=== PATIENT | male | born 1965 | race Two or more races ===

== ENCOUNTER 2019-11-20 10:46 | Outpatient (REF) | payer MEDICARE, SELFPAY ==
--- NOTE | 2019-11-20 10:49 | CT_ITS ---
EXAMINATION: CT CHEST SCREENING CLINICAL INFORMATION: Lung cancer screening COMPARISON: Previous chest x-ray June 2019 TECHNIQUE: Multidetector volumetric CT imaging of the chest is performed without contrast using low dose technique. Additional 2D coronal and sagittal reformatted images and axial 3D maximum intensity projection (MIP) images are generated on the CT workstation. This CT examination was performed using dose optimization techniques as appropriate, variously including the following: *Automated exposure control *Adjustment of mA and/or kV according to patient size (this includes techniques or standardized protocols for targeted exams where dose is matched to indication/reason for exam; i.e. extremities or head) *Use of iterative reconstruction technique DLP: 54 mGy-cm FINDINGS: LUNGS: There is a 3 mm right upper lobe nodule axial image 168 series 5. There is evidence of mild emphysema. No evidence of interstitial lung disease or bronchiectasis is seen. No endobronchial or endotracheal lesion is seen. MEDIASTINUM: The mediastinum is normal. The heart does not appear enlarged. There is no coronary artery calcification. There is no pericardial effusion. There are no enlarged hilar or mediastinal lymph nodes. The thoracic aorta is normal in caliber. PLEURA: There is no pleural effusion. No pleural mass or thickening. AXILLA: No lymphadenopathy. 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 IMPRESSION: Mild emphysema. 3 mm right upper lobe pulmonary nodule. Congenital thoracic scoliosis. ASSESSMENT: Lung-RADS category 2: Benign RECOMMENDATION: Annual low-dose chest CT follow-up recommended.
== END 2019-11-20 10:47 | disposition home or self-care (01) ==
LOC: HO.CT 10:46
PROVIDERS: PCP Internal Medicine; Visit Provider Surgery
DX: Z12.2 Encounter for screening for malignant neoplasm of respiratory organs (principal); Z87.891 Personal history of nicotine dependence
CPT/HCPCS: 71250

== ENCOUNTER 2019-12-10 09:23 | Outpatient (REF) | payer MEDICARE, SELFPAY | END 2019-12-10 09:24 | disposition home or self-care (01) | LOC: HO.LAB 09:23 | PROVIDERS: Visit Provider Internal Medicine | DX: Z20.828 Contact with and (suspected) exposure to other viral communicable diseases (principal) | CPT/HCPCS: 87635 ==

== ENCOUNTER → 2020-03-26 15:37 | Outpatient (BNVA) | payer MEDICARE, SELFPAY | PROVIDERS: PCP Internal Medicine; Visit Provider Urology | DX: Z13.89 Encounter for screening for other disorder (principal) | CPT/HCPCS: 99202 ==

== ENCOUNTER → 2020-04-10 09:41 | Outpatient (BNVA) | payer OTHER, SELFPAY | PROVIDERS: PCP Internal Medicine; Visit Provider Nurse Practitioner | DX: K21.9 Gastro-esophageal reflux disease without esophagitis (principal) | CPT/HCPCS: Q3014 ==

== ENCOUNTER 2020-04-14 09:10 | Outpatient (REF) | payer OTHER, SELFPAY | END 2020-04-14 09:11 | disposition home or self-care (01) | LOC: HO.LNP 09:10 | PROVIDERS: Visit Provider Nurse Practitioner | DX: K21.9 Gastro-esophageal reflux disease without esophagitis (principal) | CPT/HCPCS: 87338 ==

== ENCOUNTER → 2020-04-27 07:40 | Outpatient (BNV) | payer OTHER, SELFPAY | PROVIDERS: PCP Internal Medicine; Visit Provider Internal Medicine | DX: D75.1 Secondary polycythemia (principal) | CPT/HCPCS: 99213; 99214 ==

== ENCOUNTER → 2020-05-15 09:06 | Outpatient (BNVA) | payer OTHER, SELFPAY | PROVIDERS: PCP Internal Medicine; Visit Provider Nurse Practitioner | DX: A04.8 Other specified bacterial intestinal infections (principal); K21.9 Gastro-esophageal reflux disease without esophagitis; E83.119 Hemochromatosis, unspecified; F17.200 Nicotine dependence, unspecified, uncomplicated; Z71.6 Tobacco abuse counseling | CPT/HCPCS: 99212 ==

== ENCOUNTER → 2020-07-07 09:17 | Day surgery (SDC) | payer OTHER, SELFPAY ==
[2020-07-01 12:55] VITALS: BMI 28.4
--- NOTE | 2020-07-06 09:04 | P.CONAN_ITS ---
HPI - Anesthesia Eval Consult details Narrative: 54yo M for Upper Endoscopy [facility] Active Problems Active Problems: All Active Problems (Updated 06/26/20 @ 09:35 by OMAR Heck) H. pylori infection (Acute) Polycythemia (Chronic) GERD (gastroesophageal reflux disease) (Acute) Hemochromatosis (Acute) Right knee pain (Acute) Scoliosis (Acute) Depression (Acute) Hyperlipidemia (Acute) Erectile dysfunction (Acute) Past Medical History Medical History Anxiety Carotid artery aneurysm Depression Dextroscoliosis Erectile dysfunction Erectile dysfunction GERD (gastroesophageal reflux disease) Hemochromatosis Hyperlipidemia Primary hypogonadism in male Right knee pain Schizophrenia Scoliosis Spondylosis Family History Family History Father No problems noted. Mother Breast cancer Surgical History Surgical History H/O colonoscopy History of esophagogastroduodenoscopy (EGD) History of surgery on arm Social History Social History Household Members: Spouse Alcohol intake: current Alcohol intake frequency: holidays/special occasions only Smoking Status: Current every day smoker Cigarettes Per Day: 7 Are you DNR?: No Advance Directives: Yes Advance Directives Information Provided: Yes Advance Directives on File: Yes Advance Directives Date on File: 11/20/19 Meds Allergies Allergy/AdvReac Type Severity Reaction Status Date / Time No Known Allergies Allergy Verified 06/26/20 09:34 [No Known Allergies*] Home Medications Medication Instructions Recorded Confirmed Last Taken Type aripiprazole 2 mg tablet 2 mg PO DAILY 12/24/19 07/01/20 Unknown History mirtazapine 45 mg tablet 45 mg PO BEDTIME 12/24/19 07/01/20 Unknown History zolpidem 10 mg tablet 10 mg PO BEDTIME PRN 12/24/19 07/01/20 Unknown History clonazepam 0.5 mg tablet 0.5 mg PO DAILY 04/10/20 07/01/20 Unknown History pantoprazole 1 tab PO BID 07/01/20 07/01/20 Unknown History Exam Exam Date and Time: July 06, 2020 0904 Height,Weight and Vital Signs: Height 5 ft 6 in Weight 79.832 kg Assessment and Plan Assessment Anesthesia Assessment: Chart Reviewed
== END ==
PROVIDERS: PCP Internal Medicine; Visit Provider Internal Medicine Gastroenterology
DX: R10.13 Epigastric pain (principal); Z53.29 Procedure and treatment not carried out because of patient's decision for other reasons; K21.9 Gastro-esophageal reflux disease without esophagitis; E83.119 Hemochromatosis, unspecified; Z79.899 Other long term (current) drug therapy

== ENCOUNTER 2021-02-01 11:23 | Outpatient (REF) | payer OTHER, SELFPAY ==
[2021-02-01 12:32] LABS: COVID-19 Test Negative (Negative)
== END 2021-02-01 11:24 | disposition home or self-care (01) ==
LOC: HO.LAB 11:23
PROVIDERS: PCP Internal Medicine; Visit Provider Internal Medicine
DX: Z20.822 Contact with and (suspected) exposure to COVID-19 (principal)
CPT/HCPCS: 36415; 87635; C9803

== ENCOUNTER 2021-03-02 13:02 | Outpatient (REF) | payer OTHER, SELFPAY ==
--- NOTE | ~2021-03-02 | CT_ITS ---
EXAMINATION: CT CHEST SCREENING CLINICAL INFORMATION: Current smoker. 41. COMPARISON: Previous CT November 2019 TECHNIQUE: Multidetector volumetric CT imaging of the chest is performed without contrast using low dose technique. Additional 2D coronal and sagittal reformatted images and axial 3D maximum intensity projection (MIP) images are generated on the CT workstation. This CT examination was performed using dose optimization techniques as appropriate, variously including the following: *Automated exposure control *Adjustment of mA and/or kV according to patient size (this includes techniques or standardized protocols for targeted exams where dose is matched to indication/reason for exam; i.e. extremities or head) *Use of iterative reconstruction technique DLP: 49 mGy-cm FINDINGS: LUNGS: There is evidence of emphysema. The previously identified 3 mm right upper lobe nodule is no longer seen and may have represented bronchial soft tissue opacification. The lungs are clear. No endobronchial or endotracheal lesion is seen. MEDIASTINUM: The thoracic aorta is tortuous. The mediastinum is otherwise normal. PLEURA: There is no pleural effusion. No pleural mass or thickening. AXILLA: No lymphadenopathy. UPPER ABDOMEN: Unremarkable OSSEOUS STRUCTURES: There is a congenital thoracic scoliosis and multiple butterfly and hemivertebrae. CT/CT lung screening IMPRESSION: Emphysema. Congenital scoliosis. ASSESSMENT: Lung-RADS category 1: Negative RECOMMENDATION: Annual low-dose chest CT follow-up recommended.
== END 2021-03-02 13:03 | disposition home or self-care (01) ==
LOC: HO.CT 13:02
PROVIDERS: Visit Provider Physician Assistant Medical
DX: Z12.2 Encounter for screening for malignant neoplasm of respiratory organs (principal); Z87.891 Personal history of nicotine dependence
CPT/HCPCS: 71271

== ENCOUNTER → 2021-03-25 09:33 | Outpatient (BNVA) | payer OTHER, SELFPAY | PROVIDERS: PCP Internal Medicine; Visit Provider Internal Medicine Endocrinology, Diabetes & Metabolism | DX: E29.1 Testicular hypofunction (principal) | CPT/HCPCS: 99202 ==

== ENCOUNTER 2021-04-27 07:48 | Outpatient (REF) | payer OTHER, SELFPAY ==
[2021-04-27 08:27] LABS: Hematocrit 53.8 % (42.0-52.0); Hemoglobin 17.6 g/dl (14.0-18.0); Mean Corpuscular HGB Conc 32.7 g/dl (31.0-36.0); Mean Corpuscular Hemoglobin 30.2 pg (27.0-33.0); Mean Corpuscular Volume 92.3 fL (80.0-98.0); Mean Platelet Volume 10.1 fL (9.4-12.4); Platelet Count 243 X10*3/uL (160-400); Red Blood Count 5.83 X10*6/uL (4.60-5.80); Red Cell Distribution Width 12.6 % (11.0-16.0); White Blood Count 6.9 X10*3/uL (4.8-10.8)
[2021-04-27 08:54] LABS: Alanine Aminotransferase 24 U/L (0-40); Albumin Level 3.9 g/dL (3.5-5.0); Alkaline Phosphatase 63 U/L (39-117); Anion Gap 11 (12-20); Aspartate Amino Transferase 19 U/L (5-37); Bilirubin Total 0.2 mg/dL (0.0-1.0); Blood Urea Nitrogen 11 mg/dL (9-16); Carbon Dioxide 27 mmol/L (22-29); Chloride 106 mmol/L (96-108); Cholesterol 185 mg/dL; Estimated Glomerular Filt Rate > 60; Glucose Fasting 113 mg/dL (60-99); HDL Cholesterol 42 mg/dL; LDL Cholesterol Calculated 126 mg/dl; Potassium 4.7 mmol/L (3.3-5.1); Sodium 139 mmol/L (135-145); Total Protein 7.2 g/dL (6.5-8.0); Triglycerides 89 mg/dL
== END 2021-04-27 07:49 | disposition home or self-care (01) ==
LOC: HO.LAB 07:48
PROVIDERS: PCP Internal Medicine; Visit Provider Internal Medicine
DX: Z00.00 Encounter for general adult medical examination without abnormal findings (principal); E78.5 Hyperlipidemia, unspecified
CPT/HCPCS: 36415; 80053; 80061; 85027

== ENCOUNTER → 2021-05-04 16:21 | Outpatient (BNVA) | payer OTHER, SELFPAY | PROVIDERS: PCP Internal Medicine; Referring Provider Internal Medicine; Visit Provider Nurse Practitioner | DX: A04.8 Other specified bacterial intestinal infections (principal); K21.9 Gastro-esophageal reflux disease without esophagitis | CPT/HCPCS: 99212 ==

== ENCOUNTER 2021-05-08 08:32 | Outpatient (REF) | payer OTHER, SELFPAY | END 2021-05-08 08:33 | disposition home or self-care (01) | LOC: HO.LNP 08:32 | PROVIDERS: Visit Provider Nurse Practitioner | DX: A04.8 Other specified bacterial intestinal infections (principal) | CPT/HCPCS: 87338 ==

== ENCOUNTER 2021-05-17 08:30 | Outpatient (REF) | payer OTHER, SELFPAY ==
[2021-05-17 11:15] LABS: Appearance Urine CLEAR; Color Urine YELLOW; Glucose Urine UA NEG (NEG); Leukocyte Esterase Urine NEG (NEG); Nitrite Urine NEG (NEG); PH 5.5 (5.0-8.0); Specific Gravity - Urine >= 1.030 (1.005-1.025); Urine Blood NEG (NEG); Urine Ketones NEG (NEG); Urine Protein NEG (NEG-TRACE)
[2021-05-17 11:34] LABS: Bacteria Urine TRACE /LPF; Renal Epithelial Cells Urine 1+ /LPF; Squamous Epithelial Cell Urine 3+ /LPF
== END 2021-05-17 08:31 | disposition home or self-care (01) ==
LOC: HO.BBR 08:30
PROVIDERS: PCP Internal Medicine; Visit Provider Internal Medicine
DX: D75.1 Secondary polycythemia (principal); E78.5 Hyperlipidemia, unspecified; F32.9 Major depressive disorder, single episode, unspecified; E83.119 Hemochromatosis, unspecified
CPT/HCPCS: 81001; 85018; 99195

== ENCOUNTER 2021-06-30 07:47 | Outpatient (REF) | payer OTHER, SELFPAY ==
--- NOTE | ~2021-06-30 | MM_ITS ---
EXAMINATION: BONE DENSITOMETRY CLINICAL INDICATION: Screening. COMPARISON: None (current study represents initial baseline exam). TECHNIQUE: Using a [employer] DXA System (software version: 13.1) manufactured by [employer], dual-energy x-ray absorptiometry was performed of the lumbar spine and left hip. The images are of good technical quality. Summary results are attached. FINDINGS: AP SPINE L2-L4 (excluding L1): The data of L1-L4 has been changed to exclude the L1 vertebral body, because degenerative changes at this level may cause overestimation of lumbar spine density. BMD 0.962 g/cm2, Z-score -1.9, T-score -2.3, osteopenia. LEFT FEMUR, NECK: BMD 0.848 g/cm2, Z-score -0.8, T-score -1.7, osteopenia. LEFT FEMUR, TOTAL: BMD 1.003 g/cm2, Z-score -0.2, T-score -0.7, normal. IDENTIFIED RISK FACTORS: Hypogonadism, osteoporosis, secondary osteoporosis, tobacco use (current smoker). HISTORY OF FRACTURE: None listed. MEDICATIONS: None listed. MM/XR DEXA axial skeleton IMPRESSION: 1. DIAGNOSIS: Osteopenia based on the lowest T-score value of -2.3 in the lumbar spine applying World Health Organization criteria. 2. 10-YEAR FRACTURE RISK PREDICTION, FRAX: Major osteoporotic fracture (clinical spine, forearm, hip or shoulder) 3.4%. Hip fracture 0.7%. 3. Treatment Recommendations: NOF guidelines recommend consideration for treatment in postmenopausal women and men age 50 and older presenting with the following: -A hip or vertebral (clinical or morphometric) fracture. -T-score less than or equal to -2.5 at the femoral neck or spine after appropriate evaluation to exclude secondary causes. -Low bone mass at the hip or spine and a 10-year fracture probability by FRAX of greater than or equal to 3% for hip fracture or greater than or equal to 20% for major osteoporotic fracture based on the [place] adapted WHO algorithm. 4. Other Recommendations: All treatment decisions require clinical judgment and consideration of individual patient factors, including patient preferences, comorbidities, previous drug use, risk factors not captured in the FRAX model (e.g. frailty, falls, vitamin D deficiency, increased bone turnover, interval significant decline in bone density) and possible under or overestimation of fracture risk by FRAX. Additional medical evaluation for secondary cause of low bone mineral density may be appropriate. FUTURE SCAN RECOMMENDATION: People with diagnosed cases of osteoporosis or at high risk for fracture should have regular bone mineral density tests. For patients eligible for Medicare, routine testing is allowed once every 2 years. The testing frequency can be increased to one year for patients who have rapidly progressing disease, those who are receiving or discontinuing medical therapy to restore bone mass, or have additional risk factors.
== END 2021-06-30 07:48 | disposition home or self-care (01) ==
LOC: HO.RESP 07:47
PROVIDERS: PCP Internal Medicine; Visit Provider Internal Medicine
DX: Z00.00 Encounter for general adult medical examination without abnormal findings (principal); Z13.820 Encounter for screening for osteoporosis; E29.1 Testicular hypofunction; F17.210 Nicotine dependence, cigarettes, uncomplicated; G47.33 Obstructive sleep apnea (adult) (pediatric); G47.30 Sleep apnea, unspecified; R06.83 Snoring; R40.0 Somnolence
CPT/HCPCS: 77080

== ENCOUNTER → 2021-07-09 07:37 | Outpatient (BNVA) | payer OTHER, SELFPAY | PROVIDERS: PCP Internal Medicine; Visit Provider Nurse Practitioner | DX: K21.9 Gastro-esophageal reflux disease without esophagitis (principal); K59.04 Chronic idiopathic constipation | CPT/HCPCS: 99212 ==

== ENCOUNTER 2021-08-17 08:51 | Outpatient (REF) | payer OTHER, SELFPAY | END 2021-08-17 08:52 | disposition home or self-care (01) | LOC: HO.BBR 08:51 | PROVIDERS: Visit Provider Internal Medicine | DX: D75.1 Secondary polycythemia (principal) | CPT/HCPCS: 85018; 99195 ==

== ENCOUNTER 2021-09-13 11:40 | Outpatient (REF) | payer OTHER, SELFPAY ==
[2021-09-13 12:29] LABS: COVID-19 Test Negative (Negative); IDNOW Serial# 16C4AD1C
== END 2021-09-13 11:41 | disposition home or self-care (01) ==
LOC: HO.LAB 11:40
PROVIDERS: Visit Provider Internal Medicine
DX: Z20.822 Contact with and (suspected) exposure to COVID-19 (principal)
CPT/HCPCS: 87635; C9803

== ENCOUNTER 2021-11-17 07:58 | Outpatient (REF) | payer OTHER, SELFPAY | END 2021-11-17 07:59 | disposition home or self-care (01) | LOC: HO.BBR 07:58 | PROVIDERS: PCP Internal Medicine; Visit Provider Internal Medicine | DX: D75.1 Secondary polycythemia (principal) | CPT/HCPCS: 85014; 85018; 99195 ==

== ENCOUNTER 2022-02-17 08:56 | Outpatient (REF) | payer OTHER, SELFPAY | END 2022-02-17 08:57 | disposition home or self-care (01) | LOC: HO.BBR 08:56 | PROVIDERS: PCP Internal Medicine; Visit Provider Internal Medicine | DX: D75.1 Secondary polycythemia (principal) | CPT/HCPCS: 85018; 99195 ==

== ENCOUNTER 2022-03-10 08:16 | Outpatient (REF) | payer OTHER, SELFPAY ==
--- NOTE | ~2022-03-10 | CT_ITS ---
EXAMINATION: CT CHEST SCREENING CLINICAL INFORMATION: Current smoker with 30 pack-year history of smoking. COMPARISON: 03/02/2021 and 11/20/2019. TECHNIQUE: Multidetector volumetric CT imaging of the chest is performed without contrast using low dose technique. Additional 2D coronal and sagittal reformatted images and axial 3D maximum intensity projection (MIP) images are generated on the CT workstation. This CT examination was performed using dose optimization techniques as appropriate, variously including the following: *Automated exposure control *Adjustment of mA and/or kV according to patient size (this includes techniques or standardized protocols for targeted exams where dose is matched to indication/reason for exam; i.e. extremities or head) *Use of iterative reconstruction technique DLP: 50 mGy-cm FINDINGS: LUNGS: Central airways are widely patent. There is mild bronchial wall thickening seen bilaterally. No bronchiectasis is seen. No confluent parenchymal disease is noted. There are a few scattered 1 to 2 mm densities with no suspicious nodule appreciated. MEDIASTINUM: The visualized thyroid gland appears unremarkable. Heart normal size. No pericardial effusion. No coronary artery calcification identified. No mediastinal or hilar lymphadenopathy. No thoracic aortic aneurysm. CORONARY ARTERY CALCIFICATION: None visualized on this study. PLEURA: There is no pleural effusion. No pleural mass or thickening. AXILLA: No lymphadenopathy. UPPER ABDOMEN: There is a small hiatal hernia present. OSSEOUS STRUCTURES: No destructive bony lesions identified. There is congenital scoliosis of the upper thoracic spine convex left and of the lower thoracic spine convex right. 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 CT/CT lung screening IMPRESSION: No significant lung nodules identified. Scattered 1 to 2 mm densities. No significant emphysematous change appreciated. Congenital scoliosis with multiple hemivertebrae present. ASSESSMENT: Lung-RADS category 2: Benign RECOMMENDATION: Routine annual low-dose CT screening in 12 months.
== END 2022-03-10 08:17 | disposition home or self-care (01) ==
LOC: HO.CT 08:16
PROVIDERS: PCP Internal Medicine; Visit Provider Physician Assistant Medical
DX: Z12.2 Encounter for screening for malignant neoplasm of respiratory organs (principal); Z87.891 Personal history of nicotine dependence
CPT/HCPCS: 71271

== ENCOUNTER → 2022-03-15 13:52 | Outpatient (BNVA) | payer OTHER, SELFPAY | PROVIDERS: PCP Internal Medicine; Visit Provider Nurse Practitioner Family | DX: N52.9 Male erectile dysfunction, unspecified (principal) | CPT/HCPCS: 99212 ==

== ENCOUNTER 2022-05-08 12:48 | Emergency (ER) | payer OTHER, SELFPAY ==
--- NOTE | ~2022-05-08 | CT_ITS ---
EXAMINATION: CT ABDOMEN AND PELVIS WITHOUT CONTRAST CLINICAL INFORMATION: Right flank/back pain. COMPARISON: None available. TECHNIQUE: Multidetector volumetric imaging was performed from the superior aspect of the liver through the pubic symphysis. Sagittal and coronal reformatted images were obtained on the technologist's workstation. This CT examination was performed using dose optimization techniques as appropriate, variously including the following: *Automated exposure control *Adjustment of mA and/or kV according to patient size (this includes techniques or standardized protocols for targeted exams where dose is matched to indication/reason for exam; i.e. extremities or head) *Use of iterative reconstruction technique DLP: 481 mGy-cm FINDINGS: LUNG BASES: No focal consolidation or pleural effusion. LIVER, GALLBLADDER, AND BILIARY TREE: The liver is normal in size, shape and attenuation. There are a few too small to characterize hypodensities, for instance in the left hepatic lobe (3:14 and 3:10) and right hepatic lobe (3:20 and 3:23). Normal appearance of the gallbladder. No biliary ductal dilatation. PANCREAS: Limited noncontrast examination. No significant peripancreatic fat stranding or free fluid. SPLEEN: Limited noncontrast examination, unremarkable. ADRENAL GLANDS: No adrenal nodule or mass. KIDNEYS AND URETERS: Limited noncontrast examination. No nephrolithiasis or hydronephrosis. No significant perinephric fat stranding. BLADDER: Underdistended with equivocal diffuse wall thickening. No significant perivesical fat stranding. No intraluminal calculi. GASTROINTESTINAL TRACT: Small hiatal hernia. Nonspecific gastric distention, possibly related with postprandial state. The small bowel is nondilated. Normal appendix. No pericolonic inflammatory changes to suspect acute diverticulitis or colitis. No bowel obstruction. ABDOMINAL WALL: No significant hernia is appreciated. LYMPH NODES: No lymphadenopathy. VASCULAR: Limited noncontrast examination, abdominal aorta is normal in caliber with scattered atherosclerotic disease. PELVIC VISCERA: Mild prostatomegaly. OSSEOUS STRUCTURES: No acute or aggressive appearing osseous abnormalities. 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 CT/CT abdomen pelvis wo IV con IMPRESSION: 1. No nephrolithiasis or hydronephrosis. 2. Equivocal urinary bladder wall thickening, correlate clinically for cystitis. 3. Small hiatal hernia. 4. Nonspecific gastric distention, possibly related with postprandial state. 5. Too small to characterize liver hypodensities, although statistically these are likely to represent cysts, given patient's age, further characterization with an elective abdominal MRI with and without IV contrast is recommended to rule out malignancy.
[2022-05-08 13:04] VITALS: BP 112/72; PULSE 95; RESP 18; TEMP 36.6; O2SAT 98; BMI 27.4
--- NOTE | 2022-05-08 13:04 | ED_ITS ---
HPI - General Adult General Chief complaint: Urogenital-Male Stated complaint: back pain Time Seen by Provider: 05/08/22 19:56 Related Data Home Medications Medication Instructions Recorded Confirmed aripiprazole 2 mg tablet (Abilify) 2 mg PO DAILY 12/24/19 04/25/22 mirtazapine 45 mg tablet 45 mg PO BEDTIME 12/24/19 04/25/22 zolpidem 10 mg tablet (Ambien) 10 mg PO BEDTIME PRN Insomnia 12/24/19 04/25/22 aspirin 81 mg tablet,delayed 81 mg PO DAILY 03/25/21 04/25/22 release bismuth subsalicylate 262 mg tablet 2 tab PO QID 05/13/21 04/25/22 Previous Rx's Medication Instructions Recorded miscellaneous medical supply #1 ea 02/27/20 pravastatin 80 mg tablet 80 mg PO DAILY #90 tabs 05/10/21 cholecalciferol (vitamin D3) 50 50 mcg PO DAILY #90 caps 07/08/21 mcg (2,000 unit) capsule pantoprazole 40 mg tablet,delayed 40 mg PO BID #60 tabs 07/09/21 release sennosides 8.6 mg capsule (senna) 17.2 mg PO BEDTIME constipation 30 07/09/21 days #60 caps tadalafil 5 mg tablet (Cialis) 5 mg PO DAILY 90 days #90 tabs 03/15/22 cyclobenzaprine 10 mg tablet 10 mg PO Q8H #20 tabs 05/08/22 oxycodone 5 mg tablet 5 mg PO Q6H PRN pain #20 tabs 05/08/22 Allergies Allergy/AdvReac Type Severity Reaction Status Date / Time No Known Allergies Allergy Verified 05/08/22 13:03 [No Known Allergies*] [facility] Past Medical History Medical History Annual physical exam Anxiety Carotid artery aneurysm Depression Dextroscoliosis Erectile dysfunction GERD (gastroesophageal reflux disease) Hyperlipidemia Primary hypogonadism in male Right knee pain Schizophrenia Scoliosis Sleep apnea Spondylosis Tobacco dependence Surgical History H/O colonoscopy History of esophagogastroduodenoscopy (EGD) History of surgery on arm Family History Family History Father No problems noted. Mother Breast cancer Brother Mental health disorder PTSD (post-traumatic stress disorder) Social History Social History Household Members: Family Housing: Apartment Are you a primary animal care service worker to a significant other at home: No Do you presently have visiting nurse or other home services: Yes Alcohol intake: current Alcohol intake frequency: holidays/special occasions only Patient Tobacco Use Status: Current everyday Tobacco user Tobacco use type: Cigarette Cigarettes Per Day: 5 e-Cigarette/Vaping Use: Never Used Second Hand Smoke Exposure: No Advance Directives: Yes Advance Directives on File: Yes Advance Directives Date on File: 11/20/19 service: No Current occupational status: unemployed Current occupational exposures/hazards: No Cognitive needs: No Hearing needs: No Vision needs: Yes Physical Exam ED Vital Signs: Vital Signs - 24 hr 05/08/22 13:04 Temperature 98 F Pulse Rate 95 Respiratory Rate 18 Blood Pressure 112/72 Pulse Oximetry 98 Oxygen Delivery Method Room Air BMI result Body Mass Index 27.4 Course Course Course Narrative: RME: 56 yold male presents to the ED for RIght back/flank pain for couple of days. no symptoms or trauama. NO signs urinary/bowel incontinence. no abdominal tenderness on palpation. labs, uA, and dry abdominal CT scan ordered. Positive for significant Right CVA tenderness. NO spine tenderness on palpation. Medications Administered Discontinued Medications Generic Name Dose Route Start Last Admin Trade Name Freq PRN Reason Stop Dose Admin Cyclobenzaprine HCl 10 mg 05/08/22 20:38 05/08/22 21:12 Cyclobenzaprine Hcl 10 Mg Tablet PO 05/08/22 20:39 Not Given ONCE ONE Oxycodone HCl 5 mg 05/08/22 20:38 05/08/22 21:12 Oxycodone Hcl Immed Release 5 Mg Tablet PO 05/08/22 20:39 Not Given ONCE ONE Medical Decision Making Lab Data 05/08/22 14:19 05/08/22 14:19 Labs: Lab Results 05/08/22 05/08/22 05/08/22 Range/Units 14:19 14:19 14:19 WBC 8.4 (4.8-10.8) X10*3/uL RBC 6.06 H (4.60-5.80) X10*6/uL Hgb 17.6 (14.0-18.0) g/dl Hct 53.4 H (42.0-52.0) % MCV 88.1 (80.0-98.0) fL MCH 29.0 (27.0-33.0) pg MCHC 33.0 (31.0-36.0) g/dl RDW 13.2 (11.0-16.0) % Plt Count 278 (160-400) X10*3/uL MPV 10.0 (9.4-12.4) fL Immature Gran % (Auto) 0.2 (0.0-0.4) % Neut % (Auto) 56.7 (45-73) % Lymph % (Auto) 32.5 (20-40) % Pitt % (Auto) 6.7 (2-11) % Eos % (Auto) 3.1 (0-4) % Baso % (Auto) 0.8 (0-2) % Lymph # (Auto) 2.7 (1.2-4.9) X10*3/uL Pitt # (Auto) 0.6 (0.1-1.2) X10*3/uL Eos # (Auto) 0.3 (0.0-0.4) X10*3/uL Baso # (Auto) 0.1 (0.0-0.2) X10*3/uL Abs Immat Gran (auto) 0.02 (0.00-0.03) X10*3/uL Absolute Neuts (auto) 4.8 (2.0-8.3) x10*3/uL Absolute Nucleated RBC 0.000 (0.0-0.012) X10*3/uL Nucleated RBC % (auto) 0.0 (0.0-0.2) /100WBC PT 11.6 (10.0-13.1) SEC INR 1.0 (0.9-1.1) APTT 35.6 (26.0-36.4) SEC Sodium 141 (135-145) mmol/L Potassium 5.0 (3.3-5.1) mmol/L Chloride 104 (96-108) mmol/L Carbon Dioxide 28 (22-29) mmol/L Anion Gap 14 (12-20) BUN 11 (9-16) mg/dL Creatinine 1.11 (0.5-1.4) mg/dL Estim Creat Clear Calc 70.9 Estimated GFR > 60 Random Glucose 93 (60-115) mg/dL Calcium 9.6 D (8.4-10.2) mg/dL Total Bilirubin 0.6 (0.0-1.0) mg/dL AST 16 (5-37) U/L ALT 14 (0-40) U/L Alkaline Phosphatase 72 (39-117) U/L Total Protein 7.5 (6.5-8.0) g/dL Albumin 4.1 (3.5-5.0) g/dL Urine Color Urine Appearance Urine pH (5.0-9.0) Ur Specific Rough And Ready (1.005-1.025) Urine Protein (Neg-Trace) mg/dL Urine Glucose (UA) (Negative) mg/dL Urine Ketones (Negative) mg/dL Urine Blood (Negative) Urine Nitrite (Negative) Ur Leukocyte Esterase (Negative) 05/08/22 Range/Units 14:19 WBC (4.8-10.8) X10*3/uL RBC (4.60-5.80) X10*6/uL Hgb (14.0-18.0) g/dl Hct (42.0-52.0) % MCV (80.0-98.0) fL MCH (27.0-33.0) pg MCHC (31.0-36.0) g/dl RDW (11.0-16.0) % Plt Count (160-400) X10*3/uL MPV (9.4-12.4) fL Immature Gran % (Auto) (0.0-0.4) % Neut % (Auto) (45-73) % Lymph % (Auto) (20-40) % Pitt % (Auto) (2-11) % Eos % (Auto) (0-4) % Baso % (Auto) (0-2) % Lymph # (Auto) (1.2-4.9) X10*3/uL Pitt # (Auto) (0.1-1.2) X10*3/uL Eos # (Auto) (0.0-0.4) X10*3/uL Baso # (Auto) (0.0-0.2) X10*3/uL Abs Immat Gran (auto) (0.00-0.03) X10*3/uL Absolute Neuts (auto) (2.0-8.3) x10*3/uL Absolute Nucleated RBC (0.0-0.012) X10*3/uL Nucleated RBC % (auto) (0.0-0.2) /100WBC PT (10.0-13.1) SEC INR (0.9-1.1) APTT (26.0-36.4) SEC Sodium (135-145) mmol/L Potassium (3.3-5.1) mmol/L Chloride (96-108) mmol/L Carbon Dioxide (22-29) mmol/L Anion Gap (12-20) BUN (9-16) mg/dL Creatinine (0.5-1.4) mg/dL Estim Creat Clear Calc Estimated GFR Random Glucose (60-115) mg/dL Calcium (8.4-10.2) mg/dL Total Bilirubin (0.0-1.0) mg/dL AST (5-37) U/L ALT (0-40) U/L Alkaline Phosphatase (39-117) U/L Total Protein (6.5-8.0) g/dL Albumin (3.5-5.0) g/dL Urine Color Yellow Urine Appearance Clear Urine pH 5.5 (5.0-9.0) Ur Specific Rough [place] Ready 1.025 (1.005-1.025) Urine Protein Negative (Neg-Trace) mg/dL Urine Glucose (UA) Negative (Negative) mg/dL Urine Ketones Trace (Negative) mg/dL Urine Blood Negative (Negative) Urine Nitrite Negative (Negative) Ur Leukocyte Esterase Negative (Negative) Discharge Plan Discharge Clinical Impression: Strain of lumbar paraspinal muscle Patient Disposition: Home, Self-Care Instructions: Low Back Strain (ED) Additional Instructions: Take pain medication muscle relaxant as prescribed Follow-up with PCP Prescriptions: New cyclobenzaprine 10 mg tablet 10 mg PO Q8H Qty: 20 0RF oxycodone 5 mg tablet 5 mg PO Q6H PRN (Reason: pain) Qty: 20 0RF Rx Instructions: Partial Fill upon patient request. No Action (DME) miscellaneous medical supply Misc See Rx Instructions .ROUTE .MEDSUPPLY Qty: 1 0RF Rx Instructions: mattress topper pravastatin 80 mg tablet 80 mg PO DAILY Qty: 90 3RF cholecalciferol (vitamin D3) 50 mcg (2,000 unit) capsule 50 mcg PO DAILY Qty: 90 3RF bismuth subsalicylate 262 mg Tablet 2 tab PO QID mirtazapine 45 mg tablet 45 mg PO BEDTIME aripiprazole [Abilify] 2 mg tablet 2 mg PO DAILY zolpidem [Ambien] 10 mg tablet 10 mg PO BEDTIME PRN (Reason: Insomnia) aspirin 81 mg tablet,delayed release (DR/EC) 81 mg PO DAILY senna 8.6 mg capsule 17.2 mg PO BEDTIME 30 Days Qty: 60 6RF pantoprazole 40 mg tablet,delayed release (DR/EC) 40 mg PO BID Qty: 60 6RF tadalafil [Cialis] 5 mg tablet 5 mg PO DAILY 90 Days Qty: 90 0RF Rx Instructions: [facility] [address] [id number] Interventions: ED Discharge Assessment Last Done: 05/08/22 20:55 Discharge Date/Time: 05/08/22 21:12 Print Language: Salvadorean
[2022-05-08 14:25] LABS: MANUAL DIFF FLAG NO
[2022-05-08 14:26] LABS: Basophils Absolute Auto 0.1 X10*3/uL (0.0-0.2); Basophils Percent Auto 0.8 % (0-2); Eosinophils Absolute Auto 0.3 X10*3/uL (0.0-0.4); Eosinophils Percent Auto 3.1 % (0-4); Hematocrit 53.4 % (42.0-52.0); Hemoglobin 17.6 g/dl (14.0-18.0); Imm Gran Abs Auto 0.02 X10*3/uL (0.00-0.03); Imm Gran Pct Auto 0.2 % (0.0-0.4); Lymphocytes Absolute Auto 2.7 X10*3/uL (1.2-4.9); Lymphocytes Percent Auto 32.5 % (20-40); Mean Corpuscular Volume 88.1 fL (80.0-98.0); Monocytes Absolute Auto 0.6 X10*3/uL (0.1-1.2); Monocytes Percent Auto 6.7 % (2-11); Neutrophils Absolute Auto 4.8 x10*3/uL (2.0-8.3); Neutrophils Percent Auto 56.7 % (45-73); Platelet Count 278 X10*3/uL (160-400); Red Blood Count 6.06 X10*6/uL (4.60-5.80); Red Cell Distribution Width 13.2 % (11.0-16.0); White Blood Count 8.4 X10*3/uL (4.8-10.8)
[2022-05-08 14:28] LABS: Appearance Urine Clear; Color Urine Yellow; Glucose Urine UA Negative (Negative); Leukocyte Esterase Urine Negative (Negative); Nitrite Urine Negative (Negative); PH 5.5 (5.0-9.0); Specific Gravity - Urine 1.025 (1.005-1.025); Urine Blood Negative (Negative); Urine Ketones Trace mg/dL (Negative); Urine Protein Negative (Neg-Trace)
[2022-05-08 14:41] LABS: Alanine Aminotransferase 14 U/L (0-40); Albumin Level 4.1 g/dL (3.5-5.0); Alkaline Phosphatase 72 U/L (39-117); Anion Gap 14 (12-20); Aspartate Amino Transferase 16 U/L (5-37); Bilirubin Total 0.6 mg/dL (0.0-1.0); Blood Urea Nitrogen 11 mg/dL (9-16); Calcium 9.6 mg/dL (8.4-10.2); Carbon Dioxide 28 mmol/L (22-29); Chloride 104 mmol/L (96-108); Creatinine Clr Calc Pharmacy 70.9; Estimated Glomerular Filt Rate > 60; Glucose Random 93 mg/dL (60-115); Sodium 141 mmol/L (135-145); Total Protein 7.5 g/dL (6.5-8.0)
[2022-05-08 14:44] LABS: Prothrombin Time 11.6 SEC (10.0-13.1)
[2022-05-08 14:46] LABS: Partial Thromboplastin Time 35.6 SEC (26.0-36.4)
--- NOTE | 2022-05-08 20:44 | ED.BACK ---
HPI - Back Pain/Injury General Chief Complaint: Urogenital-Male Stated Complaint: back pain Time Seen by Provider: 05/08/22 19:56 Source: patient Mode of arrival: ambulatory Limitations: no limitations History of Present Illness HPI Narrative: Patient with history of scoliosis comes here with bilateral flank pain for last 4 - 5 days no urinary symptoms no history of kidney stone no nausea no vomiting no trauma Related Data Home Medications Medication Instructions Recorded Confirmed aripiprazole 2 mg tablet (Abilify) 2 mg PO DAILY 12/24/19 04/25/22 mirtazapine 45 mg tablet 45 mg PO BEDTIME 12/24/19 04/25/22 zolpidem 10 mg tablet (Ambien) 10 mg PO BEDTIME PRN Insomnia 12/24/19 04/25/22 aspirin 81 mg tablet,delayed 81 mg PO DAILY 03/25/21 04/25/22 release bismuth subsalicylate 262 mg tablet 2 tab PO QID 05/13/21 04/25/22 Previous Rx's Medication Instructions Recorded miscellaneous medical supply #1 ea 02/27/20 pravastatin 80 mg tablet 80 mg PO DAILY #90 tabs 05/10/21 cholecalciferol (vitamin D3) 50 50 mcg PO DAILY #90 caps 07/08/21 mcg (2,000 unit) capsule pantoprazole 40 mg tablet,delayed 40 mg PO BID #60 tabs 07/09/21 release sennosides 8.6 mg capsule (senna) 17.2 mg PO BEDTIME constipation 30 07/09/21 days #60 caps tadalafil 5 mg tablet (Cialis) 5 mg PO DAILY 90 days #90 tabs 03/15/22 cyclobenzaprine 10 mg tablet 10 mg PO Q8H #20 tabs 05/08/22 oxycodone 5 mg tablet 5 mg PO Q6H PRN pain #20 tabs 05/08/22 Allergies Allergy/AdvReac Type Severity Reaction Status Date / Time No Known Allergies Allergy Verified 05/08/22 13:03 [No Known Allergies*] Review of Systems Review of Systems: Yes all other systems are reviewed and are negative PMFSH Past Medical History Medical History Annual physical exam Anxiety Carotid artery aneurysm Depression Dextroscoliosis Erectile dysfunction GERD (gastroesophageal reflux disease) Hyperlipidemia Primary hypogonadism in male Right knee pain Schizophrenia Scoliosis Sleep apnea Spondylosis Tobacco dependence Surgical History H/O colonoscopy History of esophagogastroduodenoscopy (EGD) History of surgery on arm Family History Family History Father No problems noted. Mother Breast cancer Brother Mental health disorder PTSD (post-traumatic stress disorder) Social History Social History Household Members: Family Housing: Apartment Are you a primary rehab care assistant to a significant other at home: No Do you presently have visiting nurse or other home services: Yes Alcohol intake: current Alcohol intake frequency: holidays/special occasions only Patient Tobacco Use Status: Current everyday Tobacco user Tobacco use type: Cigarette Cigarettes Per Day: 5 e-Cigarette/Vaping Use: Never Used Second Hand Smoke Exposure: No Advance Directives: Yes Advance Directives on File: Yes Advance Directives Date on File: 11/20/19 service: No Current occupational status: unemployed Current occupational exposures/hazards: No Cognitive needs: No Hearing needs: No Vision needs: Yes Physical Exam Vital Signs: Vital Signs: Last Vital Signs Temp 98 F 05/08/22 13:04 Pulse 95 05/08/22 13:04 Resp 18 05/08/22 13:04 BP 112/72 05/08/22 13:04 Pulse Ox 98 05/08/22 13:04 O2 Del Method Room Air 05/08/22 13:04 BMI result Body Mass Index 27.4 Appearance: Alert. Oriented X3. No acute distress. Eyes: No pallor or icterus ENT: Pharynx normal. Oral Mucosa moist Neck: Normal inspection. Neck supple. CVS: Normal heart rate and rhythm. Pulses normal. Respiratory: No respiratory distress. Equal air entry bilateral, no wheezing/rales/rhonchi Abdomen: Soft and nontender. Bowel sounds are present, no mass palpable, no CVA tenderness Skin: Skin warm and dry. Normal skin color. Normal skin turgor. Extremities: No lower extremity edema. No calf tenderness back: Bilateral paraspinal tenderness upper lumbar area Neuro: Oriented X 3. No motor deficit. Medical Decision Making Medical Decision Making MDM Narrative: Patient lab stable CT scan negative for acute pathology patient clinically has muscular her pain bilateral paraspinal area patient home on oxycodone Flexeril Lab Data [facility] Lab Attestation statement: I reviewed the patient's lab results. 05/08/22 14:19 05/08/22 14:19 Labs: Lab Results 05/08/22 05/08/22 05/08/22 Range/Units 14:19 14:19 14:19 WBC 8.4 (4.8-10.8) X10*3/uL RBC 6.06 H (4.60-5.80) X10*6/uL Hgb 17.6 (14.0-18.0) g/dl Hct 53.4 H (42.0-52.0) % MCV 88.1 (80.0-98.0) fL MCH 29.0 (27.0-33.0) pg MCHC 33.0 (31.0-36.0) g/dl RDW 13.2 (11.0-16.0) % Plt Count 278 (160-400) X10*3/uL MPV 10.0 (9.4-12.4) fL Immature Gran % (Auto) 0.2 (0.0-0.4) % Neut % (Auto) 56.7 (45-73) % Lymph % (Auto) 32.5 (20-40) % [place] % (Auto) 6.7 (2-11) % Eos % (Auto) 3.1 (0-4) % Baso % (Auto) 0.8 (0-2) % Lymph # (Auto) 2.7 (1.2-4.9) X10*3/uL [place] # (Auto) 0.6 (0.1-1.2) X10*3/uL Eos # (Auto) 0.3 (0.0-0.4) X10*3/uL Baso # (Auto) 0.1 (0.0-0.2) X10*3/uL Abs Immat Gran (auto) 0.02 (0.00-0.03) X10*3/uL Absolute Neuts (auto) 4.8 (2.0-8.3) x10*3/uL Absolute Nucleated RBC 0.000 (0.0-0.012) X10*3/uL Nucleated RBC % (auto) 0.0 (0.0-0.2) /100WBC PT 11.6 (10.0-13.1) SEC INR 1.0 (0.9-1.1) APTT 35.6 (26.0-36.4) SEC Sodium 141 (135-145) mmol/L Potassium 5.0 (3.3-5.1) mmol/L Chloride 104 (96-108) mmol/L Carbon Dioxide 28 (22-29) mmol/L Anion Gap 14 (12-20) BUN 11 (9-16) mg/dL Creatinine 1.11 (0.5-1.4) mg/dL Estim Creat Clear Calc 70.9 Estimated GFR > 60 Random Glucose 93 (60-115) mg/dL Calcium 9.6 D (8.4-10.2) mg/dL Total Bilirubin 0.6 (0.0-1.0) mg/dL AST 16 (5-37) U/L ALT 14 (0-40) U/L Alkaline Phosphatase 72 (39-117) U/L Total Protein 7.5 (6.5-8.0) g/dL Albumin 4.1 (3.5-5.0) g/dL Urine Color Urine Appearance Urine pH (5.0-9.0) Ur Specific [place] (1.005-1.025) Urine Protein (Neg-Trace) mg/dL Urine Glucose (UA) (Negative) mg/dL Urine Ketones (Negative) mg/dL Urine Blood (Negative) Urine Nitrite (Negative) Ur Leukocyte Esterase (Negative) 05/08/22 Range/Units 14:19 WBC (4.8-10.8) X10*3/uL RBC (4.60-5.80) X10*6/uL Hgb (14.0-18.0) g/dl Hct (42.0-52.0) % MCV (80.0-98.0) fL MCH (27.0-33.0) pg MCHC (31.0-36.0) g/dl RDW (11.0-16.0) % Plt Count (160-400) X10*3/uL MPV (9.4-12.4) fL Immature Gran % (Auto) (0.0-0.4) % Neut % (Auto) (45-73) % Lymph % (Auto) (20-40) % [place] % (Auto) (2-11) % Eos % (Auto) (0-4) % Baso % (Auto) (0-2) % Lymph # (Auto) (1.2-4.9) X10*3/uL [place] # (Auto) (0.1-1.2) X10*3/uL Eos # (Auto) (0.0-0.4) X10*3/uL Baso # (Auto) (0.0-0.2) X10*3/uL Abs Immat Gran (auto) (0.00-0.03) X10*3/uL Absolute Neuts (auto) (2.0-8.3) x10*3/uL Absolute Nucleated RBC (0.0-0.012) X10*3/uL Nucleated RBC % (auto) (0.0-0.2) /100WBC PT (10.0-13.1) SEC INR (0.9-1.1) APTT (26.0-36.4) SEC Sodium (135-145) mmol/L Potassium (3.3-5.1) mmol/L Chloride (96-108) mmol/L Carbon Dioxide (22-29) mmol/L Anion Gap (12-20) BUN (9-16) mg/dL Creatinine (0.5-1.4) mg/dL Estim Creat Clear Calc Estimated GFR Random Glucose (60-115) mg/dL Calcium (8.4-10.2) mg/dL Total Bilirubin (0.0-1.0) mg/dL AST (5-37) U/L ALT (0-40) U/L Alkaline Phosphatase (39-117) U/L Total Protein (6.5-8.0) g/dL Albumin (3.5-5.0) g/dL Urine Color Yellow Urine Appearance Clear Urine pH 5.5 (5.0-9.0) Ur Specific [place] 1.025 (1.005-1.025) Urine Protein Negative (Neg-Trace) mg/dL Urine Glucose (UA) Negative (Negative) mg/dL Urine Ketones Trace (Negative) mg/dL Urine Blood Negative (Negative) Urine Nitrite Negative (Negative) Ur Leukocyte Esterase Negative (Negative) Discharge Plan Discharge Clinical Impression: Strain of lumbar paraspinal muscle Patient Disposition: Home, Self-Care Instructions: Low Back Strain (ED) Additional Instructions: Take pain medication muscle relaxant as prescribed Follow-up with PCP Prescriptions: New cyclobenzaprine 10 mg tablet 10 mg PO Q8H Qty: 20 0RF oxycodone 5 mg tablet 5 mg PO Q6H PRN (Reason: pain) Qty: 20 0RF Rx Instructions: Partial Fill upon patient request. No Action (DME) miscellaneous medical supply Misc See Rx Instructions .ROUTE .MEDSUPPLY Qty: 1 0RF Rx Instructions: mattress topper pravastatin 80 mg tablet 80 mg PO DAILY Qty: 90 3RF cholecalciferol (vitamin D3) 50 mcg (2,000 unit) capsule 50 mcg PO DAILY Qty: 90 3RF bismuth subsalicylate 262 mg Tablet 2 tab PO QID mirtazapine 45 mg tablet 45 mg PO BEDTIME aripiprazole [Abilify] 2 mg tablet 2 mg PO DAILY zolpidem [Ambien] 10 mg tablet 10 mg PO BEDTIME PRN (Reason: Insomnia) aspirin 81 mg tablet,delayed release (DR/EC) 81 mg PO DAILY senna 8.6 mg capsule 17.2 mg PO BEDTIME 30 Days Qty: 60 6RF pantoprazole 40 mg tablet,delayed release (DR/EC) 40 mg PO BID Qty: 60 6RF tadalafil [Cialis] 5 mg tablet 5 mg PO DAILY 90 Days Qty: 90 0RF Rx Instructions: [facility] [id number] Print Language: Swazi
== END 2022-05-08 21:12 | disposition home or self-care (01) ==
PROVIDERS: Physician Assistant; Emergency Provider Internal Medicine; PCP Internal Medicine
DX: M54.50 Low back pain, unspecified (principal); R10.9 Unspecified abdominal pain; F17.210 Nicotine dependence, cigarettes, uncomplicated; Z71.6 Tobacco abuse counseling; Z79.899 Other long term (current) drug therapy
CPT/HCPCS: 36415; 74176; 80053; 81003; 85025; 85610; 85730; 99282; 99283

== ENCOUNTER → 2022-05-10 14:38 | Outpatient (BNVA) | payer OTHER, SELFPAY | PROVIDERS: PCP Internal Medicine; Visit Provider Nurse Practitioner Family | DX: G47.30 Sleep apnea, unspecified (principal); G47.9 Sleep disorder, unspecified | CPT/HCPCS: 99202 ==

== ENCOUNTER → 2022-05-18 12:16 | Outpatient (BNVA) | payer OTHER, SELFPAY | PROVIDERS: PCP Internal Medicine; Visit Provider Nurse Practitioner | DX: K21.9 Gastro-esophageal reflux disease without esophagitis (principal); K59.04 Chronic idiopathic constipation | CPT/HCPCS: 99212 ==

== ENCOUNTER 2022-05-31 11:15 | Outpatient (REF) | payer OTHER, SELFPAY ==
[2022-06-05 17:09] LABS: Testosterone, Free 63.9 pg/mL (35.0-155.0); Testosterone, Total 450 ng/dL (250-1100)
== END 2022-05-31 11:16 | disposition home or self-care (01) ==
LOC: HO.LAB 11:15
PROVIDERS: PCP Internal Medicine; Visit Provider Nurse Practitioner Family
DX: N52.9 Male erectile dysfunction, unspecified (principal)
CPT/HCPCS: 36415; 84402; 84403

== ENCOUNTER 2022-06-09 12:48 | Day surgery (SDC) | payer OTHER, SELFPAY ==
[2022-06-07 10:31] VITALS: BMI 26.6
--- NOTE | 2022-06-08 14:22 | HO.ANESPROP2 ---
HPI - Anesthesia Eval Consult details Narrative: 56yo M for Upper Endoscopy [facility] Active Problems Active Problems: All Active Problems (Updated 05/10/22 @ 15:42 by Keagan Marte CNP) Sleep difficulties (Acute) Erectile dysfunction (Acute) Anxiety (Acute) Chronic idiopathic constipation (Acute) Annual physical exam (Acute) Sleep apnea (Acute) Hypogonadism, testicular (Acute) H. pylori infection (Acute) Polycythemia (Chronic) Tobacco dependence (Acute) GERD (gastroesophageal reflux disease) (Acute) Right knee pain (Acute) Scoliosis (Acute) Depression (Acute) Hyperlipidemia (Acute) Erectile dysfunction (Acute) Past Medical History Medical History Annual physical exam Anxiety Carotid artery aneurysm Depression Dextroscoliosis Erectile dysfunction GERD (gastroesophageal reflux disease) Hyperlipidemia Primary hypogonadism in male Right knee pain Schizophrenia Scoliosis Sleep apnea Spondylosis Tobacco dependence Family History Family History Father No problems noted. Mother Breast cancer Brother Mental health disorder PTSD (post-traumatic stress disorder) Surgical History Surgical History H/O colonoscopy History of esophagogastroduodenoscopy (EGD) History of surgery on arm Social History Social History Household Members: Family Housing: Apartment Are you a primary early breastfeeding care specialist to a significant other at home: No Do you presently have visiting nurse or other home services: Yes Alcohol intake: current Alcohol intake frequency: does not drink Patient Tobacco Use Status: Current everyday Tobacco user Tobacco use type: Cigarette Cigarettes Per Day: 5 e-Cigarette/Vaping Use: Never Used Second Hand Smoke Exposure: No Advance Directives Date on File: 11/20/19 service: No Current occupational status: unemployed Current occupational exposures/hazards: No Cognitive needs: No Hearing needs: No Vision needs: Yes Meds Allergies Allergy/AdvReac Type Severity Reaction Status Date / Time No Known Allergies Allergy Verified 06/10/22 10:58 [No Known Allergies*] Home Medications Medication Instructions Recorded Confirmed Last Taken Type aripiprazole 2 mg tablet (Abilify) 2 mg PO DAILY 12/24/19 06/10/22 Unknown History mirtazapine 45 mg tablet 45 mg PO BEDTIME 12/24/19 06/10/22 Unknown History zolpidem 10 mg tablet (Ambien) 10 mg PO BEDTIME PRN Insomnia 12/24/19 06/10/22 Unknown History aspirin 81 mg tablet,delayed 81 mg PO DAILY 03/25/21 06/10/22 06/02/22 History release bismuth subsalicylate 262 mg tablet 2 tab PO QID 05/13/21 06/10/22 Unknown History peg [id number] 1 0 drp ophthalmic (eye) 05/18/22 06/10/22 Unknown History %-0.2 %-0.2 % eye drops (Artificial Tears ([id number])) Exam Exam Date and Time: June 08, 2022 1422 Height,Weight and Vital Signs: Height 5 ft 6 in Weight 74.984 kg Pertinent Lab Results Pertinent Lab Results: Laboratory Tests 05/08/22 14:19 Sodium 141 Potassium 5.0 Chloride 104 Carbon Dioxide 28 BUN 11 Creatinine 1.11 Assessment and Plan Assessment Anesthesia Assessment: Chart Reviewed
[2022-06-09 12:58] VITALS: BP 125/73; PULSE 96; RESP 20; TEMP 36.8; O2SAT 96
[2022-06-09] MEDS: Lactated Ringers 1,000 ML 100 ML IVCONT (13:21)
--- NOTE | 2022-06-09 13:24 | P.CONAN_ITS ---
[facility] Active Problems Active Problems: All Active Problems (Updated 05/10/22 @ 15:42 by Keagan Mrate CNP) Sleep difficulties (Acute) Erectile dysfunction (Acute) Anxiety (Acute) Chronic idiopathic constipation (Acute) Annual physical exam (Acute) Sleep apnea (Acute) Hypogonadism, testicular (Acute) H. pylori infection (Acute) Polycythemia (Chronic) Tobacco dependence (Acute) GERD (gastroesophageal reflux disease) (Acute) Right knee pain (Acute) Scoliosis (Acute) Depression (Acute) Hyperlipidemia (Acute) Erectile dysfunction (Acute) Past Medical History Medical History Annual physical exam Anxiety Carotid artery aneurysm Depression Dextroscoliosis Erectile dysfunction GERD (gastroesophageal reflux disease) Hyperlipidemia Primary hypogonadism in male Right knee pain Schizophrenia Scoliosis Sleep apnea Spondylosis Tobacco dependence Family History Family History Father No problems noted. Mother Breast cancer Brother Mental health disorder PTSD (post-traumatic stress disorder) Surgical History Surgical History H/O colonoscopy History of esophagogastroduodenoscopy (EGD) History of surgery on arm Social History Social History Household Members: Family Housing: Apartment Are you a primary animal daycare provider to a significant other at home: No Do you presently have visiting nurse or other home services: Yes Alcohol intake: current Alcohol intake frequency: does not drink Patient Tobacco Use Status: Current everyday Tobacco user Tobacco use type: Cigarette Cigarettes Per Day: 5 e-Cigarette/Vaping Use: Never Used Second Hand Smoke Exposure: No Are you DNR?: No Advance Directives: Yes Advance Directives on File: Yes Advance Directives Date on File: 11/20/19 service: No Current occupational status: unemployed Current occupational exposures/hazards: No Cognitive needs: No Hearing needs: No Vision needs: Yes Meds Allergies Allergy/AdvReac Type Severity Reaction Status Date / Time No Known Allergies Allergy Verified 05/18/22 12:22 [No Known Allergies*] Active Medications: Current Medications Lactated Ringer's (Lr) 1,000 mls @ 100 mls/hr IVCONT .Q10H [place] Last Admin: 06/09/22 13:21 Dose: 100 mls/hr Home Medications Medication Instructions Recorded Confirmed Last Taken Type aripiprazole 2 mg tablet (Abilify) 2 mg PO DAILY 12/24/19 04/25/22 Unknown History mirtazapine 45 mg tablet 45 mg PO BEDTIME 12/24/19 04/25/22 Unknown History zolpidem 10 mg tablet (Ambien) 10 mg PO BEDTIME PRN Insomnia 12/24/19 04/25/22 Unknown History aspirin 81 mg tablet,delayed 81 mg PO DAILY 03/25/21 04/25/22 06/02/22 History release bismuth subsalicylate 262 mg tablet 2 tab PO QID 05/13/21 04/25/22 Unknown History peg [id number] 1 0 drp ophthalmic (eye) 05/18/22 Unknown History %-0.2 %-0.2 % eye drops (Artificial Tears ([id number])) Exam Exam Date and Time: June 09, 2022 1324 Height,Weight and Vital Signs: Height 5 ft 6 in Weight 74.984 kg Last Vital Signs Temp 98.3 F 06/09/22 12:58 Pulse 96 06/09/22 12:58 Resp 20 06/09/22 12:58 BP 125/73 06/09/22 12:58 Pulse Ox 96 06/09/22 12:58 O2 Del Method Room Air 06/09/22 12:58 Airway Mallampati Class: III (n) TM Dist: >3cm Neck ROM: Full Heart: RRR Lungs: CTA Assessment and Plan Final Anesthetic Review ASA Class: III Final Preanesthetic Review: Meds/Allgs Chart Reviewed, Consent Obtained/Reviewed and Anes Risks/Benef Reviewed Patient Risk: Intermediate Procedure Risk: Low Anesthetic Plan Anesthetic Plan: MAC: Disposition: Standard PACU
--- NOTE | 2022-06-09 13:28 | P.HPSUR_ITS ---
Pre-Procedural Eval Section A Date of Service: 06/09/22 Section B Chief Complaint: Gastro-esophageal reflux disease without esophagit Relevant Family History (Specify if Yes): No Relevant Social History: Tobacco Use Present Medications: see Short Stay Collaborative assessment Medical History: Significant History (Anxiety Carotid artery aneurysm Depression Dextroscoliosis Erectile dysfunction GERD (gastroesophageal reflux disease) Hyperlipidemia Primary hypogonadism in male Right knee pain Schizophrenia Scoliosis Sleep apnea Spondylosis Tobacco dependence) History of Previous Operations: Relevant previous surgery/procedure and date(s) (egd,colonoscopy) Allergies: Allergies Allergy/AdvReac Type Severity Reaction Status Date / Time No Known Allergies Allergy Verified 05/18/22 12:22 [No Known Allergies*] Review of Systems Sugical H&P ROS: Negative: Constitution, Cardiovascular, Respiratory, Neurological, Psychiatric, Hem-Onc, Allergic/Immunologic, Gastrointestinal, Genitourinary, Musculoskeletal, Integumentary, Endocrine and Eyes/Ears/Nose/T hroat Exam Surgical H&P Exam: Normal: HEENT, Normal: Heart, Normal: Lungs, Normal: Extremities, Normal: Abdomen, Normal: Skin and Normal: Neurological Plan Diagnosis/Plan: Unchanged I have reviewed the history and physical and performed a pertinent physical examination on my patient. No changes have occurred unless specified. Time Spent With Patient Time: Total time managing care of this patient today ____ minutes.
--- NOTE | 2022-06-09 13:49 | HO.ANESPROP2 ---
[facility] Active Problems Active Problems: All Active Problems (Updated 05/10/22 @ 15:42 by Keagan Marte CNP) Sleep difficulties (Acute) Erectile dysfunction (Acute) Anxiety (Acute) Chronic idiopathic constipation (Acute) Annual physical exam (Acute) Sleep apnea (Acute) Hypogonadism, testicular (Acute) H. pylori infection (Acute) Polycythemia (Chronic) Tobacco dependence (Acute) GERD (gastroesophageal reflux disease) (Acute) Right knee pain (Acute) Scoliosis (Acute) Depression (Acute) Hyperlipidemia (Acute) Erectile dysfunction (Acute) Past Medical History Medical History Annual physical exam Anxiety Carotid artery aneurysm Depression Dextroscoliosis Erectile dysfunction GERD (gastroesophageal reflux disease) Hyperlipidemia Primary hypogonadism in male Right knee pain Schizophrenia Scoliosis Sleep apnea Spondylosis Tobacco dependence Family History Family History Father No problems noted. Mother Breast cancer Brother Mental health disorder PTSD (post-traumatic stress disorder) Surgical History Surgical History H/O colonoscopy History of esophagogastroduodenoscopy (EGD) History of surgery on arm Social History Social History Household Members: Family Housing: Apartment Are you a primary youth career specialist to a significant other at home: No Do you presently have visiting nurse or other home services: Yes Alcohol intake: current Alcohol intake frequency: does not drink Patient Tobacco Use Status: Current everyday Tobacco user Tobacco use type: Cigarette Cigarettes Per Day: 5 e-Cigarette/Vaping Use: Never Used Second Hand Smoke Exposure: No Are you DNR?: No Advance Directives: Yes Advance Directives on File: Yes Advance Directives Date on File: 11/20/19 service: No Current occupational status: unemployed Current occupational exposures/hazards: No Cognitive needs: No Hearing needs: No Vision needs: Yes Meds Allergies Allergy/AdvReac Type Severity Reaction Status Date / Time No Known Allergies Allergy Verified 05/18/22 12:22 [No Known Allergies*] Active Medications: Current Medications Lactated Ringer's (Lr) 1,000 mls @ 100 mls/hr IVCONT .Q10H [place] Last Admin: 06/09/22 13:21 Dose: 100 mls/hr Home Medications Medication Instructions Recorded Confirmed Last Taken Type aripiprazole 2 mg tablet (Abilify) 2 mg PO DAILY 12/24/19 04/25/22 Unknown History mirtazapine 45 mg tablet 45 mg PO BEDTIME 12/24/19 04/25/22 Unknown History zolpidem 10 mg tablet (Ambien) 10 mg PO BEDTIME PRN Insomnia 12/24/19 04/25/22 Unknown History aspirin 81 mg tablet,delayed 81 mg PO DAILY 03/25/21 04/25/22 06/02/22 History release bismuth subsalicylate 262 mg tablet 2 tab PO QID 05/13/21 04/25/22 Unknown History peg [id number] 1 0 drp ophthalmic (eye) 05/18/22 Unknown History %-0.2 %-0.2 % eye drops (Artificial Tears ([id number])) Exam Exam Date and Time: June 09, 2022 1349 Height,Weight and Vital Signs: Height 5 ft 6 in Weight 74.984 kg Last Vital Signs Temp 98.3 F 06/09/22 12:58 Pulse 96 06/09/22 12:58 Resp 20 06/09/22 12:58 BP 125/73 06/09/22 12:58 Pulse Ox 96 06/09/22 12:58 O2 Del Method Room Air 06/09/22 12:58 Airway Mallampati Class: II TM Dist: >3cm Neck ROM: Full Heart: RRR Lungs: CTA Assessment and Plan Final Anesthetic Review ASA Class: II Final Preanesthetic Review: Meds/Allgs Chart Reviewed, Consent Obtained/Reviewed and Anes Risks/Benef Reviewed Patient Risk: Low Procedure Risk: Low Anesthetic Plan Anesthetic Plan: MAC: Disposition: Standard PACU
--- NOTE | 2022-06-09 14:04 | W.PM.OPN ---
Operative Note Operative Note Date of Service: 06/09/22 Narrative: Procedure Description: EGD Indication: GERD Anesthesia: MAC FLEXIBLE TRANSORAL UPPER GASTROINTESTINAL ENDOSCOPY UPPER ENDOSCOPY Consent: Indications for the procedure and potential complications of bleeding, perforation, reaction to medications and missed diagnosis were discussed with the patient and informed consent was obtained. Instrument: Olympus GIF H 190 J mid size upper endoscope Monitoring: Vital signs and clinical assessment, continuous EKG monitoring, Pulse oximetry, Carbon Dioxide monitoring and blood pressure monitoring were done throughout the procedure. Procedure: The patient was placed in the left lateral decubitis position and pre-procedure medications were administered and a bite block was placed. The endoscope was inserted into the mouth and advanced under direct vision to the third part of duodenum. A careful inspection was made as the upper endoscope was withdrawn including a retroflexed examination of the proximal stomach; Findings and interventions are described below. Findings: Larynx:normal Esophagus: GE junction at 37 cm, diaphragm hiatus at 39 cm, consistent with 2 cm sliding hiatal hernia. Non obstructive schatzki ring noted with LA grade A erosive esophagitis and possible short segment Barretts with few salmon pink islands of tissue. Bx taken from GEJ, distal and proximal areas. Stomach: Patchy gastric erythema. Biopsies were obtained. Grade 2 flap valve on retroflexed examination of the cardia. Duodenum: bulbar duodenitis with few small erosions seen, bx taken Intervention: Biopsies as noted above Impression/Findings: hiatal hernia schatzki ring erosive esophagitis possible barretts gastritis duodenitis PLAN: await path if H pylori pos then treat smoking cessation ensure compliance with PPI-might need to change the PPI if he has been taking
[2022-06-09 14:10] VITALS: BP 103/61; PULSE 77; RESP 16; TEMP 36.2; O2SAT 96
--- NOTE | 2022-06-09 14:12 | HO.POSTANES ---
Post Anesthesia Evaluation Post Anesthesia Evaluation Vital Signs: Vital Signs Temp Pulse Resp BP Pulse Ox O2 Del Method 06/09/22 12:58 98.3 F 96 20 125/73 96 Room Air Anesthesia: Monitored Mental Status: Awake Pain Control: Satisfactory Nausea/Vomiting: None and Severe Hydration: Adequate Anesthesia-Related Issues: No Anes. Related Issues
[2022-06-09 14:26] VITALS: BP 112/71; PULSE 75; RESP 20; TEMP 36.9; O2SAT 96
== END 2022-06-09 15:23 | disposition home or self-care (01) ==
PROVIDERS: PCP Internal Medicine; Visit Provider Internal Medicine Gastroenterology
PROC: 0DJ08ZZ Inspection of Upper Intestinal Tract, Via Natural or Artificial Opening Endoscopic (ICD-10-PCS; CPT 43235; principal; 2022-06-09 15:00)
DX: K21.9 Gastro-esophageal reflux disease without esophagitis (principal); K22.2 Esophageal obstruction; K29.50 Unspecified chronic gastritis without bleeding; B96.81 Helicobacter pylori [H. pylori] as the cause of diseases classified elsewhere; K29.80 Duodenitis without bleeding; K20.80 Other esophagitis without bleeding; K44.9 Diaphragmatic hernia without obstruction or gangrene; I72.0 Aneurysm of carotid artery; E78.5 Hyperlipidemia, unspecified; G47.30 Sleep apnea, unspecified; N52.9 Male erectile dysfunction, unspecified; F32.A Depression, unspecified; F41.1 Generalized anxiety disorder; F20.9 Schizophrenia, unspecified; Z79.899 Other long term (current) drug therapy; Z79.82 Long term (current) use of aspirin; F17.210 Nicotine dependence, cigarettes, uncomplicated
CPT/HCPCS: 43239; 88305; 88342

== ENCOUNTER → 2022-06-10 10:21 | Outpatient (BNVA) | payer OTHER, SELFPAY | PROVIDERS: PCP Internal Medicine; Visit Provider Nurse Practitioner Family | DX: N52.9 Male erectile dysfunction, unspecified (principal) | CPT/HCPCS: 99212 ==

== ENCOUNTER → 2022-07-06 15:04 | Outpatient (BNVA) | payer OTHER, SELFPAY | PROVIDERS: PCP Internal Medicine; Visit Provider Nurse Practitioner | DX: K27.9 Peptic ulcer, site unspecified, unspecified as acute or chronic, without hemorrhage or perforation (principal); B96.81 Helicobacter pylori [H. pylori] as the cause of diseases classified elsewhere; K59.04 Chronic idiopathic constipation; K21.9 Gastro-esophageal reflux disease without esophagitis | CPT/HCPCS: 99212 ==

== ENCOUNTER 2022-07-23 17:19 | Emergency (ER) | payer OTHER, SELFPAY ==
--- NOTE | 2022-07-23 17:35 | ED_ITS ---
HPI - Abdominal Pain General Stated Complaint: constipated x4 days Related Data Home Medications Medication Instructions Recorded Confirmed aripiprazole 2 mg tablet (Abilify) 2 mg PO DAILY 12/24/19 06/10/22 mirtazapine 45 mg tablet 45 mg PO BEDTIME 12/24/19 06/10/22 zolpidem 10 mg tablet (Ambien) 10 mg PO BEDTIME PRN Insomnia 12/24/19 06/10/22 aspirin 81 mg tablet,delayed 81 mg PO DAILY 03/25/21 06/10/22 release peg [id number] 1 0 drp ophthalmic (eye) 05/18/22 06/10/22 %-0.2 %-0.2 % eye drops (Artificial Tears ([id number])) Previous Rx's Medication Instructions Recorded pravastatin 80 mg tablet 80 mg PO DAILY #90 tabs 05/10/21 cholecalciferol (vitamin D3) 50 50 mcg PO DAILY #90 caps 07/08/21 mcg (2,000 unit) capsule sennosides 8.6 mg capsule (senna) 17.2 mg PO BEDTIME constipation 30 07/09/21 days #60 caps cyclobenzaprine 10 mg tablet 10 mg PO Q8H #20 tabs 05/08/22 oxycodone 5 mg tablet 5 mg PO Q6H PRN pain #20 tabs 05/08/22 tadalafil 5 mg tablet (Cialis) 5 mg PO DAILY 90 days #90 tabs 06/10/22 bismuth subsalicylate 262 mg 2 tab PO QID 14 days #112 tabs 06/17/22 chewable tablet levofloxacin 500 mg tablet 500 mg PO DAILY #14 tabs 06/17/22 metronidazole 500 mg tablet 500 mg PO TID 14 days #42 tabs 06/17/22 pantoprazole 40 mg tablet,delayed 40 mg PO BID #60 tabs 06/17/22 release Allergies Allergy/AdvReac Type Severity Reaction Status Date / Time No Known Allergies Allergy Verified 07/06/22 15:10 [No Known Allergies*] [facility] Past Medical History Medical History (Updated 07/06/22 @ 15:58 by MESHA Reyna) Annual physical exam Anxiety Carotid artery aneurysm Depression Dextroscoliosis Erectile dysfunction GERD (gastroesophageal reflux disease) Hyperlipidemia Primary hypogonadism in male Right knee pain Schizophrenia Scoliosis Sleep apnea Spondylosis Tobacco dependence Surgical History (Updated 06/15/22 @ 14:43 by Lizz Landon) H/O colonoscopy History of esophagogastroduodenoscopy (EGD) History of surgery on arm Family History Family History Father No problems noted. Mother Breast cancer Brother Mental health disorder PTSD (post-traumatic stress disorder) Social History Social History Household Members: Family Housing: Apartment Are you a primary healthcare or medical to a significant other at home: No Do you presently have visiting nurse or other home services: Yes Alcohol intake: current Alcohol intake frequency: does not drink Patient Tobacco Use Status: Current everyday Tobacco user Tobacco use type: Cigarette Cigarettes Per Day: 5 e-Cigarette/Vaping Use: Never Used Second Hand Smoke Exposure: No Advance Directives Date on File: 11/20/19 service: No Current occupational status: unemployed Current occupational exposures/hazards: No Cognitive needs: No Hearing needs: No Vision needs: Yes Course Course Course Narrative: RME- 56 yo Sinhala speaking male with history of chronic idiopathic constipation with recent diagnosis of H. pylori started on abx who presents to the ER for evaluation of constipation x3 days. No N/V. Tried rectal suppository and enema without relief. has not tried any PO laxatives or stool softners. passing a lot of gas. complaining of anal pain. abd with decreased but present bowel sounds, soft. Plan: basic labs, rectal exam. hold off on imaging for now Discharge Plan Discharge Prescriptions: No Action pravastatin 80 mg tablet 80 mg PO DAILY Qty: 90 3RF cholecalciferol (vitamin D3) 50 mcg (2,000 unit) capsule 50 mcg PO DAILY Qty: 90 3RF levofloxacin 500 mg tablet 500 mg PO DAILY Qty: 14 0RF metronidazole 500 mg tablet 500 mg PO TID 14 Days Qty: 42 0RF pantoprazole 40 mg tablet,delayed release (DR/EC) 40 mg PO BID Qty: 60 6RF bismuth subsalicylate 262 mg tablet,chewable 2 tab PO QID 14 Days Qty: 112 0RF cyclobenzaprine 10 mg tablet 10 mg PO Q8H Qty: 20 0RF oxycodone 5 mg tablet 5 mg PO Q6H PRN (Reason: pain) Qty: 20 0RF Rx Instructions: Partial Fill upon patient request. mirtazapine 45 mg tablet 45 mg PO BEDTIME aripiprazole [Abilify] 2 mg tablet 2 mg PO DAILY zolpidem [Ambien] 10 mg tablet 10 mg PO BEDTIME PRN (Reason: Insomnia) aspirin 81 mg tablet,delayed release (DR/EC) 81 mg PO DAILY tadalafil [Cialis] 5 mg tablet 5 mg PO DAILY 90 Days Qty: 90 3RF Rx Instructions: [employer] [employer] [facility] DR33 [id number] Artificial Tears([id number]) 1-0.2-0.2 % drops 0 drp ophthalmic (eye) senna 8.6 mg capsule 17.2 mg PO BEDTIME 30 Days Qty: 60 6RF
[2022-07-23 17:37] VITALS: BP 123/71; PULSE 92; RESP 18; TEMP 36.5; O2SAT 97; BMI 27.0
[2022-07-23 17:49] LABS: MANUAL DIFF FLAG NO
[2022-07-23 18:08] LABS: Alanine Aminotransferase 17 U/L (0-40); Alkaline Phosphatase 65 U/L (39-117); Anion Gap 11 (12-20); Aspartate Amino Transferase 17 U/L (5-37); Bilirubin Direct 0.1 mg/dL (0.0-0.5); Bilirubin Total 0.5 mg/dL (0.0-1.0); Blood Urea Nitrogen 15 mg/dL (9-16); Calcium 9.1 mg/dL (8.4-10.2); Carbon Dioxide 22 mmol/L (22-29); Chloride 109 mmol/L (96-108); Creatinine Clr Calc Pharmacy 82.5; Estimated Glomerular Filt Rate > 60; Glucose Random 96 mg/dL (60-115); Magnesium 2.2 mg/dL (1.6-2.6); Potassium 4.1 mmol/L (3.3-5.1); Sodium 138 mmol/L (135-145); Total Protein 7.1 g/dL (6.5-8.0)
[2022-07-23 18:17] LABS: Basophils Absolute Auto 0.1 X10*3/uL (0.0-0.2); Basophils Percent Auto 0.6 % (0-2); Eosinophils Absolute Auto 0.3 X10*3/uL (0.0-0.4); Eosinophils Percent Auto 2.9 % (0-4); Hematocrit 49.6 % (42.0-52.0); Hemoglobin 16.9 g/dl (14.0-18.0); Imm Gran Abs Auto 0.03 X10*3/uL (0.00-0.03); Imm Gran Pct Auto 0.3 % (0.0-0.4); Lymphocytes Absolute Auto 2.5 X10*3/uL (1.2-4.9); Lymphocytes Percent Auto 26.5 % (20-40); Mean Corpuscular HGB Conc 34.1 g/dl (31.0-36.0); Mean Corpuscular Volume 87.9 fL (80.0-98.0); Mean Platelet Volume 10.3 fL (9.4-12.4); Monocytes Absolute Auto 0.7 X10*3/uL (0.1-1.2); Monocytes Percent Auto 6.8 % (2-11); Neutrophils Percent Auto 62.9 % (45-73); Platelet Count 283 X10*3/uL (160-400); Red Blood Count 5.64 X10*6/uL (4.60-5.80); White Blood Count 9.5 X10*3/uL (4.8-10.8)
[2022-07-23 20:58] VITALS: BP 98/53; PULSE 88; RESP 18; TEMP 36.3; O2SAT 95
--- NOTE | 2022-07-23 21:56 | ED.GENADULT ---
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 Patient normally can go to the bathroom daily for bowel movement, did not have a bowel movement for the past 5 days, patient just had the triple therapy for H pylori gastritis thinking that is what caused his symptoms. No abdominal pain, patient is trying to force his bowel movement noted blood on a toilet paper but no le bleeding from the rectum, no nausea, no vomiting, able to pass flatus. Related Data Home Medications Medication Instructions Recorded Confirmed aripiprazole 2 mg tablet (Abilify) 2 mg PO DAILY 12/24/19 06/10/22 mirtazapine 45 mg tablet 45 mg PO BEDTIME 12/24/19 06/10/22 zolpidem 10 mg tablet (Ambien) 10 mg PO BEDTIME PRN Insomnia 12/24/19 06/10/22 aspirin 81 mg tablet,delayed 81 mg PO DAILY 03/25/21 06/10/22 release peg [id number] 1 0 drp ophthalmic (eye) 05/18/22 06/10/22 %-0.2 %-0.2 % eye drops (Artificial Tears ([id number])) Previous Rx's Medication Instructions Recorded pravastatin 80 mg tablet 80 mg PO DAILY #90 tabs 05/10/21 cholecalciferol (vitamin D3) 50 50 mcg PO DAILY #90 caps 07/08/21 mcg (2,000 unit) capsule sennosides 8.6 mg capsule (senna) 17.2 mg PO BEDTIME constipation 30 07/09/21 days #60 caps cyclobenzaprine 10 mg tablet 10 mg PO Q8H #20 tabs 05/08/22 oxycodone 5 mg tablet 5 mg PO Q6H PRN pain #20 tabs 05/08/22 tadalafil 5 mg tablet (Cialis) 5 mg PO DAILY 90 days #90 tabs 06/10/22 bismuth subsalicylate 262 mg 2 tab PO QID 14 days #112 tabs 06/17/22 chewable tablet levofloxacin 500 mg tablet 500 mg PO DAILY #14 tabs 06/17/22 metronidazole 500 mg tablet 500 mg PO TID 14 days #42 tabs 06/17/22 pantoprazole 40 mg tablet,delayed 40 mg PO BID #60 tabs 06/17/22 release Allergies Allergy/AdvReac Type Severity Reaction Status Date / Time No Known Allergies Allergy Verified 07/06/22 15:10 [No Known Allergies*] Review of Systems Review of Systems: All other systems are reviewed and are negative Constitutional: Reports as per HPI and Reports no additional constitutional complaints Eyes: Reports as per HPI and Reports no additional eye complaints Reports system reviewed and no additional complaints, except as documented Cardiovascular: Reports as per HPI and Reports no additional cardiovascular complaints Respiratory: Reports as per HPI and Reports no additional respiratory complaints Gastrointestinal: Reports as per HPI and Reports no additional gastrointestinal complaints Genitourinary: Reports no additional female genitourinary complaints Musculoskeletal: Reports no additional musculoskeletal complaints Skin/Breast: Reports system reviewed and no additional complaints, except as docu Psychiatric: Reports no additional psychiatric complaints Endocrine: Reports no additional endocrine complaints Hematologic/Lymphatic: Reports no additional hematologic/lymphatic complaints Allergic/Immunologic: Reports no additional allergic/immunologic complaints Reports system reviewed and no additional complaints, except as documented and Reports Abnormal speech present [facility] Past Medical History Medical History Annual physical exam Anxiety Carotid artery aneurysm Depression Dextroscoliosis Erectile dysfunction GERD (gastroesophageal reflux disease) Hyperlipidemia Primary hypogonadism in male Right knee pain Schizophrenia Scoliosis Sleep apnea Spondylosis Tobacco dependence Surgical History H/O colonoscopy History of esophagogastroduodenoscopy (EGD) History of surgery on arm Family History Family History Father No problems noted. Mother Breast cancer Brother Mental health disorder PTSD (post-traumatic stress disorder) Social History Social History Household Members: Family Housing: Apartment Are you a primary intensive care anaesthetist to a significant other at home: No Do you presently have visiting nurse or other home services: Yes Alcohol intake: current Alcohol intake frequency: does not drink Patient Tobacco Use Status: Current everyday Tobacco user Tobacco use type: Cigarette Cigarettes Per Day: 5 e-Cigarette/Vaping Use: Never Used Second Hand Smoke Exposure: No Advance Directives: Yes Advance Directives on File: Yes Advance Directives Date on File: 11/20/19 service: No Current occupational status: unemployed Current occupational exposures/hazards: No Cognitive needs: No Hearing needs: No Vision needs: Yes Physical Exam ED Vital Signs: Vital Signs - 24 hr 07/23/22 17:37 07/23/22 20:58 07/23/22 22:12 Temperature 97.7 F 97.3 F 97.6 F Pulse Rate 92 88 75 Respiratory Rate 18 18 18 Blood Pressure 123/71 98/53 L 118/72 Pulse Oximetry 97 95 96 Oxygen Delivery Method Room Air Room Air Room Air BMI result Body Mass Index 27.0 Vital signs have been reviewed as appeared to be correct. Blood pressure normal. Heart rate normal. Respiration rate normal. Temperature normal. Oxygen saturation normal. Appearance: Alert. Oriented X3. No acute distress. Head: Normal external exam. Normocephalic. Atraumatic. No Pham signs noted. No raccoon eyes noted Eyes: PERRLA. EOMI. Conjunctiva and sclera normal. Eyelids normal. ENT: TM's Normal. Pharynx normal. Uvula midline. Moist mucous membranes. No trismus noted. No drooling noted. No muffled voice noted. Neck: Normal inspection. Neck supple. FROM. No adenopathy. Thyroid Normal. No meningeal signs. No neck mass noted. CVS: Normal heart rate and rhythm. Heart sound normal. No murmurs noted. Pulses normal throughout. Respiratory: No respiratory distress. Painless inspiration. Breath sounds normal. No wheezes/rales/rhonchi noted. Chest nontender. No accessory muscle usage noted or decreased air movement noted. Abdomen: Soft and nontender. Bowel sounds normal in all 4 quadrants. No distention noted. No organomegaly noted. No visible injury noted. Rectal exam: Hard stool in the vault, no active bleeding, guaiac negative. Back: No CVA tenderness. Full range of motion noted. Skin: Skin warm and dry. Normal skin color. Normal skin turgor. No rashes/lesions/lacerations noted. Extremities: No lower extremity edema. Extremities exhibit normal range of motion. Extremities nontender. Neuro: Oriented X 3. Cranial nerve exam: II-XII are grossly intact No motor deficit. No sensory deficit. Reflexes normal. Course Course Course Narrative: Constipation for 5 days, benign abdominal exam, unremarkable labs, patient is able to have bowel movement after rectal examination and drinking milk of magnesia in the emergency department, patient was instructed to drink plenty of fluids and use [id number]-[id number]-qesayeo MiraLax if needed for constipation. No indication for CT of the abdomen and pelvis since no tenderness, no history of surgery, no nausea or vomiting. Medications Administered Discontinued Medications Generic Name Dose Route Start Last Admin Trade Name Freq PRN Reason Stop Dose Admin Magnesium Hydroxide 30 ml 07/23/22 21:32 07/23/22 22:07 Milk Of Magnesia 30 Ml Oral.Susp PO 07/23/22 21:33 30 ml ONCE ONE Administration Medical Decision Making Differential Diagnosis Differential Diagnoses: The differential diagnosis associated with the presentation includes (Electrolyte abnormalities, severe anemia, constipation, SBO, rectal bleeding.) Admission/Observation Consideration of admission/observation: Escalation of care including admission/observation considered Lab Data MDM Lab Attestation statement: I reviewed the patient's lab results. 07/23/22 17:45 07/23/22 17:45 Labs: Lab Results 07/23/22 07/23/22 07/23/22 Range/Units 17:45 17:45 22:31 WBC 9.5 (4.8-10.8) X10*3/uL RBC 5.64 (4.60-5.80) X10*6/uL Hgb 16.9 (14.0-18.0) g/dl Hct 49.6 (42.0-52.0) % MCV 87.9 (80.0-98.0) fL MCH 30.0 (27.0-33.0) pg MCHC 34.1 (31.0-36.0) g/dl RDW 14.0 (11.0-16.0) % Plt Count 283 (160-400) X10*3/uL MPV 10.3 (9.4-12.4) fL Immature Gran % (Auto) 0.3 (0.0-0.4) % Neut % (Auto) 62.9 (45-73) % Lymph % (Auto) 26.5 (20-40) % [place] % (Auto) 6.8 (2-11) % Eos % (Auto) 2.9 (0-4) % Baso % (Auto) 0.6 (0-2) % Lymph # (Auto) 2.5 (1.2-4.9) X10*3/uL [place] # (Auto) 0.7 (0.1-1.2) X10*3/uL Eos # (Auto) 0.3 (0.0-0.4) X10*3/uL Baso # (Auto) 0.1 (0.0-0.2) X10*3/uL Abs Immat Gran (auto) 0.03 (0.00-0.03) X10*3/uL Absolute Neuts (auto) 6.0 (2.0-8.3) x10*3/uL Absolute Nucleated RBC 0.000 (0.0-0.012) X10*3/uL Nucleated RBC % (auto) 0.0 (0.0-0.2) /100WBC Sodium 138 (135-145) mmol/L Potassium 4.1 (3.3-5.1) mmol/L Chloride 109 H (96-108) mmol/L Carbon Dioxide 22 (22-29) mmol/L Anion Gap 11 L (12-20) BUN 15 (9-16) mg/dL Creatinine 0.88 (0.5-1.4) mg/dL Estim Creat Clear Calc 82.5 Estimated GFR > 60 Random Glucose 96 (60-115) mg/dL Calcium 9.1 (8.4-10.2) mg/dL Magnesium 2.2 (1.6-2.6) mg/dL Total Bilirubin 0.5 (0.0-1.0) mg/dL Direct Bilirubin 0.1 (0.0-0.5) mg/dL AST 17 (5-37) U/L ALT 17 (0-40) U/L Alkaline Phosphatase 65 (39-117) U/L Total Protein 7.1 (6.5-8.0) g/dL Albumin 4.0 (3.5-5.0) g/dL Stool Occult Blood NEGATIVE (NEGATIVE) Social Determinants CT abdomen and pelvis was considered however patient presentation and improvement after having a bowel movement confirming diagnosis of constipation. Discharge Plan Discharge Clinical Impression: Constipation Patient Disposition: Home, Self-Care Instructions: Constipation (ED) Prescriptions: No Action pravastatin 80 mg tablet 80 mg PO DAILY Qty: 90 3RF cholecalciferol (vitamin D3) 50 mcg (2,000 unit) capsule 50 mcg PO DAILY Qty: 90 3RF levofloxacin 500 mg tablet 500 mg PO DAILY Qty: 14 0RF metronidazole 500 mg tablet 500 mg PO TID 14 Days Qty: 42 0RF pantoprazole 40 mg tablet,delayed release (DR/EC) 40 mg PO BID Qty: 60 6RF bismuth subsalicylate 262 mg tablet,chewable 2 tab PO QID 14 Days Qty: 112 0RF cyclobenzaprine 10 mg tablet 10 mg PO Q8H Qty: 20 0RF oxycodone 5 mg tablet 5 mg PO Q6H PRN (Reason: pain) Qty: 20 0RF Rx Instructions: Partial Fill upon patient request. mirtazapine 45 mg tablet 45 mg PO BEDTIME aripiprazole [Abilify] 2 mg tablet 2 mg PO DAILY zolpidem [Ambien] 10 mg tablet 10 mg PO BEDTIME PRN (Reason: Insomnia) aspirin 81 mg tablet,delayed release (DR/EC) 81 mg PO DAILY tadalafil [Cialis] 5 mg tablet 5 mg PO DAILY 90 Days Qty: 90 3RF Rx Instructions: [facility] [employer] [facility] DR33 [id number] Artificial Tears([id number]) 1-0.2-0.2 % drops 0 drp ophthalmic (eye) senna 8.6 mg capsule 17.2 mg PO BEDTIME 30 Days Qty: 60 6RF Referrals: Yaima Collier MD [Primary Care Provider] -
[2022-07-23] MEDS: Milk of Magnesia 30 ML ORAL.SUSP PO (22:07)
--- NOTE | 2022-07-23 22:07 | PC.NURSE ---
pt states he did have bowel movement hard formed.
[2022-07-23 22:12] VITALS: BP 118/72; PULSE 75; RESP 18; TEMP 36.4; O2SAT 96
[2022-07-23 23:09] LABS: OBS Int Ctl Valid YES; OBS1 NEGATIVE (NEGATIVE)
== END 2022-07-23 23:55 | disposition home or self-care (01) ==
PROVIDERS: Physician Assistant; Emergency Provider Emergency Medicine; PCP Internal Medicine
DX: K59.00 Constipation, unspecified (principal); E78.5 Hyperlipidemia, unspecified; F17.210 Nicotine dependence, cigarettes, uncomplicated; Z79.899 Other long term (current) drug therapy; Z79.02 Long term (current) use of antithrombotics/antiplatelets; Z79.82 Long term (current) use of aspirin
CPT/HCPCS: 36415; 80048; 80076; 82272; 83735; 85025; 99283; 99284

== ENCOUNTER → 2022-08-03 10:50 | Outpatient (BNVA) | payer OTHER, SELFPAY | PROVIDERS: Visit Provider Nurse Practitioner | DX: K59.04 Chronic idiopathic constipation (principal); K21.9 Gastro-esophageal reflux disease without esophagitis; K27.9 Peptic ulcer, site unspecified, unspecified as acute or chronic, without hemorrhage or perforation; B96.81 Helicobacter pylori [H. pylori] as the cause of diseases classified elsewhere | CPT/HCPCS: 99212 ==

== ENCOUNTER 2022-08-09 11:10 | Outpatient (AMB) | payer OTHER, SELFPAY ==
--- NOTE | 2022-08-09 11:13 | MHC.OFFVIS ---
Intake Vital Signs 08/09/22 11:17 Weight 166 lb BP 122/66 Blood Pressure Location Lt brachial Position Sitting Pulse 65 Pulse Oximetry (%) 98 Oxygen Delivery Method Room Air Intake Visit Reasons: 3 mo f/u JOSE-Confirmed Intake Note: Follow up for JOSE Seconds Handler Required: Yes Allergies No Known Allergies [No Known Allergies*] Allergy (Verified 08/24/22 09:59) HPI HPI Comments History of Present Illness Details 56 y/o male patient presents for follow up of sleep study. The home sleep study result was significant for moderately severe degree of sleep apnea. The AHI was 17/hr, oxygen jess was 84% and O2 sat below 88% for 1.7 min. Pt started APAP [id number]. The CPAP compliance and therapy response (05/07/22-08/04/22) reviewed. The usage days 59 days and the average usage hours 5 hours 40 min. He sleeps better with CPAP, from 10 pm and 5-5:30 am. His daytime tiredness has improved and has more energy, and able to focus better at work. [facility] Medical History (Updated 08/24/22 @ 10:46 by Yaima Collier MD) Annual physical exam Anxiety Carotid artery aneurysm Depression Dextroscoliosis Erectile dysfunction GERD (gastroesophageal reflux disease) Hyperlipidemia Primary hypogonadism in male Right knee pain Schizophrenia Scoliosis Sleep apnea Spondylosis Tobacco dependence Surgical History H/O colonoscopy History of esophagogastroduodenoscopy (EGD) History of surgery on arm Family History Father No problems noted. Mother Breast cancer Brother Mental health disorder PTSD (post-traumatic stress disorder) Social History (Updated 08/09/22 @ 11:17 by Zaira Corbett CMA) Household Members: Family Housing: Apartment Are you a primary critical care nurse practitioner to a significant other at home: No Do you presently have visiting nurse or other home services: Yes Alcohol intake: current Alcohol intake frequency: does not drink Patient Tobacco Use Status: Current everyday Tobacco user Tobacco use type: Cigarette Cigarettes Per Day: 3 e-Cigarette/Vaping Use: Never Used Second Hand Smoke Exposure: No Advance Directives Date on File: 11/20/19 service: No Current occupational status: unemployed Current occupational exposures/hazards: No Cognitive needs: No Hearing needs: No Vision needs: Yes Review of Systems Const All systems reviewed & are unremarkable except as noted in HPI and below ENT Reports Normal hearing present Neuro Reports Normal hearing present Physical Exam Vital Signs: Last Vital Signs Pulse 65 08/09/22 11:17 BP 122/66 08/09/22 11:17 Pulse Ox 98 08/09/22 11:17 Oxygen Delivery Method Room Air 08/09/22 11:17 Const General: cooperative and tired appearing Nutritional Appearance: average body habitus Orientation/consciousness: patient oriented x3 Limitations: language barrier ([place] speaking only) Neck Neck: Yes full ROM and Yes supple Resp Effort & Inspection: normal respiratory effort and able to speak in complete sentences Neuro General: patient oriented x3, gait normal, moves all extremities and no focal motor deficits Cranial nerves: Yes Bilaterally intact EOM present, Yes Normal facial strength present, Yes Midline tongue present, Yes Symmetric palate elevation present, Yes Normal hearing present, Yes Ability to bilaterally rotate head present and Yes Ability to bilaterally elevate shoulders present Cognition (Neuro): normal cognition Gait exam (Neuro): Normal gait present Motor exam (neuro): 5/5 motor strength present throughout, Pronator motor function not present, no tremor noted and Motor abnormalities not present Psych Appearance: grossly normal Mental Status: mental status grossly normal Speech and movement: Normal speech and movement present Affect: normal affect Attitude: cooperative Assessment & Plan Assessment & Plan (1) Sleep apnea: Comment: Moderately severe degree of sleep apnea. The AHI was 17/hr and oxygen jess was 84% Code(s): G47.30 - Sleep apnea, unspecified Plan Continue to use APAP [id number] as patient experiences good clinical effects. Stressed compliance, use CPAP nightly and more than 4 hours. Continue to practice good sleep hygiene. Coding Level of Care Code Est Pt Level 3 (34434) Diagnoses Sleep apnea G47.30
[2022-08-09 11:17] VITALS: BP 122/66; PULSE 65; O2SAT 98
== END 2022-08-09 11:35 | disposition home or self-care (01) ==
LOC: HO.HSMC 11:10
PROVIDERS: PCP Internal Medicine; Visit Provider Nurse Practitioner Family
DX: G47.30 Sleep apnea, unspecified (principal)
CPT/HCPCS: 99213

== ENCOUNTER → 2022-08-09 11:10 | Outpatient (BNVA) | payer OTHER, SELFPAY | PROVIDERS: PCP Internal Medicine; Visit Provider Nurse Practitioner Family | DX: G47.30 Sleep apnea, unspecified (principal) | CPT/HCPCS: 99212 ==

== ENCOUNTER 2022-08-15 10:52 | Outpatient (REF) | payer OTHER, SELFPAY | END 2022-08-15 10:53 | disposition home or self-care (01) | LOC: HO.HMGCLDS 10:52 | PROVIDERS: PCP Internal Medicine; Visit Provider Internal Medicine | DX: E78.5 Hyperlipidemia, unspecified (principal) | CPT/HCPCS: 36415; 80053; 80061; 83036; 84443 ==

== ENCOUNTER 2022-08-24 09:48 | Outpatient (AMB) | payer OTHER, SELFPAY ==
--- NOTE | 2022-08-24 09:50 | A.OFFPC_ITS ---
Vital Signs 08/24/22 09:54 Height 5 ft 6 in Weight 164 lb BMI 26.5 BP 104/64 Blood Pressure Location Lt brachial Position Sitting Pulse 74 Pulse Source Pulse Oximeter Pulse Oximetry (%) 97 Oxygen Delivery Method Room Air Intake Visit Reasons: 6 month follow up Intake Note: Pt is here today for 6 months follow up visit. Allergies No Known Allergies [No Known Allergies*] Allergy (Verified 08/24/22 09:59) Medication List - Last Reconciled 08/24/22 by Yaima Collier MD aripiprazole (Abilify) 2 mg PO DAILY aspirin 81 mg PO DAILY cholecalciferol (vitamin D3) 50 mcg PO DAILY cyclobenzaprine 10 mg PO .prn mirtazapine 45 mg PO BEDTIME pantoprazole 40 mg PO DAILY pravastatin 80 mg PO DAILY sennosides (senna) 17.2 mg (2 x 8.6 mg) PO BEDTIME 30 days tadalafil (Cialis) 5 mg PO DAILY 90 days zolpidem (Ambien) 10 mg PO BEDTIME PRN Tobacco use date assessed: 08/24/22 Dental Screening Dental Screen Date: 08/24/22 Did you have a dental visit in the last 12 months?: Yes Did you have a dental problem in the last 6 months where you did not have access to dental care?: No Was dental information given to patient?: Patient has dentist HPI 6 month follow up HPI Details Patient presents for the follow-up of hyperlipidemia and chronic GERD stable on current medications. Chronic depression is controlled current medications and patient follows up with psychiatrist. He decreased smoking to 3 cigarettes a day and is up-to-date with annual lung cancer screening CT scan. [facility] Medical History (Updated 08/24/22 @ 10:46 by Yaima Collier MD) Annual physical exam Anxiety Carotid artery aneurysm Depression Dextroscoliosis Erectile dysfunction GERD (gastroesophageal reflux disease) Hyperlipidemia Primary hypogonadism in male Right knee pain Schizophrenia Scoliosis Sleep apnea Spondylosis Tobacco dependence Surgical History H/O colonoscopy History of esophagogastroduodenoscopy (EGD) History of surgery on arm Family History Father No problems noted. Mother Breast cancer Brother Mental health disorder PTSD (post-traumatic stress disorder) Social History (Updated 08/09/22 @ 11:17 by Zaira Corbett CMA) Household Members: Family Housing: Apartment Are you a primary district manager primary care sales to a significant other at home: No Do you presently have visiting nurse or other home services: Yes Alcohol intake: current Alcohol intake frequency: does not drink Patient Tobacco Use Status: Current everyday Tobacco user Tobacco use type: Cigarette Cigarettes Per Day: 3 e-Cigarette/Vaping Use: Never Used Second Hand Smoke Exposure: No Advance Directives Date on File: 11/20/19 service: No Current occupational status: unemployed Current occupational exposures/hazards: No Cognitive needs: No Hearing needs: No Vision needs: Yes Questionnaire Thrive Questionnaire Date Thrive assessed: 02/28/22 WENDY-7 AMB Questionnaire WENDY-7 Date WENDY - 7 assessed: 02/28/22 Source: Developed by Drs. Jatinder Mei, Jennifer Hidalgo, Peter Brooks and colleagues, with an educational desiree from [employer]. Review of Systems Const All systems reviewed & are unremarkable except as noted in HPI and below Reports no additional complaints Eyes Reports no additional complaints ENT Reports no additional complaints Card Reports no additional complaints Resp Reports no additional complaints GI Reports no additional complaints Physical exam (Primary Care) Vital Signs: Last Vital Signs Pulse 74 08/24/22 09:54 BP 104/64 08/24/22 09:54 Pulse Ox 97 08/24/22 09:54 Oxygen Delivery Method Room Air 08/24/22 09:54 BMI result Body Mass Index 26.5 Tobacco/Smoking Status: Tobacco use Status Tobacco use date assessed 08/24/22 08/24/22 10:03 Patient Tobacco Use Status Current everyday Tobacco 08/24/22 09:50 Tobacco use type Cigarette 08/24/22 09:50 e-Cigarette/Vaping Use Never Used 08/24/22 09:50 Thrive Assessment: Date of Thrive Assessment Date Thrive assessed 02/28/22 08/24/22 09:50 Const General: no acute distress HENMT Throat: Yes posterior oropharynx normal Neck Neck: Yes supple Resp Effort & Inspection: normal respiratory effort Auscultation: clear to auscultation bilaterally Cardio Rhythm: regular rhythm Heart sounds: S1 normal heart sound present and S2 normal heart sound present GI Inspection: Yes normal to inspection Palpation (GI): Soft to palpation Percussion: Yes normal to percussion Auscultation: normal bowel sounds Assessment and Plan Assessment & Plan (1) Sleep apnea: Comment: Moderately severe degree of sleep apnea. The AHI was 17/hr and oxygen jess was 84% Code(s): G47.30 - Sleep apnea, unspecified Plan: Continue CPAP (2) Tobacco dependence: Comment: screening lung CA negative 03/06, 03/07 Code(s): F17.200 - Nicotine dependence, unspecified, uncomplicated Plan: Tobacco quitting discussed with the patient (3) GERD (gastroesophageal reflux disease): Code(s): K21.9 - Gastro-esophageal reflux disease without esophagitis Plan: Continue PPI (4) Hyperlipidemia: Code(s): E78.5 - Hyperlipidemia, unspecified Plan: Restart pravastatin and continue low-cholesterol diet (5) Depression: Code(s): F32.9 - Major depressive disorder, single episode, unspecified Plan: Continue current medications and follow-up with Psychiatry Orders: Orders Comprehensive [place]. Panel Fast 6 Months D75.1 - Secondary polycythemia, E78.5 - Hyperlipidemia, unspecified, K21.9 - Gastro-esophageal reflux disease without esophagitis Lipid Panel 6 Months D75.1 - Secondary polycythemia, E78.5 - Hyperlipidemia, unspecified, K21.9 - Gastro-esophageal reflux disease without esophagitis Complete Blood Count Auto Diff 6 Months D75.1 - Secondary polycythemia, E78.5 - Hyperlipidemia, unspecified, K21.9 - Gastro-esophageal reflux disease without esophagitis Coding Level of Care Code Est Pt Level 4 (11430) Diagnoses Sleep apnea G47.30 Tobacco dependence F17.200 GERD (gastroesophageal reflux disease) K21.9 Hyperlipidemia E78.5 Depression F32.9
[2022-08-24 09:54] VITALS: BP 104/64; PULSE 74; O2SAT 97; BMI 26.5
== END 2022-08-24 10:48 | disposition home or self-care (01) ==
PROVIDERS: PCP Internal Medicine; Visit Provider Internal Medicine
DX: G47.30 Sleep apnea, unspecified (principal); F17.200 Nicotine dependence, unspecified, uncomplicated; K21.9 Gastro-esophageal reflux disease without esophagitis; E78.5 Hyperlipidemia, unspecified; F32.9 Major depressive disorder, single episode, unspecified
CPT/HCPCS: 99214

== ENCOUNTER 2022-08-30 08:48 | Outpatient (REF) | payer OTHER, SELFPAY | END 2022-08-30 08:49 | disposition home or self-care (01) | LOC: HO.BBR 08:48 | PROVIDERS: PCP Internal Medicine; Visit Provider Internal Medicine | DX: D75.1 Secondary polycythemia (principal) | CPT/HCPCS: 85018; 99195 ==

== ENCOUNTER 2022-09-27 10:59 | Outpatient (AMB) | payer OTHER, SELFPAY ==
[2022-09-27 11:01] VITALS: BP 125/79; PULSE 60; BMI 26.8
--- NOTE | 2022-09-27 11:01 | MHC.OFFVIS ---
Intake Vital Signs 09/27/22 11:01 Height 5 ft 6 in Weight 165 lb 12.602 oz BMI 26.8 BP 125/79 Blood Pressure Location Rt brachial Position Sitting Pulse 60 Intake Visit Reasons: Follow up Intake Note: Patient presents to in office visit today in follow up of GERD. CC: Patient reports doing well and denies having any GI issues today. Cable Installer Repairer Required: Yes Cable Installer Repairer Name: Dinah [id number] Accompanied by: Self / Same As Patient Allergies No Known Allergies [No Known Allergies*] Allergy (Verified 08/24/22 09:59) HPI Follow up HPI Details Assessment & Plan (1) H pylori ulcer: ?Code(s): K27.9 - Peptic ulcer, site unspecified, unspecified as acute or chronic, without hemorrhage or perforation; B96.81 - Helicobacter pylori [H. pylori] as the cause of diseases classified elsewhere ?Plan: PAPUA NEW GUINEAN #[id number] He completed the anitbiotics about 6 days ago, so it is still too early to retest for HP eradication. He was seen in the ER for CIC, and the pepto bismol was to blame and this has resolved. He is only taking the protonix qd but his stomach feels well. I would like him to stop taking it about 10 days before he comes back to see me so that we can do a HP breath test. I instruct him as such. He is okay with this. I also explain that sometimes when the HP is eradicated the patient may not even need to medicine anymore. IF he has breakthrough HB I instruct him to use TUMS. ROV 8 weeks. (2) Chronic idiopathic constipation: ?Code(s): K59.04 - Chronic idiopathic constipation (3) GERD (gastroesophageal reflux disease): ?Code(s): K21.9 - Gastro-esophageal reflux disease without esophagitis ? ? ? Medications: Changed From pantoprazole 40 mg? PO BID 60 t abs 6RF ? ? To pantoprazole 40 mg? PO DAILY 30 tabs 6RF ? ? Discontinued bismuth subsalicyl ate ?? Discontinue d Reason:? Doctor' s Order 2 tabs? PO QID 14 days 112 tabs 0RF A ? ? TODAY'S VISIT PAPUA NEW GUINEAN #[employer] [employer] He did not stop the protonix so we will do a stool antigen. He continues to do well on protonix, and his senna is controlling his CIC well. He is concerned because he has a gum problem that needs attention, but he can not find a dentist/provide who takes his [employer] insurance. His dentist will not do any more cleanings r/t this. ROV 6 mos. PFS Medical History Annual physical exam Anxiety Carotid artery aneurysm Depression Dextroscoliosis Erectile dysfunction GERD (gastroesophageal reflux disease) Hyperlipidemia Primary hypogonadism in male Right knee pain Schizophrenia Scoliosis Sleep apnea Spondylosis Tobacco dependence Surgical History H/O colonoscopy History of esophagogastroduodenoscopy (EGD) History of surgery on arm Family History Father No problems noted. Mother Breast cancer Brother Mental health disorder PTSD (post-traumatic stress disorder) Social History Household Members: Family Housing: Apartment Are you a primary point of care specialist to a significant other at home: No Do you presently have visiting nurse or other home services: Yes Alcohol intake: current Alcohol intake frequency: does not drink Patient Tobacco Use Status: Current everyday Tobacco user Tobacco use type: Cigarette Cigarettes Per Day: 3 e-Cigarette/Vaping Use: Never Used Second Hand Smoke Exposure: No Advance Directives Date on File: 11/20/19 service: No Current occupational status: unemployed Current occupational exposures/hazards: No Cognitive needs: No Hearing needs: No Vision needs: Yes Review of Systems Const Denies fatigue, Denies fever(s), Denies night sweats, Denies poor appetite and Denies weight loss ENT Reports Normal hearing present, Reports bleeding gums, Denies dental pain, Denies dysphagia, Denies hearing loss, Denies mouth pain, Denies odynophagia, Denies throat swelling, Denies tongue swelling and Reports other (Dentition adequate) Card Reports no additional complaints Resp Reports no additional complaints GI Denies abdominal pain, Denies melena, Denies bloating, Denies hematochezia, Reports constipation, Denies GI cramping, Denies dysphagia, Denies excessive flatus, Denies early satiety, Reports heartburn, Denies diarrhea, Denies nausea, Denies odynophagia, Denies vomiting and Denies hematemesis Skin/Breast Denies pruritus, Denies lesions, Denies rash and Denies jaundice Neuro Reports Normal hearing present and Denies Abnormal speech present Endo Denies fatigue Aller/Immun Denies throat swelling and Denies tongue swelling Physical Exam Vital Signs: Last Vital Signs Pulse 60 09/27/22 11:01 BP 125/79 09/27/22 11:01 BMI result Body Mass Index 26.8 Const General: cooperative, no acute distress, well developed and well groomed Nutritional Appearance: average body habitus and well nourished Orientation/consciousness: oriented to person, oriented to place and oriented to time Limitations: language barrier HEENT Head: Yes normocephalic and Yes atraumatic Eyes General: appearance normal, both eyes and all related structures Pupils: Equal, round and reactive pupils present Neck Neck: Yes normal visual inspection and Yes no lymphadenopathy Thyroid: Thyroid normal Resp Effort & Inspection: normal respiratory effort and able to speak in complete sentences Auscultation: clear to auscultation bilaterally Cardio Rate: regular rate Rhythm: regular rhythm Heart sounds: Normal, physiologic split S2 sound present Peripheral pulses: radial pulses present and posterior tibial pulses present GI Inspection: No distended and No Abdominal panniculus present Palpation (GI): Soft to palpation, nontender, no guarding, not rigid and No hepatosplenomegaly present Percussion: Yes normal to percussion Auscultation: normal bowel sounds Rectal Exam - Male: Yes deferred Skin General skin exam: no rashes or lesions noted, turgor normal, skin not dry, no jaundice, No spider nevi and no striae Rashes: no rashes Nails: normal Neuro General: oriented to person, oriented to place and oriented to time Cranial nerves: Yes Equal, round and reactive pupils present and Yes Normal hearing present Speech: No Abnormal speech present Extrem General: Yes normal to inspection, No clubbing, No cyanosis and No edema Psych Appearance: grossly normal and well kempt Mental Status: mental status grossly normal Speech and movement: Normal speech and movement present Affect: normal affect Attitude: cooperative Thought process: Normal thought process present and not confabulating Thought content: Normal thought content present Insight: Limited insight present (Psych) Judgement: Limited judgement present (Psych) Assessment & Plan Assessment & Plan (1) GERD (gastroesophageal reflux disease): Code(s): K21.9 - Gastro-esophageal reflux disease without esophagitis Plan: PAPUA [place]INEAN #Tali Live He did not stop the protonix so we will do a stool antigen. He continues to do well on protonix, and his senna is controlling his CIC well. He is concerned because he has a gum problem that needs attention, but he can not find a dentist/provide who takes his [employer] insurance. His dentist will not do any more cleanings r/t this. ROV 6 mos. (2) Chronic idiopathic constipation: Code(s): K59.04 - Chronic idiopathic constipation (3) H. pylori infection: Comment: txd 2020, EGD negative 2016 Dr. Lama Code(s): A04.8 - Other specified bacterial intestinal infections Orders: Orders H pylori Ag Stool Today A04.8 - Other specified bacterial intestinal infections Medications: Refilled pantoprazole 40 mg PO DAILY 30 tabs 6RF sennosides (senna) 17.2 mg (2 x 8.6 mg) PO BEDTIME 30 days 60 caps 6RF constipation K59.04 - Chronic idiopathic constipation Coding Level of Care Code Est Pt Level 3 (02778) Diagnoses GERD (gastroesophageal reflux disease) K21.9 Chronic idiopathic constipation K59.04 H. pylori infection A04.8
== END 2022-09-27 11:34 | disposition home or self-care (01) ==
PROVIDERS: PCP Internal Medicine; Visit Provider Nurse Practitioner
DX: K21.9 Gastro-esophageal reflux disease without esophagitis (principal); K59.04 Chronic idiopathic constipation; A04.8 Other specified bacterial intestinal infections
CPT/HCPCS: 99213

== ENCOUNTER → 2022-09-27 10:59 | Outpatient (BNVA) | payer OTHER, SELFPAY | PROVIDERS: PCP Internal Medicine; Visit Provider Nurse Practitioner | DX: K21.9 Gastro-esophageal reflux disease without esophagitis (principal); K59.04 Chronic idiopathic constipation; A04.8 Other specified bacterial intestinal infections; Z79.899 Other long term (current) drug therapy | CPT/HCPCS: 99212 ==

== ENCOUNTER 2022-09-29 07:36 | Outpatient (REF) | payer OTHER, SELFPAY | END 2022-09-29 07:37 | disposition home or self-care (01) | LOC: HO.LNP 07:36 | PROVIDERS: Visit Provider Nurse Practitioner | DX: A04.8 Other specified bacterial intestinal infections (principal) | CPT/HCPCS: 87338 ==

== ENCOUNTER 2022-11-30 07:53 | Outpatient (REF) | payer OTHER, SELFPAY | END 2022-11-30 07:54 | disposition home or self-care (01) | LOC: HO.BBR 07:53 | PROVIDERS: PCP Internal Medicine; Visit Provider Internal Medicine | DX: D75.1 Secondary polycythemia (principal) | CPT/HCPCS: 85018; 99195 ==

== ENCOUNTER 2022-12-05 08:14 | Outpatient (REF) | payer OTHER, SELFPAY ==
[2022-12-05 09:41] LABS: Prostate Specific Antigen 0.55 ng/mL (<0.05-4.0)
== END 2022-12-05 08:15 | disposition home or self-care (01) ==
LOC: HO.LAB 08:14
PROVIDERS: PCP Internal Medicine; Visit Provider Nurse Practitioner Family
DX: Z12.5 Encounter for screening for malignant neoplasm of prostate (principal); N40.0 Benign prostatic hyperplasia without lower urinary tract symptoms
CPT/HCPCS: 36415; 84153

== ENCOUNTER 2022-12-07 10:41 | Outpatient (AMB) | payer OTHER, SELFPAY ==
--- NOTE | 2022-12-07 11:34 | MHC.OFFVIS ---
Intake Intake Visit Reasons: 6m/labs(set) Intake Note: Patient Follow up for erectile dysfunction/psa lab (psa 0.55) Urology Medication: Tadalafil (Cialis) Blood Thinner: aspirin School Custodian Required: Yes School Custodian Name: [id number] Accompanied by: Spouse Allergies No Known Allergies [No Known Allergies*] Allergy (Verified 12/08/22 09:30) Medication List - Last Reconciled 12/08/22 by Lisha Grijalva [facility]- aripiprazole (Abilify) 2 mg PO DAILY aspirin 81 mg PO DAILY cholecalciferol (vitamin D3) 50 mcg PO DAILY cyclobenzaprine 10 mg PO .prn mirtazapine 45 mg PO BEDTIME pantoprazole 40 mg PO DAILY pravastatin 80 mg PO DAILY sennosides (senna) 17.2 mg (2 x 8.6 mg) PO BEDTIME 30 days sildenafil (Viagra) 100 mg PO DAILY 90 days zolpidem (Ambien) 10 mg PO BEDTIME PRN HPI HPI Comments History of Present Illness Details Chapo is a pleasant 57-year-old male patient of who was accompanied by his at today's visit. He has a past medical history of sleep apnea, tobacco dependence, schizophrenia, scoliosis, hyperlipidemia, GERD, spondylosis, anxiety, and depression. Patient presents to the office for follow-up regarding erectile dysfunction. Of note, patient was seen approximately 3 months ago at which time he was started on low-dose Cialis daily and testosterone lab values were ordered for further assessment evaluation. The patient presents to the office today for follow-up of medication trial and for lab review. When asked patient reports to be doing and feeling well. He reports feeling no improvement with low-dose Cialis 5 mg daily. He discusses wanting to trial Viagra as he has had this in the past in [place] and had improvement in erectile dysfunction with this medication. Recent PSA results reviewed with the patient and his today. PSA 12/05--0.6. Discussed at length importance of healthy eating habits, exercise daily, limiting/quitting smoking and adequate sleep for overall health and well-being. When asked he denies any issues with urination. In office urinalysis today within normal limits. When asked he denies urinary urgency, urinary frequency, incontinence, nocturia, hematuria, dysuria, foul smelling urine, changes to urinary stream, flank pain, fever, and or chills. He is happy with his current voiding parameters. [facility] Medical History (Updated 12/08/22 @ 16:09 by [facility] Annual physical exam Sleep apnea Tobacco dependence Schizophrenia Primary hypogonadism in male Right knee pain Scoliosis Hyperlipidemia GERD (gastroesophageal reflux disease) Spondylosis Carotid artery aneurysm Dextroscoliosis Depression Anxiety Surgical History History of surgery on arm History of esophagogastroduodenoscopy (EGD) H/O colonoscopy Family History Father No problems noted. Mother Breast cancer Brother Mental health disorder PTSD (post-traumatic stress disorder) Social History Household Members: Family Housing: Apartment Are you a primary healthcare network pricing consultant to a significant other at home: No Do you presently have visiting nurse or other home services: Yes Alcohol intake: current Alcohol intake frequency: does not drink Patient Tobacco Use Status: Current everyday Tobacco user Tobacco use type: Cigarette Cigarettes Per Day: 3 e-Cigarette/Vaping Use: Never Used Second Hand Smoke Exposure: No Advance Directives Date on File: 11/20/19 service: No Current occupational status: unemployed Current occupational exposures/hazards: No Cognitive needs: No Hearing needs: No Vision needs: Yes Review of Systems Const Reports as per [facility] Eyes Reports no additional complaints ENT Reports no additional complaints Card Reports as per HPI Resp Reports as per HPI GI Reports as per HPI Reports as per HPI Musc Reports as per HPI Neuro Reports as per HPI Psych Reports as per HPI Endo Reports no additional complaints Physical Exam Const General: cooperative, healthy appearing, comfortable, no acute distress, well developed, alert and awake Nutritional Appearance: average body habitus Orientation/consciousness: patient oriented x3 Limitations: no limitations HEENT Head: Yes normal to inspection, Yes normocephalic and Yes atraumatic Ears: hearing grossly normal bilaterally Eyes General: appearance normal, both eyes and all related structures Neck Neck: Yes normal visual inspection and Yes trachea midline Chest Chest palpation & inspection: normal inspection of the chest Resp Effort & Inspection: normal respiratory effort and able to speak in complete sentences Cardio Rate: regular rate GI Inspection: Yes normal to inspection General: Yes no CVA tenderness Back/Spine/Pelvis Back: no CVA tenderness Skin General skin exam: no rashes or lesions noted Neuro General: patient oriented x3 Extrem General: Yes normal to inspection and Yes full ROM Psych Appearance: grossly normal and well kempt Mental Status: mental status grossly normal Speech and movement: Normal speech and movement present and Clear speech present Affect: normal affect Attitude: cooperative Thought process: Normal thought process present Thought content: Normal thought content present Insight: Fair insight present (Psych) Judgement: Fair judgement present (Psych) Results AMB Urinalysis, Automated UA Leukoctes 0 Jairo/uL Last Edit by [employer] on 12/07/22 11:58 UA Nitrite Negative Last Edit by [employer] on 12/07/22 11:58 UA Urobilinogen 0.2 mg/dL Last Edit by [employer] on 12/07/22 11:58 UA Protein 0 mg/dL Last Edit by [employer] on 12/07/22 11:58 UA pH 5.5 Last Edit by [employer] on 12/07/22 11:58 UA Blood 0 Ayaz/uL Last Edit by [employer] on 12/07/22 11:58 UA Specific [place] 1.030 Last Edit by [employer] on 12/07/22 11:58 UA Ketone Negative Last Edit by [employer] on 12/07/22 11:58 UA Bilirubin 0 mg/dL Last Edit by [employer] on 12/07/22 11:58 UA Glucose 0 mg/dL Last Edit by [employer] on 12/07/22 11:58 Results Reviewed Results Reviewed: Laboratory Last Values Urine pH (Auto) 5.5 12/07/22 11:42 Specific [place] (Auto) 1.030 12/07/22 11:42 Urine Protein (Auto) 0 mg/dL 12/07/22 11:42 Glucose (UA)(Auto) 0 mg/dL 12/07/22 11:42 Urine Ketones (Auto) Negative 12/07/22 11:42 Urine Blood (Auto) 0 Ayaz/uL 12/07/22 11:42 Urine Nitrite (Auto) Negative 12/07/22 11:42 Urine Bilirubin (Auto) 0 mg/dL 12/07/22 11:42 Urine Urobilinogen (Auto) 0.2 mg/dL 12/07/22 11:42 Leukocyte Esterase (Auto) 0 Jairo/uL 12/07/22 11:42 Assessment & Plan Assessment & Plan (1) Erectile dysfunction: Code(s): N52.9 - Male erectile dysfunction, unspecified Plan In office urinalysis results reviewed with the patient today; as noted above. Stop Cialis. Start Viagra as needed 1 hour prior to sexual activity as discussed and prescribed. Discussed at length importance of limiting/quitting cigarette smoking, eating healthy, exercise, an adequate sleep daily for overall health and well-being. Is happy with his current voiding parameters. Patient denies any urological issues or concerns at this time. Follow up in 3 months; or sooner with any issues, concerns, and or questions. Orders: Orders AMB Urinalysis Automated 12/07/22 Z13.9 - Encounter for screening, unspecified Medications: New sildenafil (Viagra) [facility] [id number] [facility] Group DR33 100 mg PO DAILY 90 days 90 tabs 0RF Discontinued tadalafil (Cialis) [facility] Group [facility] DR33 [id number] Discontinued Reason: Doctor's Order 5 mg PO DAILY 90 days 90 tabs 3RF Patient Instructions: The patient had an opportunity to ask questions regarding the treatment plan. All questions were answered. Physical exam, labs, and imaging were discussed and reviewed in detail. As well as risks, benefits, and discussion of treatment choices. No major barriers to understanding were identified. The patient expressed understanding and agreement with the above treatment plan. The patient was made aware they should contact our office by phone for worsening of their current condition, the appearance of new symptoms, or with any questions or concerns. Compliance is encouraged with any medications and follow up testing that is ordered. It is a privilege to be allowed the opportunity to participate in? your urological care.? Again, if you have any questions or concerns If you have any questions or concerns please do not hesitate to contact me. The office is [phone]. This note is constructed using voice recognition software. While every effort has been made to ensure accuracy automotive project engineer errors may have been included. Yours sincerely, GERMÁN Shaw-BC Coding Level of Care Code Est Pt Level 4 (52661) Diagnoses Erectile dysfunction N52.9
== END 2022-12-07 12:19 | disposition home or self-care (01) ==
PROVIDERS: Visit Provider Nurse Practitioner Family
DX: N52.9 Male erectile dysfunction, unspecified (principal)
CPT/HCPCS: 99214

== ENCOUNTER → 2022-12-07 10:41 | Outpatient (BNVA) | payer OTHER, SELFPAY | PROVIDERS: Visit Provider Nurse Practitioner Family | DX: N52.9 Male erectile dysfunction, unspecified (principal) | CPT/HCPCS: 81003; 99212 ==

== ENCOUNTER 2022-12-08 08:49 | Outpatient (AMB) | payer OTHER, SELFPAY ==
[2022-12-08 08:52] VITALS: BP 129/77; PULSE 79; BMI 26.5
--- NOTE | 2022-12-08 08:52 | MHC.OFFVIS ---
Intake Vital Signs 12/08/22 08:52 Height 5 ft 6 in Weight 164 lb 7.437 oz BMI 26.5 BP 129/77 Blood Pressure Location Rt brachial Position Sitting Pulse 79 Intake Visit Reasons: 6 Month Follow up Intake Note: Patient presents to in office visit today in follow up of GERD. CC: Patient reports occasional acid reflux. Denies other GI symptoms today. Clinical Trainer Required: Yes Clinical Trainer Name: Reese [id number] Accompanied by: Self / Same As Patient Allergies No Known Allergies [No Known Allergies*] Allergy (Verified 12/08/22 09:30) HPI 6 Month Follow up HPI Details Assessment & Plan (1) GERD (gastroesophageal reflux disease): Code(s): K21.9 - Gastro-esophageal reflux disease without esophagitis Plan: [place] He did not stop the protonix so we will do a stool antigen. He continues to do well on protonix, and his senna is controlling his CIC well. He is concerned because he has a gum problem that needs attention, but he can not find a dentist/provide who takes his [employer] insurance. His dentist will not do any more cleanings r/t this. ROV 6 mos. (2) Chronic idiopathic constipation: Code(s): K59.04 - Chronic idiopathic constipation (3) H. pylori infection: Comment: txd 2020, EGD negative 2016 Dr. Lama Code(s): A04.8 - Other specified bacterial intestinal infections Orders: Orders H pylori Ag Stool Today A04.8 - Other spec ified bacterial in testinal infection s Medications: Refilled pantoprazole 40 mg PO DAILY 30 tabs 6RF sennosides (senna) 17.2 mg (2 x 8.6 m g) PO BEDTIME 30 d ays 60 caps 6RF co nstipation K59.04 - Chronic i diopathic constipa tion Laboratory Tests 09/29/22 06:10 Stool H. pylori Ag negative TODAY'S VISIT [place] #[id number] IN general he feels well. He continues on his pantoprazole 40 mg once a day. He will have some mild GERD at bedtime, and I explain that there can be a fade of the effect of the PPI after 12 hours for some people, but since his sx are mild I suggest he keep TUMS on hand for this. His CIC is has been doing well and he has not needed the senna recently. ROV 6 mos. [facility] Medical History (Updated 01/13/23 @ 15:22 by MESHA Reyna) Annual physical exam Sleep apnea Tobacco dependence Schizophrenia Primary hypogonadism in male Right knee pain Scoliosis Hyperlipidemia GERD (gastroesophageal reflux disease) Spondylosis Carotid artery aneurysm Dextroscoliosis Depression Anxiety Surgical History History of surgery on arm History of esophagogastroduodenoscopy (EGD) H/O colonoscopy Family History Father No problems noted. Mother Breast cancer Brother Mental health disorder PTSD (post-traumatic stress disorder) Social History Household Members: Family Housing: Apartment Are you a primary childcare worker to a significant other at home: No Do you presently have visiting nurse or other home services: Yes Alcohol intake: current Alcohol intake frequency: does not drink Patient Tobacco Use Status: Current everyday Tobacco user Tobacco use type: Cigarette Cigarettes Per Day: 3 e-Cigarette/Vaping Use: Never Used Second Hand Smoke Exposure: No Advance Directives Date on File: 11/20/19 service: No Current occupational status: unemployed Current occupational exposures/hazards: No Cognitive needs: No Hearing needs: No Vision needs: Yes Review of Systems Const Denies fatigue, Denies fever(s), Denies night sweats, Denies poor appetite and Denies weight loss ENT Reports Normal hearing present, Denies dental pain, Denies dysphagia, Denies hearing loss, Denies mouth pain, Denies odynophagia, Denies throat swelling, Denies tongue swelling and Reports other (Dentition adequate) Card Reports no additional complaints Resp Reports no additional complaints GI Denies abdominal pain, Denies melena, Denies bloating, Denies hematochezia, Reports constipation, Denies GI cramping, Denies dysphagia, Denies excessive flatus, Denies early satiety, Reports heartburn, Denies diarrhea, Denies nausea, Denies odynophagia, Denies vomiting and Denies hematemesis Skin/Breast Denies pruritus, Denies lesions, Denies rash and Denies jaundice Neuro Reports Normal hearing present and Denies Abnormal speech present Endo Denies fatigue Aller/Immun Denies throat swelling and Denies tongue swelling Physical Exam Vital Signs: Last Vital Signs Pulse 79 12/08/22 08:52 BP 129/77 12/08/22 08:52 BMI result Body Mass Index 26.5 Const General: cooperative, no acute distress, well developed and well groomed Nutritional Appearance: average body habitus and well nourished Orientation/consciousness: oriented to person, oriented to place and oriented to time Limitations: language barrier HEENT Head: Yes normocephalic and Yes atraumatic Eyes General: appearance normal, both eyes and all related structures Pupils: Equal, round and reactive pupils present Neck Neck: Yes normal visual inspection and Yes no lymphadenopathy Thyroid: Thyroid normal Resp Effort & Inspection: normal respiratory effort and able to speak in complete sentences Auscultation: clear to auscultation bilaterally Cardio Rate: regular rate Rhythm: regular rhythm Heart sounds: Normal, physiologic split S2 sound present Peripheral pulses: radial pulses present and posterior tibial pulses present GI Inspection: No distended and No Abdominal panniculus present Palpation (GI): Soft to palpation, nontender, no guarding, not rigid and No hepatosplenomegaly present Percussion: Yes normal to percussion Auscultation: normal bowel sounds Rectal Exam - Male: Yes deferred Skin General skin exam: no rashes or lesions noted, turgor normal, skin not dry, no jaundice, No spider nevi and no striae Rashes: no rashes Nails: normal Neuro General: oriented to person, oriented to place and oriented to time Cranial nerves: Yes Equal, round and reactive pupils present and Yes Normal hearing present Speech: No Abnormal speech present Extrem General: Yes normal to inspection, No clubbing, No cyanosis and No edema Psych Appearance: grossly normal and well kempt Mental Status: mental status grossly normal Speech and movement: Normal speech and movement present Affect: normal affect Attitude: cooperative Thought process: Normal thought process present and not confabulating Thought content: Normal thought content present Insight: Limited insight present (Psych) Judgement: Limited judgement present (Psych) Assessment & Plan Assessment & Plan (1) GERD (gastroesophageal reflux disease): Code(s): K21.9 - Gastro-esophageal reflux disease without esophagitis Plan: CIT[place] #[id number] IN general he feels well. He continues on his pantoprazole 40 mg once a day. He will have some mild GERD at bedtime, and I explain that there can be a fade of the effect of the PPI after 12 hours for some people, but since his sx are mild I suggest he keep TUMS on hand for this. His CIC is has been doing well and he has not needed the senna recently. ROV 6 mos. (2) Chronic idiopathic constipation: Code(s): K59.04 - Chronic idiopathic constipation (3) H pylori ulcer: Comment: Stool antigen 09/30/2019 3-after treatment Code(s): K27.9 - Peptic ulcer, site unspecified, unspecified as acute or chronic, without hemorrhage or perforation; B96.81 - Helicobacter pylori [H. pylori] as the cause of diseases classified elsewhere Medications: Refilled pantoprazole 40 mg PO DAILY 30 tabs 6RF sennosides (senna) 17.2 mg (2 x 8.6 mg) PO BEDTIME 60 caps 6RF constipation 30 days K59.04 - Chronic idiopathic constipation Coding Level of Care Code Est Pt Level 3 (49492) Diagnoses GERD (gastroesophageal reflux disease) K21.9 Chronic idiopathic constipation K59.04 H pylori ulcer K27.9; B96.81
== END 2022-12-08 09:18 | disposition home or self-care (01) ==
PROVIDERS: PCP Internal Medicine; Visit Provider Nurse Practitioner
DX: K21.9 Gastro-esophageal reflux disease without esophagitis (principal); K59.04 Chronic idiopathic constipation; K27.9 Peptic ulcer, site unspecified, unspecified as acute or chronic, without hemorrhage or perforation; B96.81 Helicobacter pylori [H. pylori] as the cause of diseases classified elsewhere
CPT/HCPCS: 99213

== ENCOUNTER → 2022-12-08 08:49 | Outpatient (BNVA) | payer OTHER, SELFPAY | PROVIDERS: PCP Internal Medicine; Visit Provider Nurse Practitioner | DX: K21.9 Gastro-esophageal reflux disease without esophagitis (principal); K59.04 Chronic idiopathic constipation; K27.9 Peptic ulcer, site unspecified, unspecified as acute or chronic, without hemorrhage or perforation; B96.81 Helicobacter pylori [H. pylori] as the cause of diseases classified elsewhere | CPT/HCPCS: 99212 ==

== ENCOUNTER 2023-03-02 07:53 | Outpatient (REF) | payer OTHER, SELFPAY | END 2023-03-02 07:54 | disposition home or self-care (01) | LOC: HO.BBR 07:53 | PROVIDERS: PCP Internal Medicine; Visit Provider Internal Medicine | DX: D75.1 Secondary polycythemia (principal) | CPT/HCPCS: 85018; 99195 ==

== ENCOUNTER 2023-03-02 09:59 | Outpatient (AMB) | payer OTHER, SELFPAY ==
--- NOTE | 2023-03-02 10:06 | A.OFFPC_ITS ---
Vital Signs 03/02/23 10:08 Height 5 ft 6 in Weight 165 lb BMI 26.6 BP 92/64 Blood Pressure Location Rt brachial Position Sitting Pulse 80 Pulse Source Pulse Oximeter Pulse Oximetry (%) 97 Oxygen Delivery Method Room Air Intake Visit Reasons: PE Allergies No Known Allergies [No Known Allergies*] Allergy (Verified 03/02/23 10:10) Medication List - Last Reconciled 03/02/23 by Yaima Collier MD aripiprazole (Abilify) 2 mg PO DAILY aspirin 81 mg PO DAILY cholecalciferol (vitamin D3) 50 mcg PO DAILY cyclobenzaprine 10 mg PO .prn mirtazapine 45 mg PO BEDTIME pantoprazole 40 mg PO DAILY pravastatin 80 mg PO DAILY sennosides (senna) 17.2 mg (2 x 8.6 mg) PO BEDTIME 30 days sildenafil (Viagra) 100 mg PO DAILY 90 days zolpidem (Ambien) 10 mg PO BEDTIME PRN Tobacco use date assessed: 03/02/23 Dental Screening Dental Screen Date: 03/02/23 Did you have a dental visit in the last 12 months?: Yes Did you have a dental problem in the last 6 months where you did not have access to dental care?: No Was dental information given to patient?: Patient has dentist HPI PE HPI Details Pt presents for PE. He complains of hand tremor when trying to hold utensils or writing for a few months. Patient complains of chronic right groin pain worse when starting to walk and intermittent lower back pain. he denies weakness or numbness in extremities. [facility] Medical History (Updated 03/02/23 @ 10:44 by Yaima Collier MD) Annual physical exam Sleep apnea Tobacco dependence Schizophrenia Primary hypogonadism in male Right knee pain Scoliosis Hyperlipidemia GERD (gastroesophageal reflux disease) Spondylosis Carotid artery aneurysm Dextroscoliosis Depression Anxiety Surgical History History of surgery on arm History of esophagogastroduodenoscopy (EGD) H/O colonoscopy Family History Father No problems noted. Mother Breast cancer Brother Mental health disorder PTSD (post-traumatic stress disorder) Social History Household Members: Family Housing: Apartment Are you a primary medicare contact specialist to a significant other at home: No Do you presently have visiting nurse or other home services: Yes Alcohol intake: current Alcohol intake frequency: does not drink Patient Tobacco Use Status: Current everyday Tobacco user Tobacco use type: Cigarette Cigarettes Per Day: 3 e-Cigarette/Vaping Use: Never Used Second Hand Smoke Exposure: No Advance Directives Date on File: 11/20/19 service: No Current occupational status: unemployed Current occupational exposures/hazards: No Cognitive needs: No Hearing needs: No Vision needs: Yes Questionnaire PHQ-9 Over the last 2 weeks, how often have you been bothered by any of the following problems? 1. Little interest or pleasure in doing things: more than half the days 2. Feeling down, depressed, or hopeless: not at all 3. Trouble falling or staying asleep, or sleeping too much: not at all 4. Feeling tired or having little energy: more than half the days 5. Poor appetite or overeating: several days 6. Feeling bad about yourself - or that you are a failure or have let yourself or your family down: not at all 7. Trouble concentrating on things, such as reading the newspaper or watching television: not at all 8. Moving or speaking so slowly that other people could have noticed. Or the opposite - being so fidgety or restless that you have been moving around a lot more than usual: not at all 9. Thoughts that you would be better off or of hurting yourself in some way: not at all Total score: 5 Depression Screening Interpretation: Negative Depression Screening Done: Yes Source: Developed by Drs. Jatinder Mei, Jennifer Hidalgo, Peter Brooks and colleagues, with an educational desiree from [employer]. Thrive Questionnaire Date Thrive assessed: 03/02/23 I am a: Patient What is your living situation today?: I have a place to live, but I am worried about losing it in the future Within the past 12 months, did the food you bought not last and you didn't have the money to get more?: Never true Within the past 12 months, did you worry whether your food would run out before you got money to buy more?: Never true Do you have trouble paying for medicines?: No Do you have trouble getting transportation to medical appointments?: No Do you have trouble paying your heating and electricity bill?: No Do you have trouble taking care of your child, family member or friend?: No Do you have trouble with day-to-day activities such as bathing, preparing meals, shopping, managing finances, etc.?: No Are you currently unemployed and looking for a job?: No Are you interested in more education?: No Please select the resources that you would like help with: None Currently or been in a relationship where the following occur: no concerns reported AUDIT C Alcohol Use Questionnaire (AUDIT-C) 1. How often do you have a drink containing alcohol?: 2-4 times a month 2. How many drinks containing alcohol do you have on a typical day when you are drinking?: 1 or 2 3. How often do you have six or more drinks on one occasion?: Never Total Score: 2 WENDY-7 AMB Questionnaire WENDY-7 Date WENDY - 7 assessed: 03/02/23 Feeling nervous, anxious, or on edge: 0 = Not at all Not being able to stop or control worryin = Not at all Worrying too much about different things: 0 = Not at all Trouble relaxin = Not at all Being so restless that it is hard to sit still: 0 = Not at all Becoming easily annoyed or irritable: 0 = Not at all Feeling afraid as if something awful might happen: 0 = Not at all Total WENDY-7 score (0-4 normal; 5-9 mild; 10-14 moderate; 15-21 severe): 0 Source: Developed by Drs. Jatinder Mei, Jennifer Hidalgo, Peter Brooks and colleagues, with an educational desiree from [employer]. Review of Systems Const All systems reviewed & are unremarkable except as noted in HPI and below Reports no additional complaints Eyes Reports no additional complaints ENT Reports no additional complaints Card Reports no additional complaints Resp Reports no additional complaints Physical exam (Primary Care) Vital Signs: Last Vital Signs Pulse 80 03/02/23 10:08 BP 92/64 03/02/23 10:08 Pulse Ox 97 03/02/23 10:08 Oxygen Delivery Method Room Air 03/02/23 10:08 BMI result Body Mass Index 26.6 Tobacco/Smoking Status: Tobacco use Status Tobacco use date assessed 03/02/23 03/02/23 10:13 Patient Tobacco Use Status Current everyday Tobacco 03/02/23 10:06 Tobacco use type Cigarette 03/02/23 10:06 e-Cigarette/Vaping Use Never Used 03/02/23 10:06 PHQ-9: PHQ-9 Score PHQ-9: Total score 5 03/02/23 10:14 Depression Screening Interpretation: Negative Thrive Assessment: Date of Thrive Assessment Date Thrive assessed 03/02/23 03/02/23 10:14 Currently or been in a relationship where the following occur: no concerns reported Const General: no acute distress HENMT Head: Yes normal to inspection Ears: hearing grossly normal bilaterally Face and sinus: Yes normal facial exam Mouth: Normal oral and palatal mucosa present Throat: Yes posterior oropharynx normal Eyes General: appearance normal, both eyes and all related structures Neck Neck: Yes no lymphadenopathy and Yes supple Resp Effort & Inspection: normal respiratory effort Auscultation: clear to auscultation bilaterally Cardio Rhythm: regular rhythm Heart sounds: S1 normal heart sound present and S2 normal heart sound present GI Inspection: Yes normal to inspection Palpation (GI): Soft to palpation Percussion: Yes normal to percussion Auscultation: normal bowel sounds Back/Spine/Pelvis Other: There is decreased range of motion of both hips right more than left, straight leg rising 90 degrees bilaterally Assessment and Plan Assessment & Plan (1) Tremor: Code(s): R25.1 - Tremor, unspecified Plan: Referred to neurologist to evaluate for essential tremor (2) Hip pain, bilateral: Code(s): M25.551 - Pain in right hip; M25.552 - Pain in left hip Plan: Obtain x-rays of both hips and refer to physical therapy (3) Anxiety: Comment: Follows up with Psychiatry Code(s): F41.9 - Anxiety disorder, unspecified Plan: Continue current medications (4) Annual physical exam: Code(s): Z00.00 - Encounter for general adult medical examination without abnormal findings Plan: Well-balanced diet increase physical activity tobacco quitting discussed with the patient. He will return for fasting blood work and will follow-up in 6 months (5) Sleep apnea: Comment: Moderately severe degree of sleep apnea. The AHI was 17/hr and oxygen jess was 84% Code(s): G47.30 - Sleep apnea, unspecified Plan: Continue CPAP (6) Tobacco dependence: Comment: screening lung CA negative 03/06, 03/07 Code(s): F17.200 - Nicotine dependence, unspecified, uncomplicated Plan: Tobacco quitting discussed with the patient he is in the lung cancer screening program (7) Hyperlipidemia: Code(s): E78.5 - Hyperlipidemia, unspecified Plan: Continue statin Orders: Orders PT Evaluation and Treatment Today M25.551 - Pain in right hip, M25.552 - Pain in left hip Comprehensive [place]. Panel Fast 6 Months E78.5 - Hyperlipidemia, unspecified, R25.1 - Tremor, unspecified, Z00.00 - Encounter for general adult medical examination without abnormal findings Lipid Panel 6 Months E78.5 - Hyperlipidemia, unspecified, R25.1 - Tremor, unspecified, Z00.00 - Encounter for general adult medical examination without abnormal findings TSH reflex Free T4 Today E78.5 - Hyperlipidemia, unspecified, R25.1 - Tremor, unspecified, Z00.00 - Encounter for general adult medical examination without abnormal findings Comprehensive [place]. Panel Fast Today E78.5 - Hyperlipidemia, unspecified, R25.1 - Tremor, unspecified XR hip BI w PEL1V Today M25.551 - Pain in right hip, M25.552 - Pain in left hip Complete Blood Count Auto Diff 6 Months E78.5 - Hyperlipidemia, unspecified, R25.1 - Tremor, unspecified, Z00.00 - Encounter for general adult medical examination without abnormal findings Lipid Panel Today E78.5 - Hyperlipidemia, unspecified, R25.1 - Tremor, unspecified Referrals Neurology Referral R25.1 - Tremor, unspecified Coding Level of Care Code Est Pt Prev Care 40-64y(45191) Diagnoses Tremor R25.1 Hip pain, bilateral M25.551; M25.552 Anxiety F41.9 Annual physical exam Z00.00 Sleep apnea G47.30 Tobacco dependence F17.200 Hyperlipidemia E78.5
[2023-03-02 10:08] VITALS: BP 92/64; PULSE 80; O2SAT 97; BMI 26.6
== END 2023-03-02 10:46 | disposition home or self-care (01) ==
PROVIDERS: PCP Internal Medicine; Visit Provider Internal Medicine
DX: R25.1 Tremor, unspecified (principal); M25.551 Pain in right hip; M25.552 Pain in left hip; F41.9 Anxiety disorder, unspecified; Z00.00 Encounter for general adult medical examination without abnormal findings; G47.30 Sleep apnea, unspecified; F17.200 Nicotine dependence, unspecified, uncomplicated; E78.5 Hyperlipidemia, unspecified
CPT/HCPCS: 99396

== ENCOUNTER 2023-03-10 10:32 | Outpatient (AMB) | payer OTHER, SELFPAY ==
--- NOTE | 2023-03-10 11:08 | MHC.OFFVIS ---
Intake Intake Visit Reasons: 3m follow up Intake Note: Patient presents today for a follow-up on: Erectile Dysfunction Meds- Sildenafil Allergies to Antibiotic- No Known Allergies Blood Thinner- Aspirin Orchestra Conductor Required: Yes Orchestra Conductor Name: CLAUDETTE SPRINGER-RONNYI Accompanied by: Self / Same As Patient Allergies No Known Allergies [No Known Allergies*] Allergy (Verified 03/11/23 21:07) Medication List - Last Reconciled 03/11/23 by BIANKA ShawP- aripiprazole (Abilify) 2 mg PO DAILY aspirin 81 mg PO DAILY cholecalciferol (vitamin D3) 50 mcg PO DAILY cyclobenzaprine 10 mg PO .prn mirtazapine 45 mg PO BEDTIME pantoprazole 40 mg PO DAILY pravastatin 80 mg PO DAILY sennosides (senna) 17.2 mg (2 x 8.6 mg) PO BEDTIME 30 days sildenafil (Viagra) 100 mg PO DAILY 90 days tamsulosin (Flomax) 0.4 mg PO BEDTIME 30 days zolpidem (Ambien) 10 mg PO BEDTIME PRN HPI HPI Comments History of Present Illness Details Chapo is a pleasant 57-year-old male patient of . He has a past medical history of sleep apnea, tobacco dependence, schizophrenia, scoliosis, hyperlipidemia, GERD, spondylosis, anxiety, and depression. Patient presents to the office for follow-up regarding erectile dysfunction. Of note, patient was seen approximately 3 months ago at which time he was started on p.r.n. Viagra for his erectile dysfunction. He reports significant improvement in maintaining and obtaining erections. He reports noting intermittent issues with urinary hesitancy. He otherwise denies urinary urgency, urinary frequency, incontinence, nocturia, hematuria, dysuria, foul smelling urine, changes to urinary stream, flank pain, fever, and or chills. Previous workup for his erectile dysfunction has included PSA 12/05--0.6, total testosterone 06/05--450, and free testosterone 06/05--63.9. He has previously trialed low-dose Cialis with no improvement. Discussed at length importance of healthy eating habits, exercise daily, limiting/quitting smoking and adequate sleep for overall health and well-being. In office urinalysis results reviewed with the patient today. [facility] Medical History Annual physical exam Sleep apnea Tobacco dependence Schizophrenia Primary hypogonadism in male Right knee pain Scoliosis Hyperlipidemia GERD (gastroesophageal reflux disease) Spondylosis Carotid artery aneurysm Dextroscoliosis Depression Anxiety Surgical History History of surgery on arm History of esophagogastroduodenoscopy (EGD) H/O colonoscopy Family History Father No problems noted. Mother Breast cancer Brother Mental health disorder PTSD (post-traumatic stress disorder) Social History Household Members: Family Housing: Apartment Are you a primary lawn care technician to a significant other at home: No Do you presently have visiting nurse or other home services: Yes Alcohol intake: current Alcohol intake frequency: does not drink Patient Tobacco Use Status: Current everyday Tobacco user Tobacco use type: Cigarette Cigarettes Per Day: 3 e-Cigarette/Vaping Use: Never Used Second Hand Smoke Exposure: No Advance Directives Date on File: 11/20/19 service: No Current occupational status: unemployed Current occupational exposures/hazards: No Cognitive needs: No Hearing needs: No Vision needs: Yes Review of Systems Const Reports as per [facility] Eyes Reports no additional complaints ENT Reports no additional complaints Card Reports as per [facility] Resp Reports as per [facility] GI Reports as per [facility] Reports as per [facility] Musc Reports as per [facility] Neuro Reports as per [facility] Psych Reports as per [facility] Endo Reports no additional complaints Physical Exam Const General: cooperative, healthy appearing, comfortable, no acute distress, well developed, alert and awake Nutritional Appearance: average body habitus Orientation/consciousness: patient oriented x3 Limitations: no limitations HEENT Head: Yes normal to inspection, Yes normocephalic and Yes atraumatic Ears: hearing grossly normal bilaterally Eyes General: appearance normal, both eyes and all related structures Neck Neck: Yes normal visual inspection and Yes trachea midline Chest Chest palpation & inspection: normal inspection of the chest Resp Effort & Inspection: normal respiratory effort and able to speak in complete sentences Cardio Rate: regular rate GI Inspection: Yes normal to inspection General: Yes no CVA tenderness Back/Spine/Pelvis Back: no CVA tenderness Skin General skin exam: no rashes or lesions noted Neuro General: patient oriented x3 Extrem General: Yes normal to inspection and Yes full ROM Psych Appearance: grossly normal and well kempt Mental Status: mental status grossly normal Speech and movement: Normal speech and movement present and Clear speech present Affect: normal affect Attitude: cooperative Thought process: Normal thought process present Thought content: Normal thought content present Insight: Fair insight present (Psych) Judgement: Fair judgement present (Psych) Results AMB Urinalysis, Automated UA Leukoctes 0 Jairo/uL Last Edit by Dee Lunaberlin Luna [facility] on 03/10/23 11:16 UA Nitrite Negative [facility] on 03/10/23 11:16 UA Urobilinogen 0.2 mg/dL Last Edit by Dee Luna Luna, [facility] on 03/10/23 11:16 UA Protein 15 mg/dL Last Edit by Dee Lunaberlin Gloriaa [facility] on 03/10/23 11:16 UA pH 7.0 Last Edit by Dee Lunaberlin Gloriaa [facility] on 03/10/23 11:16 UA Blood 0 Ayaz/uL Last Edit by Dee Luna Luna [facility] on 03/10/23 11:16 UA Specific [place] 1.015 Last Edit by Dee Lunaberlin Luna [facility] on 03/10/23 11:16 UA Ketone Negative Last Edit by Ede Lunaberlin Luna [facility] on 03/10/23 11:16 UA Bilirubin 0 mg/dL [facility] on 03/10/23 11:16 UA Glucose 0 mg/dL [facility], [facility] on 03/10/23 11:16 Results Reviewed Results Reviewed: Laboratory Last Values Urine pH (Auto) 7.0 03/10/23 11:15 Specific [place] (Auto) 1.015 03/10/23 11:15 Urine Protein (Auto) 15 mg/dL 03/10/23 11:15 Glucose (UA)(Auto) 0 mg/dL 03/10/23 11:15 Urine Ketones (Auto) Negative 03/10/23 11:15 Urine Blood (Auto) 0 Ayaz/uL 03/10/23 11:15 Urine Nitrite (Auto) Negative 03/10/23 11:15 Urine Bilirubin (Auto) 0 mg/dL 03/10/23 11:15 Urine Urobilinogen (Auto) 0.2 mg/dL 03/10/23 11:15 Leukocyte Esterase (Auto) 0 Jiaro/uL 03/10/23 11:15 Assessment & Plan Assessment & Plan (1) Erectile dysfunction: Code(s): N52.9 - Male erectile dysfunction, unspecified (2) History of urinary hesitancy: Code(s): Z87.898 - Personal history of other specified conditions Plan In office urinalysis results reviewed with the patient today; as noted above. Continue p.r.n. Viagra as discussed and prescribed. Start Flomax as discussed and prescribed. Discussed at length potential causes for urinary hesitancy as well as erectile dysfunction. Discussed and stressed the importance of lifestyle modifications to assist with ED for overall health and well-being. Discussed, educated, and stressed the importance of limiting cigarette smoking for overall health and well-being. Discussed possible near future retroperitoneal ultrasound as well as in office cystoscopy for further assessment evaluation. Follow-up in 6 weeks with PVR; or sooner with any issues, concerns, and or questions. Orders: Orders AMB Urinalysis Automated 03/10/23 R33.9 - Retention of urine, unspecified Medications: New tamsulosin (Flomax) 0.4 mg PO BEDTIME 30 days 30 caps 1RF N40.0 - Benign prostatic hyperplasia without lower urinary tract symptoms Refilled sildenafil (Viagra) [facility] [id number] [facility] Group DR33 100 mg PO DAILY 90 days 90 tabs 0RF Patient Instructions: The patient had an opportunity to ask questions regarding the treatment plan. All questions were answered. Physical exam, labs, and imaging were discussed and reviewed in detail. As well as risks, benefits, and discussion of treatment choices. No major barriers to understanding were identified. The patient expressed understanding and agreement with the above treatment plan. The patient was made aware they should contact our office by phone for worsening of their current condition, the appearance of new symptoms, or with any questions or concerns. Compliance is encouraged with any medications and follow up testing that is ordered. It is a privilege to be allowed the opportunity to participate in? your urological care.? Again, if you have any questions or concerns If you have any questions or concerns please do not hesitate to contact me. The office is [phone]. This note is constructed using voice recognition software. While every effort has been made to ensure accuracy leather coverer errors may have been included. Yours sincerely, FLACO Shaw Coding Level of Care Code Est Pt Level 4 (44232) Diagnoses Erectile dysfunction N52.9 History of urinary hesitancy Z87.898
== END 2023-03-10 11:39 | disposition home or self-care (01) ==
PROVIDERS: PCP Internal Medicine; Visit Provider Nurse Practitioner Family
DX: N52.9 Male erectile dysfunction, unspecified (principal); Z87.898 Personal history of other specified conditions
CPT/HCPCS: 99214

== ENCOUNTER → 2023-03-10 10:32 | Outpatient (BNVA) | payer OTHER, SELFPAY | PROVIDERS: PCP Internal Medicine; Visit Provider Nurse Practitioner Family | DX: N52.9 Male erectile dysfunction, unspecified (principal); R33.9 Retention of urine, unspecified; Z87.898 Personal history of other specified conditions | CPT/HCPCS: 81003; 99212 ==

== ENCOUNTER 2023-03-16 06:32 | Outpatient (REF) | payer OTHER, SELFPAY ==
[2023-03-16 11:16] LABS: MANUAL DIFF FLAG NO
[2023-03-16 11:42] LABS: Basophils Percent Auto 0.5 % (0-2); Eosinophils Absolute Auto 0.2 X10*3/uL (0.0-0.4); Eosinophils Percent Auto 3.7 % (0-4); Hematocrit 47.9 % (42.0-52.0); Hemoglobin 15.7 g/dl (14.0-18.0); Imm Gran Abs Auto 0.02 X10*3/uL (0.00-0.03); Imm Gran Pct Auto 0.3 % (0.0-0.4); Lymphocytes Absolute Auto 2.6 X10*3/uL (1.2-4.9); Lymphocytes Percent Auto 39.3 % (20-40); Mean Corpuscular HGB Conc 32.8 g/dl (31.0-36.0); Mean Corpuscular Hemoglobin 29.1 pg (27.0-33.0); Mean Corpuscular Volume 88.7 fL (80.0-98.0); Mean Platelet Volume 10.6 fL (9.4-12.4); Monocytes Absolute Auto 0.4 X10*3/uL (0.1-1.2); Monocytes Percent Auto 6.1 % (2-11); Neutrophils Absolute Auto 3.3 x10*3/uL (2.0-8.3); Neutrophils Percent Auto 50.1 % (45-73); Platelet Count 303 X10*3/uL (160-400); Red Cell Distribution Width 13.3 % (11.0-16.0); White Blood Count 6.6 X10*3/uL (4.8-10.8)
[2023-03-16 12:15] LABS: Alanine Aminotransferase 15 U/L (0-40); Albumin Level 3.8 g/dL (3.5-5.0); Alkaline Phosphatase 61 U/L (39-117); Anion Gap 11 (12-20); Aspartate Amino Transferase 16 U/L (5-37); Bilirubin Total 0.4 mg/dL (0.0-1.0); Blood Urea Nitrogen 8 mg/dL (9-16); Calcium 8.7 mg/dL (8.4-10.2); Carbon Dioxide 26 mmol/L (22-29); Chloride 106 mmol/L (96-108); Cholesterol 221 mg/dL (<200); Estimated Glomerular Filt Rate > 60; Glucose Fasting 108 mg/dL (60-99); HDL Cholesterol 50 mg/dL (>40); LDL Cholesterol Calculated 143 mg/dL (<100); Potassium 4.2 mmol/L (3.3-5.1); Sodium 139 mmol/L (135-145); Total Protein 7.3 g/dL (6.5-8.0); Triglycerides 144 mg/dL (<150)
[2023-03-16 12:17] LABS: TSH reflex Free T4 1.69 uIU/mL (0.32-4.0)
== END 2023-03-16 06:33 | disposition home or self-care (01) ==
LOC: HO.HMGCLDS 06:32
PROVIDERS: PCP Internal Medicine; Visit Provider Internal Medicine
DX: Z00.00 Encounter for general adult medical examination without abnormal findings (principal); R25.1 Tremor, unspecified; E78.5 Hyperlipidemia, unspecified
CPT/HCPCS: 36415; 80053; 80061; 84443; 85025

== ENCOUNTER 2023-03-27 08:08 | Outpatient (REF) | payer OTHER, SELFPAY ==
--- NOTE | ~2023-03-27 | XR_ITS ---
EXAMINATION: XR BILATERAL HIPS WITH AP PELVIS CLINICAL INFORMATION: Pain in right hip. COMPARISON: 10/23/2018 left hip radiographs. 02/29/2016 right hip radiographs. TECHNIQUE: AP view of the pelvis and AP and frog lateral views of each hip were obtained. FINDINGS: Degenerative changes in the imaged lower lumbar spine. Mild degenerative changes in the bilateral sacroiliac joints. Right Hip: Minimal degenerative changes in the right hip. Alignment preserved. Left Hip: Mild degenerative changes with joint space narrowing and hypertrophic change in the left hip. XR/XR hip BI w PEL1V IMPRESSION: 1. Mild degenerative changes in the left hip. 2. Minimal degenerative changes in the right hip. 3. Degenerative changes in the imaged lower lumbar spine. 4. Mild degenerative changes in the bilateral sacroiliac joints. 5. MRI could be considered for further evaluation if there is clinical concern for underlying bony lesion or fracture.
== END 2023-03-27 08:09 | disposition home or self-care (01) ==
LOC: HO.HMGCX 08:08
PROVIDERS: PCP Internal Medicine; Visit Provider Internal Medicine
DX: M25.551 Pain in right hip (principal); M25.552 Pain in left hip
CPT/HCPCS: 73521

== ENCOUNTER 2023-04-04 12:38 | Outpatient (REF) | payer OTHER, SELFPAY ==
--- NOTE | ~2023-04-04 | CT_ITS ---
EXAMINATION: CT CHEST SCREENING CLINICAL INFORMATION: Nicotine dependence. COMPARISON: CT lung screening 03/10/2022. TECHNIQUE: Multidetector volumetric CT imaging of the chest is performed without contrast using low dose technique. Additional 2D coronal and sagittal reformatted images and axial 3D maximum intensity projection (MIP) images are generated on the CT workstation. This CT examination was performed using dose optimization techniques as appropriate, variously including the following: *Automated exposure control *Adjustment of mA and/or kV according to patient size (this includes techniques or standardized protocols for targeted exams where dose is matched to indication/reason for exam; i.e. extremities or head) *Use of iterative reconstruction technique DLP: 94 mGy-cm FINDINGS: LUNGS: Some very mild emphysematous changes are present, most marked at the apices. Mild peribronchial thickening is present. A few scattered pulmonary nodular densities are seen most of which represent inspissated mucus in some bronchi. The lungs are clear with no evidence of inflammation or worrisome or concerning nodules. MEDIASTINUM: The mediastinum is normal. CORONARY ARTERY CALCIFICATION: None visualized on this study. PLEURA: There is no pleural effusion. No pleural mass or thickening. AXILLA: No lymphadenopathy. UPPER ABDOMEN: Unremarkable OSSEOUS STRUCTURES: Unremarkable. CT/CT lung screening IMPRESSION: Unremarkable examination. ASSESSMENT: Lung-RADS category 2: Benign RECOMMENDATION: Routine annual low-dose CT screening in 12 months.
== END 2023-04-04 12:39 | disposition home or self-care (01) ==
LOC: HO.CT 12:38
PROVIDERS: PCP Internal Medicine; Visit Provider Nurse Practitioner Family
DX: Z12.2 Encounter for screening for malignant neoplasm of respiratory organs (principal); F17.210 Nicotine dependence, cigarettes, uncomplicated
CPT/HCPCS: 71271

== ENCOUNTER 2023-04-05 09:00 | Outpatient (RCR) | payer OTHER, SELFPAY ==
--- NOTE | 2023-03-29 09:49 | MHC.PT.EP ---
[facility] [place] Office [place] Office [place] Office [address] Munir Cummings [address] [phone] F: [phone] F: [phone] F: [phone] F: [phone] Physical Therapy Plan of Care Date of Evaluation: 03/29/23 Date of Surgery: Diagnosis: This is a 57 male presenting to skilled PT with a script for hip pain, B. Assessment: This is a 57 male presenting to skilled PT with a script for hip pain, B. Patient reporting pain started about a month and pain started insidiously but he thinks that his back caused this (this is another issue and has been ongoing, he reports that his back is why he is disabled). Pain is located R lateral hip and is described as achy. Denies radiating symptoms. Pain increases with walking, standing, sitting. No positions make his pain better. His pain comes and goes. Assessment reveals pain that ranges from up to a 4/10 at the worst. Patient demos decreased BLE ROM (R > L), strength of BLE's (R>L), core and back, TTP at illiac crest on the R and impaired posture with forward head and rounded shoulders. Based on functional limitations, impaired QOL and pain tolerance patient is a good candidate for skilled PT 2x/wk for 4wks. Frequency and Duration: The patient will be seen 2x/wk for 4wks Short Term Goals: Pt will demonstrate improved postural awareness and understanding of core engagement with supine and standing tasks without cues throughout session to improve overall back/hip safety in 2 weeks. Pt will demo proper transfers supine<>sit and sit<>stand without cues from PT in 2 weeks Alf Goals: Pt will demo equal ROM and MMT B hips in 4wks Pt will demonstrate ability to bend and lift WNL min to no pain for household tasks in 4 wks. Pt will be I in HEP and compliant in 4wks Pt will improve pain to no more than 2/10 in 4wks Treatment Plan: Modalities to reduce pain, spasms and effusion. Manual therapy to restore motion and function. Therapeutic exercise to improve strength and flexibility. Neuromuscular re-education for posture and balance. Therapeutic activities to return to functional activities of daily living. Electronically signed by: Vicenta Oconnor PT Please sign and return to therapist. Thank you for your referral.
--- NOTE | 2023-05-04 09:29 | MHC.PT.DC ---
[facility] [place] Office [place] Office [place] Office [address] Munir Cummings [address] [phone] F: [phone] F: [phone] F: [phone] F: [phone] Physical Therapy Discharge Report Diagnosis: This is a 57 male presenting to skilled PT with a script for hip pain, B. Date of Surgery: Date of Evaluation: 03/29/23 Date of Discharge: 05/04/23 Treatments to Date: 2 Cancellations to Date: 0 No Shows to Date: 0 Discharge Status: Patient Elected to Stop Discharge Summary: 04/05: Continued POC, reviewed HEP and started with MH which he enjoyed. Utilized parts interpreter on IPAD. No increase in symptoms reported however did not sensations of stretching the muscle. Although he did not have pain throughout the session, I did note areas of tenders throughout his QL when I assessed with manual. Patient did not return for further treatment. Chart was DC'd after 30 days. Electronically signed by: Vicenta Oconnor PT Please sign and return to therapist. Thank you for your referral.
== END 2023-05-04 09:29 | disposition home or self-care (01) ==
LOC: HO.PTCHIC 09:00
PROVIDERS: PCP Internal Medicine; Visit Provider Internal Medicine
DX: M25.551 Pain in right hip (principal); M25.552 Pain in left hip
CPT/HCPCS: 97110; 97140; 97162

== ENCOUNTER 2023-04-21 10:46 | Outpatient (AMB) | payer OTHER, SELFPAY ==
--- NOTE | 2023-04-21 11:09 | A.OFFVIS_ITS ---
Intake Intake Visit Reasons: 6w follow up/PVR Intake Note: Patient presents today for follow up BPH and erectile Dysfunction Urology Medications: Sildenafil, Tamsulosin Allergies to Antibiotic: No Known Allergies Blood Thinner: Aspirin PVR: 13ml's Towel Folder Required: Yes Towel Folder Name: CLAUDETTE SPRINGERLEW Accompanied by: Self / Same As Patient Allergies No Known Allergies [No Known Allergies*] Allergy (Verified 04/21/23 12:47) Medication List - Last Reconciled 04/21/23 by GERMÁN Shaw- aripiprazole (Abilify) 2 mg PO DAILY aspirin 81 mg PO DAILY cholecalciferol (vitamin D3) 50 mcg PO DAILY cyclobenzaprine 10 mg PO .prn mirtazapine 45 mg PO BEDTIME pantoprazole 40 mg PO DAILY pravastatin 80 mg PO DAILY sennosides (senna) 17.2 mg (2 x 8.6 mg) PO BEDTIME 30 days sildenafil (Viagra) 100 mg PO DAILY 90 days tamsulosin (Flomax) 0.4 mg PO BEDTIME 90 days zolpidem (Ambien) 10 mg PO BEDTIME PRN HPI HPI Comments History of Present Illness Details Chapo is a pleasant 57-year-old male patient of Dr. Collier. He has a past medical history of sleep apnea, tobacco dependence, schizophrenia, scoliosis, hyperlipidemia, GERD, spondylosis, anxiety, and depression. Patient presents to the office for follow-up regarding erectile dysfunction and urinary hesitancy.. In discussion with the patient today reports to be doing and feeling well. He reports significant improvement in urinary hesitancy on Flomax 0.4 mg daily. He also reports 100 mg of Viagra as needed 1 hour prior to sexual activity has been working well to obtain and maintain his erections. Previous workup for his erectile dysfunction has included PSA 12/05--0.6, total testosterone 06/05--450, and free testosterone 06/05--63.9. He has previously trialed low-dose Cialis daily as well as PRN dosing with no improvement. Discussed at length importance of healthy eating habits, exercise daily, limiting/quitting smoking and adequate sleep for overall health and well-being as well as to assist with erectile dysfunction. In office urinalysis results reviewed with the patient today. PVR 13 mL. He otherwise denies urinary urgency, urinary frequency, incontinence, nocturia, hematuria, dysuria, foul smelling urine, changes to urinary stream, flank pain, fever, and or chills. He offers no other issues or concerns at this time. [facility] Medical History Annual physical exam Sleep apnea Tobacco dependence Schizophrenia Primary hypogonadism in male Right knee pain Scoliosis Hyperlipidemia GERD (gastroesophageal reflux disease) Spondylosis Carotid artery aneurysm Dextroscoliosis Depression Anxiety Surgical History History of surgery on arm History of esophagogastroduodenoscopy (EGD) H/O colonoscopy Family History Father No problems noted. Mother Breast cancer Brother Mental health disorder PTSD (post-traumatic stress disorder) Social History Household Members: Family Housing: Apartment Are you a primary rn homecare to a significant other at home: No Do you presently have visiting nurse or other home services: Yes Alcohol intake: current Alcohol intake frequency: does not drink Patient Tobacco Use Status: Current everyday Tobacco user Tobacco use type: Cigarette Cigarettes Per Day: 3 e-Cigarette/Vaping Use: Never Used Second Hand Smoke Exposure: No Advance Directives Date on File: 11/20/19 service: No Current occupational status: unemployed Current occupational exposures/hazards: No Cognitive needs: No Hearing needs: No Vision needs: Yes Review of Systems Const Reports as per [facility] Eyes Reports no additional complaints ENT Reports no additional complaints Card Reports as per [facility] Resp Reports as per HPI GI Reports as per HPI Reports as per HPI Musc Reports as per [facility] Neuro Reports as per HPI Psych Reports as per HPI Endo Reports no additional complaints Physical Exam Const General: cooperative, healthy appearing, comfortable, no acute distress, well developed, alert and awake Nutritional Appearance: average body habitus Orientation/consciousness: patient oriented x3 Limitations: no limitations HEENT Head: Yes normal to inspection, Yes normocephalic and Yes atraumatic Ears: hearing grossly normal bilaterally Eyes General: appearance normal, both eyes and all related structures Neck Neck: Yes normal visual inspection and Yes trachea midline Chest Chest palpation & inspection: normal inspection of the chest Resp Effort & Inspection: normal respiratory effort and able to speak in complete sentences Cardio Rate: regular rate GI Inspection: Yes normal to inspection General: Yes no CVA tenderness Back/Spine/Pelvis Back: no CVA tenderness Skin General skin exam: no rashes or lesions noted Neuro General: patient oriented x3 Extrem General: Yes normal to inspection and Yes full ROM Psych Appearance: grossly normal and well kempt Mental Status: mental status grossly normal Speech and movement: Normal speech and movement present and Clear speech present Affect: normal affect Attitude: cooperative Thought process: Normal thought process present Thought content: Normal thought content present Insight: Fair insight present (Psych) Judgement: Fair judgement present (Psych) Office Procedures Post Void Residual Post Residual Void Post Void Residual (PVR): 13 44775-Arej Void Residual by ultrasound Results AMB Urinalysis, Automated UA Leukoctes 0 Jairo/uL Last Edit by [facility] on 04/21/23 11:28 UA Nitrite Negative Last Edit by [facility] on 04/21/23 11:28 UA Urobilinogen 0.2 mg/dL Last Edit by [facility] on 04/21/23 11:28 UA Protein 0 mg/dL Last Edit by [facility] on 04/21/23 11:28 UA pH 6.0 Last Edit by [facility] on 04/21/23 11:28 UA Blood 0 Ayaz/uL Last Edit by [facility] on 04/21/23 11:28 UA Specific [place] 1.025 Last Edit by [facility] on 04/21/23 11:28 UA Ketone Negative Last Edit by [facility] on 04/21/23 11:28 UA Bilirubin 0 mg/dL Last Edit by [facility] on 04/21/23 11:28 UA Glucose 0 mg/dL Last Edit by [facility] on 04/21/23 11:28 Results Reviewed Results Reviewed: Laboratory Last Values Urine pH (Auto) 6.0 04/21/23 11:16 Specific [place] (Auto) 1.025 04/21/23 11:16 Urine Protein (Auto) 0 mg/dL 04/21/23 11:16 Glucose (UA)(Auto) 0 mg/dL 04/21/23 11:16 Urine Ketones (Auto) Negative 04/21/23 11:16 Urine Blood (Auto) 0 Ayaz/uL 04/21/23 11:16 Urine Nitrite (Auto) Negative 04/21/23 11:16 Urine Bilirubin (Auto) 0 mg/dL 04/21/23 11:16 Urine Urobilinogen (Auto) 0.2 mg/dL 04/21/23 11:16 Leukocyte Esterase (Auto) 0 Jairo/uL 04/21/23 11:16 Assessment & Plan Assessment & Plan (1) Erectile dysfunction: Code(s): N52.9 - Male erectile dysfunction, unspecified (2) History of urinary hesitancy: Code(s): Z87.898 - Personal history of other specified conditions Plan In office urinalysis results reviewed with the patient today; as noted above. PVR 13 mL. Continue p.r.n. Viagra as discussed and prescribed. Continue Flomax 0.4 mg daily as discussed and prescribed; refill provided Patient reports be happy with current voiding parameters. Discussed at length potential causes for urinary hesitancy as well as erectile dysfunction. Discussed and stressed the importance of lifestyle modifications to assist with ED as well as for overall health and well-being. Discussed, educated, and stressed the importance of limiting cigarette smoking for overall health and well-being. Discussed possible near future retroperitoneal ultrasound as well as in office cystoscopy for further assessment evaluation if symptoms arise. Follow-up in 6 months with PVR and PSA to be completed prior; or sooner with any issues, concerns, and or questions. Orders: Orders AMB Urinalysis Automated 04/21/23 Z13.9 - Encounter for screening, unspecified Prostate Specific Antigen 6 Months N40.0 - Benign prostatic hyperplasia without lower urinary tract symptoms AMB Post Void Residual by ultrasound 04/21/23 Z87.898 - Personal history of other specified conditions Medications: Changed From tamsulosin (Flomax) 0.4 mg PO BEDTIME 30 days 30 caps 1RF N40.0 - Benign prostatic hyperplasia without lower urinary tract symptoms To tamsulosin (Flomax) 0.4 mg PO BEDTIME 90 days 90 caps 2RF N40.0 - Benign prostatic hyperplasia without lower urinary tract symptoms Refilled sildenafil (Viagra) BIN [id number] [facility] Group DR33 100 mg PO DAILY 90 days 90 tabs 0RF Patient Instructions: The patient had an opportunity to ask questions regarding the treatment plan. All questions were answered. Physical exam, labs, and imaging were discussed and reviewed in detail. As well as risks, benefits, and discussion of treatment choices. No major barriers to understanding were identified. The patient expressed understanding and agreement with the above treatment plan. The patient was made aware they should contact our office by phone for worsening of their current condition, the appearance of new symptoms, or with any questions or concerns. Compliance is encouraged with any medications and follow up testing that is ordered. It is a privilege to be allowed the opportunity to participate in? your urological care.? Again, if you have any questions or concerns If you have any questions or concerns please do not hesitate to contact me. The office is [phone]. This note is constructed using voice recognition software. While every effort has been made to ensure accuracy corporate associate attorney errors may have been included. Yours sincerely, FLACO Shaw Coding Level of Care Code Est Pt Level 3 (17058) Diagnoses Erectile dysfunction N52.9 History of urinary hesitancy Z87.898 CPT Codes Post Residual Void - PVR CPT Code: 30604-Pwme Void Residual by ultrasound ([id number])
== END 2023-04-21 11:52 | disposition home or self-care (01) ==
PROVIDERS: PCP Internal Medicine; Visit Provider Nurse Practitioner Family
DX: N52.9 Male erectile dysfunction, unspecified (principal); Z87.898 Personal history of other specified conditions
CPT/HCPCS: 99213

== ENCOUNTER → 2023-04-21 10:46 | Outpatient (BNVA) | payer OTHER, SELFPAY | PROVIDERS: PCP Internal Medicine; Visit Provider Nurse Practitioner Family | DX: N52.9 Male erectile dysfunction, unspecified (principal); Z87.898 Personal history of other specified conditions | CPT/HCPCS: 51798; 81003; 99212 ==

== ENCOUNTER 2023-05-31 09:03 | Outpatient (REF) | payer OTHER, SELFPAY | END 2023-05-31 09:04 | disposition home or self-care (01) | LOC: HO.BBR 09:03 | PROVIDERS: PCP Internal Medicine; Visit Provider Internal Medicine | DX: D75.1 Secondary polycythemia (principal) | CPT/HCPCS: 85014; 85018; 99195 ==

== ENCOUNTER 2023-06-15 10:44 | Outpatient (AMB) | payer OTHER, SELFPAY ==
--- NOTE | 2023-06-15 10:48 | MHC.OFFVIS ---
Vital Signs 06/15/23 10:51 Height 5 ft 6 in Weight 167 lb 8.821 oz BMI 27.0 BP 137/84 Blood Pressure Location Rt brachial Position Sitting Pulse 88 Intake Visit Reasons: 6 Month Follow up CIC, GERD Intake Note: Patient presents to in office visit today in 6 months follow up of GERD. CC: Patient reports occasional acid heartburn. Denies other GI symptoms today. 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 He continues on his pantoprazole 40 mg once a day. He will have some mild GERD at bedtime, and I explain that there can be a fade of the effect of the PPI after 12 hours for some people, but since his sx are mild I suggest he keep TUMS on hand for this. His CIC is has been doing well and he has not needed the senna recently. ROV 6 mos. (2) Chronic idiopathic constipation: Code(s): K59.04 - Chronic idiopathic constipation (3) H pylori ulcer: Comment: Stool antigen 09/30/2019 3-after treatment Code(s): K27.9 - Peptic ulcer, site unspecified, unspecified as acute or chronic, without hemorrhage or perforation; B96.81 - Helicobacter pylori [H. pylori] as the cause of diseases classified elsewhere Medications: Refilled pantoprazole 40 mg PO DAILY 30 tabs 6RF sennosides (senna) 17.2 mg (2 x 8.6 mg) PO BEDTIME 60 caps 6RF constipation 30 days K59.04 - Chronic idiopathic constipation TODAY'S VISIT BHUTANESE #Nancy, Live He is now taking the pantorpazole bid and only occasionally has breakthrough GERD and HB. he also has senna for occasional CIC. ROV 6 mos. [facility] Medical History (Reviewed 04/23/23 @ 05:[address] [facility] [place]) Annual physical exam Sleep apnea Tobacco dependence Schizophrenia Primary hypogonadism in male Right knee pain Scoliosis Hyperlipidemia GERD (gastroesophageal reflux disease) Spondylosis Carotid artery aneurysm Dextroscoliosis Depression Anxiety Surgical History History of surgery on arm History of esophagogastroduodenoscopy (EGD) H/O colonoscopy Family History Father No problems noted. Mother Breast cancer Brother Mental health disorder PTSD (post-traumatic stress disorder) Social History Household Members: Family Housing: Apartment Are you a primary caregiver services home to a significant other at home: No Do you presently have visiting nurse or other home services: Yes Alcohol intake: current Alcohol intake frequency: does not drink Patient Tobacco Use Status: Current everyday Tobacco user Tobacco use type: Cigarette Cigarettes Per Day: 3 e-Cigarette/Vaping Use: Never Used Second Hand Smoke Exposure: No Advance Directives Date on File: 11/20/19 service: No Current occupational status: unemployed Current occupational exposures/hazards: No Cognitive needs: No Hearing needs: No Vision needs: Yes Review of Systems Const Denies fatigue, Denies fever(s), Denies night sweats, Denies poor appetite and Denies weight loss ENT Reports Normal hearing present, Denies dental pain, Denies dysphagia, Denies hearing loss, Denies mouth pain, Denies odynophagia, Denies throat swelling, Denies tongue swelling and Reports other (Dentition adequate) Card Reports no additional complaints Resp Reports no additional complaints GI Details: Denies abdominal pain, Denies melena, Denies bloating, Denies hematochezia, Reports constipation, Denies GI cramping, Denies dysphagia, Denies excessive flatus, Denies early satiety, Reports heartburn, Denies diarrhea, Denies nausea, Denies odynophagia, Denies vomiting and Denies hematemesis Skin/Breast Denies pruritus, Denies lesions, Denies rash and Denies jaundice Neuro Reports Normal hearing present and Denies Abnormal speech present Endo Denies fatigue Aller/Immun Denies throat swelling and Denies tongue swelling Physical Exam Vital Signs: Last Vital Signs Pulse 88 06/15/23 10:51 BP 137/84 06/15/23 10:51 BMI result Body Mass Index 27.0 Const General: cooperative, no acute distress, well developed and well groomed Nutritional Appearance: average body habitus and well nourished Orientation/consciousness: oriented to person, oriented to place and oriented to time Limitations: language barrier HEENT Head: Yes normocephalic and Yes atraumatic Eyes General: appearance normal, both eyes and all related structures Pupils: Equal, round and reactive pupils present Neck Neck: Yes normal visual inspection and Yes no lymphadenopathy Thyroid: Thyroid normal Resp Effort & Inspection: normal respiratory effort and able to speak in complete sentences Auscultation: clear to auscultation bilaterally Cardio Rate: regular rate Rhythm: regular rhythm Heart sounds: Normal, physiologic split S2 sound present Peripheral pulses: radial pulses present and posterior tibial pulses present GI Inspection: No distended and No Abdominal panniculus present Palpation (GI): Soft to palpation, nontender, no guarding, not rigid and No hepatosplenomegaly present Percussion: Yes normal to percussion Auscultation: normal bowel sounds Rectal Exam - Male: Yes deferred Skin General skin exam: no rashes or lesions noted, turgor normal, skin not dry, no jaundice, No spider nevi and no striae Rashes: no rashes Nails: normal Neuro General: oriented to person, oriented to place and oriented to time Cranial nerves: Yes Equal, round and reactive pupils present and Yes Normal hearing present Speech: No Abnormal speech present Extrem General: Yes normal to inspection, No clubbing, No cyanosis and No edema Psych Appearance: grossly normal and well kempt Mental Status: mental status grossly normal Speech and movement: Normal speech and movement present Affect: normal affect Attitude: cooperative Thought process: Normal thought process present and not confabulating Thought content: Normal thought content present Insight: Fair insight present (Psych) Judgement: Fair judgement present (Psych) Assessment & Plan Assessment & Plan (1) Chronic idiopathic constipation: Code(s): K59.04 - Chronic idiopathic constipation Category: Medical (2) GERD (gastroesophageal reflux disease): Code(s): K21.9 - Gastro-esophageal reflux disease without esophagitis Category: Medical Plan BHUTANESE #Nancy, Live He is now taking the pantorpazole bid and only occasionally has breakthrough GERD and HB. he also has senna for occasional CIC. ROV 6 mos. Coding Level of Care Code Est Pt Level 3 (29608) Diagnoses Chronic idiopathic constipation K59.04 GERD (gastroesophageal reflux disease) K21.9
[2023-06-15 10:51] VITALS: BP 137/84; PULSE 88; BMI 27.0
== END 2023-06-15 11:11 | disposition home or self-care (01) ==
PROVIDERS: PCP Internal Medicine; Visit Provider Nurse Practitioner
DX: K59.04 Chronic idiopathic constipation (principal); K21.9 Gastro-esophageal reflux disease without esophagitis
CPT/HCPCS: 99213

== ENCOUNTER → 2023-06-15 10:44 | Outpatient (BNVA) | payer OTHER, SELFPAY | PROVIDERS: PCP Internal Medicine; Visit Provider Nurse Practitioner | DX: K59.04 Chronic idiopathic constipation (principal); K21.9 Gastro-esophageal reflux disease without esophagitis | CPT/HCPCS: 99212 ==

== ENCOUNTER 2023-08-12 11:25 | Outpatient (AMB) | payer OTHER, SELFPAY ==
[2023-08-12 11:31] VITALS: BP 118/60; PULSE 70; TEMP 36.6; O2SAT 97; BMI 26.8
--- NOTE | 2023-08-12 11:31 | MHC.OFFWIV ---
Intake Vital Signs 08/12/23 11:31 Height 5 ft 6 in Weight 166 lb BMI 26.8 BP 118/60 Blood Pressure Location Lt brachial Position Sitting Pulse 70 Pulse Source Pulse Oximeter Temp 97.8 F Temp Source Temporal Artery Scan Pulse Oximetry (%) 97 Oxygen Delivery Method Room Air Intake Visit Reasons: EP Lt eye concerns Intake Note: pt is here today for lft eye started 1 week ago Patient Tobacco Use Status: Current everyday Tobacco user Allergies No Known Allergies [No Known Allergies*] Allergy (Verified 08/12/23 11:58) Do you need a note to return to daycare/school/sports/work: No HPI EP Lt eye concerns HPI Details Patient is a 57-year-old male who comes to the walk-in with his , has had skin growth over his left eyelid for many many years per . No apparent issues in the past, however patient is starting to feel like the growth is becoming irritated, mildly tender to the touch. No I issues, headache or dizziness, or other significant associated symptoms reported. No history of skin cancer given. [facility] Medical History Annual physical exam Sleep apnea Tobacco dependence Schizophrenia Primary hypogonadism in male Right knee pain Scoliosis Hyperlipidemia GERD (gastroesophageal reflux disease) Spondylosis Carotid artery aneurysm Dextroscoliosis Depression Anxiety Surgical History History of surgery on arm History of esophagogastroduodenoscopy (EGD) H/O colonoscopy Family History Father No problems noted. Mother Breast cancer Brother Mental health disorder PTSD (post-traumatic stress disorder) Social History Household Members: Family Housing: Apartment Are you a primary urgent care technician to a significant other at home: No Do you presently have visiting nurse or other home services: Yes Alcohol intake: current Alcohol intake frequency: does not drink Patient Tobacco Use Status: Current everyday Tobacco user Tobacco use type: Cigarette Cigarettes Per Day: 3 e-Cigarette/Vaping Use: Never Used Second Hand Smoke Exposure: No Advance Directives Date on File: 11/20/19 service: No Current occupational status: unemployed Current occupational exposures/hazards: No Cognitive needs: No Hearing needs: No Vision needs: Yes Physical Exam Vital Signs: Last Vital Signs Temp 97.8 F 08/12/23 11:31 Pulse 70 08/12/23 11:31 BP 118/60 08/12/23 11:31 Pulse Ox 97 08/12/23 11:31 Oxygen Delivery Method Room Air 08/12/23 11:31 BMI result Body Mass Index 26.8 Eyes Eyes/upper lids images: 1. fingerlike acrocordon upper eyelid Skin Other: good color, warm and dry skin. approximately 2mm fleshy normopigmented skin tag to medial aspect left eyelid. no gross erythema, omega or warmth surrounding Assessment & Plan Assessment & Plan (1) Inflamed acrochordon: Code(s): L91.8 - Other hypertrophic disorders of the skin Plan: Patient is a 57-year-old male with a small acrochordon over the left eyelid that is becoming irritated for him. We discussed having him see accounts payable coordinator likely can remove it. There was no gross evidence of inflammation, so likely it is just mild in nature and he can use topical hydrocortisone cream as needed until he gets into the accounts payable coordinator. Referral given today. Follow up sooner as needed with PCP. Orders: Referrals Dermatology Referral L91.8 - Other hypertrophic disorders of the skin Coding Level of Care Code Est Pt Level 3 (15741) Diagnoses Inflamed acrochordon L91.8
== END 2023-08-12 13:20 | disposition home or self-care (01) ==
PROVIDERS: PCP Internal Medicine; Visit Provider Physician Assistant Medical
DX: L91.8 Other hypertrophic disorders of the skin (principal)
CPT/HCPCS: 99213

== ENCOUNTER 2023-08-31 10:50 | Outpatient (AMB) | payer OTHER, SELFPAY ==
--- NOTE | 2023-08-31 10:55 | MHC.PC.OV ---
Vital Signs 08/31/23 10:56 Height 5 ft 6 in Weight 168 lb BMI 27.1 BP 104/66 Blood Pressure Location Rt brachial Position Sitting Pulse 70 Pulse Source Pulse Oximeter Pulse Oximetry (%) 96 Oxygen Delivery Method Room Air Intake Visit Reasons: 6 month follow up Intake Note: Pt is here today for 6 months follow up visit. Allergies No Known Allergies [No Known Allergies*] Allergy (Verified 08/31/23 10:57) Medication List - Last Reconciled 08/31/23 by Yaima Collier MD aripiprazole 5 mg PO DAILY aspirin 81 mg PO DAILY cholecalciferol (vitamin D3) 50 mcg PO DAILY cyclobenzaprine 10 mg PO .prn mirtazapine 45 mg PO BEDTIME pantoprazole 40 mg PO DAILY pravastatin 80 mg PO DAILY sennosides (senna) 17.2 mg (2 x 8.6 mg) PO BEDTIME 30 days sildenafil (Viagra) 100 mg PO DAILY 90 days tamsulosin (Flomax) 0.4 mg PO BEDTIME 90 days zolpidem (Ambien) 10 mg PO BEDTIME PRN Tobacco use date assessed: 08/31/23 Dental Screening Dental Screen Date: 03/02/23 HPI 6 month follow up HPI Details Pt presents for f/u hyperlipid, GERD, stable on meds. Patient follows up with a psychiatrist for chronic depression controlled on current medications. [facility] Medical History Annual physical exam Sleep apnea Tobacco dependence Schizophrenia Primary hypogonadism in male Right knee pain Scoliosis Hyperlipidemia GERD (gastroesophageal reflux disease) Spondylosis Carotid artery aneurysm Dextroscoliosis Depression Anxiety Surgical History History of surgery on arm History of esophagogastroduodenoscopy (EGD) H/O colonoscopy Family History Father No problems noted. Mother Breast cancer Brother Mental health disorder PTSD (post-traumatic stress disorder) Social History Household Members: Family Housing: Apartment Are you a primary adult live in caregiver to a significant other at home: No Do you presently have visiting nurse or other home services: Yes Alcohol intake: current Alcohol intake frequency: does not drink Patient Tobacco Use Status: Current everyday Tobacco user Tobacco use type: Cigarette Cigarettes Per Day: 3 e-Cigarette/Vaping Use: Never Used Second Hand Smoke Exposure: No Advance Directives Date on File: 11/20/19 service: No Current occupational status: unemployed Current occupational exposures/hazards: No Cognitive needs: No Hearing needs: No Vision needs: Yes Questionnaire PHQ-9 Over the last 2 weeks, how often have you been bothered by any of the following problems? 1. Little interest or pleasure in doing things: nearly every day 2. Feeling down, depressed, or hopeless: nearly every day 3. Trouble falling or staying asleep, or sleeping too much: several days 4. Feeling tired or having little energy: more than half the days 5. Poor appetite or overeating: not at all 6. Feeling bad about yourself - or that you are a failure or have let yourself or your family down: not at all 7. Trouble concentrating on things, such as reading the newspaper or watching television: not at all 8. Moving or speaking so slowly that other people could have noticed. Or the opposite - being so fidgety or restless that you have been moving around a lot more than usual: not at all 9. Thoughts that you would be better off or of hurting yourself in some way: not at all Total score: 9 Depression Screening Interpretation: Negative Depression Screening Done: Yes Source: Developed by Drs. Jatinder Mei, Jennifer Hidalgo, Peter Brooks and colleagues, with an educational desiree from [employer]. Thrive Questionnaire Date Thrive assessed: 08/31/23 I am a: Patient What is your living situation today?: I have a steady place to live Within the past 12 months, did the food you bought not last and you didn't have the money to get more?: I choose not to answer this question Within the past 12 months, did you worry whether your food would run out before you got money to buy more?: I choose not to answer this question Do you have trouble paying for medicines?: No Do you have trouble getting transportation to medical appointments?: No Do you have trouble paying your heating and electricity bill?: No Do you have trouble taking care of your child, family member or friend?: No Do you have trouble with day-to-day activities such as bathing, preparing meals, shopping, managing finances, etc.?: No Are you currently unemployed and looking for a job?: No Are you interested in more education?: No Please select the resources that you would like help with: Housing/Jail Currently or been in a relationship where the following occur: No concerns reported THRIVE Score: 0 AUDIT C Alcohol Use Questionnaire (AUDIT-C) 1. How often do you have a drink containing alcohol?: 2-4 times a month 2. How many drinks containing alcohol do you have on a typical day when you are drinking?: 5 or 6 3. How often do you have six or more drinks on one occasion?: Less than monthly Total Score: 5 WENDY-7 AMB Questionnaire WENDY-7 Date WENDY - 7 assessed: 08/31/23 Feeling nervous, anxious, or on edge: 1 = Several days Not being able to stop or control worryin = Not at all Worrying too much about different things: 0 = Not at all Trouble relaxin = Not at all Being so restless that it is hard to sit still: 0 = Not at all Becoming easily annoyed or irritable: 1 = Several days Feeling afraid as if something awful might happen: 0 = Not at all Total WENDY-7 score (0-4 normal; 5-9 mild; 10-14 moderate; 15-21 severe): 2 Source: Developed by Drs. Jatinder Mei, Jennifer Hidalgo, Peter Brooks and colleagues, with an educational desiree from [employer]. Review of Systems Const All systems reviewed & are unremarkable except as noted in HPI and below Reports no additional complaints Eyes Reports no additional complaints ENT Reports no additional complaints Card Reports no additional complaints Resp Reports no additional complaints GI Reports no additional complaints Reports no additional complaints Physical exam (Primary Care) Vital Signs: Last Vital Signs Pulse 70 08/31/23 10:56 BP 104/66 08/31/23 10:56 Pulse Ox 96 08/31/23 10:56 Oxygen Delivery Method Room Air 08/31/23 10:56 BMI result Body Mass Index 27.1 Tobacco/Smoking Status: Tobacco use Status Tobacco use date assessed 08/31/23 08/31/23 11:00 Patient Tobacco Use Status Current everyday Tobacco 08/31/23 10:57 Tobacco use type Cigarette 08/31/23 10:57 e-Cigarette/Vaping Use Never Used 08/31/23 10:57 PHQ-9: PHQ-9 Score PHQ-9: Total score 9 08/31/23 11:00 Depression Screening Interpretation: Negative Thrive Assessment: Date of Thrive Assessment Date Thrive assessed 08/31/23 08/31/23 11:00 Currently or been in a relationship where the following occur: No concerns reported Const General: no acute distress HENMT Head: Yes normal to inspection Eyes General: appearance normal, both eyes and all related structures Neck Neck: Yes supple Resp Effort & Inspection: normal respiratory effort Auscultation: clear to auscultation bilaterally Cardio Rhythm: regular rhythm Heart sounds: S1 normal heart sound present and S2 normal heart sound present GI Inspection: Yes normal to inspection Palpation (GI): Soft to palpation Percussion: Yes normal to percussion Auscultation: normal bowel sounds Assessment and Plan Assessment & Plan (1) GERD (gastroesophageal reflux disease): Code(s): K21.9 - Gastro-esophageal reflux disease without esophagitis Plan: Anti GERD diet discussed with the patient continue PPI (2) Hyperlipidemia: Code(s): E78.5 - Hyperlipidemia, unspecified Plan: Pravastatin has not been effective. Change pravastatin to Crestor 20 mg check lipid profile in 2 months (3) Polycythemia: Comment: Secondary to smoking and sleep apnea f/u Dr. Ruiz , negative SAMINA 2, treated with intermittent blood donations Code(s): D75.1 - Secondary polycythemia Plan: Follows up with security test engineer as needed (4) Tobacco dependence: Comment: screening lung CA negative 03/06, 03/07 Code(s): F17.200 - Nicotine dependence, unspecified, uncomplicated Plan: Tobacco quitting discussed with the patient follow-up with lung cancer screening program (5) Anxiety: Comment: Follows up with Psychiatry Code(s): F41.9 - Anxiety disorder, unspecified Plan: Continue current medications follow-up with the Psychiatry Orders: Orders Lipid Panel 2 Months D75.1 - Secondary polycythemia, E78.5 - Hyperlipidemia, unspecified, F17.200 - Nicotine dependence, unspecified, uncomplicated, K21.9 - Gastro-esophageal reflux disease without esophagitis Comprehensive [place]. Panel Fast 2 Months D75.1 - Secondary polycythemia, E78.5 - Hyperlipidemia, unspecified, F17.200 - Nicotine dependence, unspecified, uncomplicated, K21.9 - Gastro-esophageal reflux disease without esophagitis Complete Blood Count Auto Diff 2 Months D75.1 - Secondary polycythemia Comprehensive [place]. Panel Fast 5 Months D75.1 - Secondary polycythemia, E29.1 - Testicular hypofunction, E78.5 - Hyperlipidemia, unspecified, F41.9 - Anxiety disorder, unspecified Complete Blood Count Auto Diff 5 Months D75.1 - Secondary polycythemia, E29.1 - Testicular hypofunction, E78.5 - Hyperlipidemia, unspecified, F41.9 - Anxiety disorder, unspecified Hemoglobin A1c 5 Months D75.1 - Secondary polycythemia, E29.1 - Testicular hypofunction, E78.5 - Hyperlipidemia, unspecified, F41.9 - Anxiety disorder, unspecified Hemoglobin A1c 2 Months D75.1 - Secondary polycythemia, E78.5 - Hyperlipidemia, unspecified, F17.200 - Nicotine dependence, unspecified, uncomplicated, K21.9 - Gastro-esophageal reflux disease without esophagitis Lipid Panel 5 Months D75.1 - Secondary polycythemia, E29.1 - Testicular hypofunction, E78.5 - Hyperlipidemia, unspecified, F41.9 - Anxiety disorder, unspecified UA w Microscopic 5 Months D75.1 - Secondary polycythemia, E29.1 - Testicular hypofunction, E78.5 - Hyperlipidemia, unspecified, F41.9 - Anxiety disorder, unspecified Medications: New rosuvastatin 20 mg PO DAILY 90 tabs 2RF rosuvastatin 20 mg PO DAILY 90 tabs 2RF Discontinued pravastatin Discontinued Reason: Doctor's Order 80 mg PO DAILY 90 tabs 3RF Coding Level of Care Code Est Pt Level 4 (19997) Diagnoses GERD (gastroesophageal reflux disease) K21.9 Hyperlipidemia E78.5 Polycythemia D75.1 Tobacco dependence F17.200 Anxiety F41.9
[2023-08-31 10:56] VITALS: BP 104/66; PULSE 70; O2SAT 96; BMI 27.1
== END 2023-08-31 11:45 | disposition home or self-care (01) ==
PROVIDERS: PCP Internal Medicine; Visit Provider Internal Medicine
DX: K21.9 Gastro-esophageal reflux disease without esophagitis (principal); E78.5 Hyperlipidemia, unspecified; D75.1 Secondary polycythemia; F17.200 Nicotine dependence, unspecified, uncomplicated; F41.9 Anxiety disorder, unspecified
CPT/HCPCS: 99214

== ENCOUNTER 2023-10-19 12:05 | Outpatient (REF) | payer OTHER, SELFPAY ==
[2023-10-19 12:20] LABS: MANUAL DIFF FLAG NO
[2023-10-19 12:26] LABS: Basophils Absolute Auto 0.1 X10*3/uL (0.0-0.2); Basophils Percent Auto 0.6 % (0-2); Eosinophils Absolute Auto 0.3 X10*3/uL (0.0-0.4); Eosinophils Percent Auto 2.9 % (0-4); Hematocrit 48.5 % (42.0-52.0); Hemoglobin 16.6 g/dl (14.0-18.0); Imm Gran Abs Auto 0.03 X10*3/uL (0.00-0.03); Imm Gran Pct Auto 0.3 % (0.0-0.4); Lymphocytes Absolute Auto 3.2 X10*3/uL (1.2-4.9); Lymphocytes Percent Auto 35.2 % (20-40); Mean Corpuscular HGB Conc 34.2 g/dl (31.0-36.0); Mean Corpuscular Hemoglobin 29.6 pg (27.0-33.0); Mean Corpuscular Volume 86.5 fL (80.0-98.0); Mean Platelet Volume 9.8 fL (9.4-12.4); Monocytes Absolute Auto 0.4 X10*3/uL (0.1-1.2); Monocytes Percent Auto 4.8 % (2-11); Neutrophils Absolute Auto 5.1 x10*3/uL (2.0-8.3); Neutrophils Percent Auto 56.2 % (45-73); Platelet Count 251 X10*3/uL (160-400); Red Blood Count 5.61 X10*6/uL (4.60-5.80); Red Cell Distribution Width 15.1 % (11.0-16.0)
[2023-10-19 12:49] LABS: Alanine Aminotransferase 23 U/L (0-40); Albumin Level 3.8 g/dL (3.5-5.0); Alkaline Phosphatase 60 U/L (39-117); Anion Gap 11 (12-20); Aspartate Amino Transferase 18 U/L (5-37); Bilirubin Total 0.4 mg/dL (0.0-1.0); Blood Urea Nitrogen 8 mg/dL (9-16); Calcium 8.8 mg/dL (8.4-10.2); Carbon Dioxide 25 mmol/L (22-29); Chloride 108 mmol/L (96-108); Cholesterol 169 mg/dL (<200); Estimated Glomerular Filt Rate > 60; Glucose Fasting 94 mg/dL (60-99); HDL Cholesterol 46 mg/dL (>40); LDL Cholesterol Calculated 101 mg/dL (<100); Potassium 3.7 mmol/L (3.3-5.1); Sodium 140 mmol/L (135-145); Total Protein 7.1 g/dL (6.5-8.0); Triglycerides 114 mg/dL (<150)
[2023-10-19 13:08] LABS: Prostate Specific Antigen 0.52 ng/mL (<0.05-4.0)
== END 2023-10-19 12:06 | disposition home or self-care (01) ==
LOC: HO.LAB 12:05
PROVIDERS: Absent Provider Nurse Practitioner Family; PCP Internal Medicine; Visit Provider Internal Medicine
DX: N40.0 Benign prostatic hyperplasia without lower urinary tract symptoms (principal); E78.5 Hyperlipidemia, unspecified; R25.1 Tremor, unspecified; K21.9 Gastro-esophageal reflux disease without esophagitis; D75.1 Secondary polycythemia; Z12.5 Encounter for screening for malignant neoplasm of prostate
CPT/HCPCS: 36415; 80053; 80061; 84153; 85025

== ENCOUNTER 2023-10-23 10:22 | Outpatient (AMB) | payer OTHER, SELFPAY ==
--- NOTE | 2023-10-23 10:23 | MHC.OFFVIS ---
Intake Visit Reasons: 6m/PSA/PVR Intake Note: Patient presents today for follow up BPH and erectile Dysfunction Urology Medications: Sildenafil, Tamsulosin Allergies to Antibiotic: No Known Allergies Blood Thinner: Aspirin PVR: 19ml's Cable Mock Up Assembler Required: Yes Accompanied by: Self / Same As Patient Allergies No Known Allergies [No Known Allergies*] Allergy (Verified 10/23/23 10:54) Medication List - Last Reconciled 10/23/23 by BIANKA ShawP- aripiprazole 5 mg PO DAILY aspirin 81 mg PO DAILY cholecalciferol (vitamin D3) 50 mcg PO DAILY cyclobenzaprine 10 mg PO .prn mirtazapine 45 mg PO BEDTIME pantoprazole 40 mg PO DAILY rosuvastatin 20 mg PO DAILY sennosides (senna) 17.2 mg (2 x 8.6 mg) PO BEDTIME 30 days sildenafil (Viagra) 100 mg PO DAILY 90 days tamsulosin (Flomax) 0.4 mg PO BEDTIME 90 days zolpidem (Ambien) 10 mg PO BEDTIME PRN HPI Comments Details: Chapo is a pleasant 57-year-old male patient of Dr. Collier who was accompanied by his at today's office visit. He has a past medical history of sleep apnea, tobacco dependence, schizophrenia, scoliosis, hyperlipidemia, GERD, spondylosis, anxiety, and depression. Patient presents to the office for follow-up regarding erectile dysfunction and urinary hesitancy. In discussion with the patient today reports to be doing and feeling well. He reports significant improvement in urinary hesitancy on Flomax 0.4 mg daily. He also reports feeling as needed Viagra has been helpful with obtaining and maintaining his erections. Recent PSA results reviewed with the patient and his today as noted and trended below PSAs: 12/05 0.6, 11/06 0.5 Testosterone: 06/05 450 Free testosterone 06/05 63.9 Discussed at length importance of healthy eating habits, exercise daily, limiting/quitting smoking and adequate sleep for overall health and well-being as well as to assist with erectile dysfunction. In office urinalysis results reviewed with the patient today. PVR 19 mL. He otherwise denies urinary urgency, urinary frequency, incontinence, nocturia, hematuria, dysuria, foul smelling urine, changes to urinary stream, flank pain, fever, and or chills. He offers no other issues or concerns at this time. [facility] Medical History Annual physical exam Sleep apnea Tobacco dependence Schizophrenia Primary hypogonadism in male Right knee pain Scoliosis Hyperlipidemia GERD (gastroesophageal reflux disease) Spondylosis Carotid artery aneurysm Dextroscoliosis Depression Anxiety Surgical History History of surgery on arm History of esophagogastroduodenoscopy (EGD) H/O colonoscopy Family History Father No problems noted. Mother Breast cancer Brother Mental health disorder PTSD (post-traumatic stress disorder) Social History Household Members: Family Housing: Apartment Are you a primary healthcare advisory services manager to a significant other at home: No Do you presently have visiting nurse or other home services: Yes Alcohol intake: current Alcohol intake frequency: does not drink Patient Tobacco Use Status: Current everyday Tobacco user Tobacco use type: Cigarette Cigarettes Per Day: 3 e-Cigarette/Vaping Use: Never Used Second Hand Smoke Exposure: No Advance Directives Date on File: 11/20/19 service: No Current occupational status: unemployed Current occupational exposures/hazards: No Cognitive needs: No Hearing needs: No Vision needs: Yes Review of Systems Const Reports as per HPI Eyes Reports no additional complaints ENT Reports no additional complaints Card Reports as per [facility] Resp Reports as per [facility] GI Reports as per [facility] Reports as per [facility] Musc Reports as per [facility] Neuro Reports as per [facility] Psych Reports as per [facility] Endo Reports no additional complaints Physical Exam Const General: cooperative, healthy appearing, comfortable, no acute distress, well developed, alert and awake Nutritional Appearance: average body habitus Orientation/consciousness: patient oriented x3 Limitations: no limitations HEENT Head: Yes normal to inspection, Yes normocephalic and Yes atraumatic Ears: hearing grossly normal bilaterally Eyes General: appearance normal, both eyes and all related structures Neck Neck: Yes normal visual inspection and Yes trachea midline Chest Chest palpation & inspection: normal inspection of the chest Resp Effort & Inspection: normal respiratory effort and able to speak in complete sentences Cardio Rate: regular rate GI Inspection: Yes normal to inspection General: Yes no CVA tenderness Back/Spine/Pelvis Back: no CVA tenderness Skin General skin exam: no rashes or lesions noted Neuro General: patient oriented x3 Extrem General: Yes normal to inspection and Yes full ROM Psych Appearance: grossly normal and well kempt Mental Status: mental status grossly normal Speech and movement: Normal speech and movement present and Clear speech present Affect: normal affect Attitude: cooperative Thought process: Normal thought process present Thought content: Normal thought content present Insight: Fair insight present (Psych) Judgement: Fair judgement present (Psych) Office Procedures Post Void Residual Post Residual Void Post Void Residual (PVR): 19 15915-Nriy Void Residual by ultrasound Results AMB Urinalysis, Automated UA Leukoctes 0 Jairo/uL Last Edit by Letsgof[employer]inner [employer] on 10/23/23 10:47 UA Nitrite Last Edit by Frayman Grouptrina [employer] on 10/23/23 10:47 UA Urobilinogen 0.2 mg/dL Last Edit by Letsgofordinner [employer] on 10/23/23 10:47 UA Protein 0 mg/dL Last Edit by [employer] on 10/23/23 10:47 UA pH 6.0 Last Edit by [employer]sgof[employer]inner [employer] on 10/23/23 10:47 UA Blood 0 Ayaz/uL Last Edit by [employer] on 10/23/23 10:47 UA Specific [place] 1.020 Last Edit by [employer] on 10/23/23 10:47 UA Ketone Negative Last Edit by [employer] on 10/23/23 10:47 UA Bilirubin 0 mg/dL Last Edit by [employer] on 10/23/23 10:47 UA Glucose 0 mg/dL Last Edit by [employer] on 10/23/23 10:47 Results Reviewed Results Reviewed: Laboratory Last Values Urine pH (Auto) 6.0 10/23/23 10:26 Specific [place] (Auto) 1.020 10/23/23 10:26 Urine Protein (Auto) 0 mg/dL 10/23/23 10:26 Glucose (UA)(Auto) 0 mg/dL 10/23/23 10:26 Urine Ketones (Auto) Negative 10/23/23 10:26 Urine Blood (Auto) 0 Ayaz/uL 10/23/23 10:26 Urine Bilirubin (Auto) 0 mg/dL 10/23/23 10:26 Urine Urobilinogen (Auto) 0.2 mg/dL 10/23/23 10:26 Leukocyte Esterase (Auto) 0 Jairo/uL 10/23/23 10:26 Assessment & Plan Assessment & Plan (1) Erectile dysfunction: Code(s): N52.9 - Male erectile dysfunction, unspecified Category: Medical (2) History of urinary hesitancy: Code(s): Z87.898 - Personal history of other specified conditions Category: Medical Plan In office urinalysis results reviewed with the patient today; as noted above. PVR 19 mL. Recent PSA results reviewed with the patient today. Continue p.r.n. Viagra as discussed and prescribed. Continue Flomax 0.4 mg daily as discussed and prescribed; refill provided Patient reports be happy with current voiding parameters. Discussed at length potential causes for urinary hesitancy as well as erectile dysfunction. Discussed and stressed the importance of lifestyle modifications to assist with ED as well as for overall health and well-being. Discussed, educated, and stressed the importance of limiting cigarette smoking for overall health and well-being. Follow-up in 6 months with PVR to be completed prior; or sooner with any issues, concerns, and or questions. Orders: Orders AMB Urinalysis Automated Today Z13.9 - Encounter for screening, unspecified AMB Post Void Residual by ultrasound Today Z87.898 - Personal history of other specified conditions Medications: Changed From sildenafil (Viagra) BIN [id number] [facility] DR33 100 mg PO DAILY 90 days 90 tabs 0RF To sildenafil (Viagra) BIN [id number] [facility] DR33 100 mg PO .PRN 90 days 30 tabs 0RF Refilled tamsulosin (Flomax) 0.4 mg PO BEDTIME 90 days 90 caps 2RF N40.0 - Benign prostatic hyperplasia without lower urinary tract symptoms Patient Instructions: The patient had an opportunity to ask questions regarding the treatment plan. All questions were answered. Physical exam, labs, and imaging were discussed and reviewed in detail. As well as risks, benefits, and discussion of treatment choices. No major barriers to understanding were identified. The patient expressed understanding and agreement with the above treatment plan. The patient was made aware they should contact our office by phone for worsening of their current condition, the appearance of new symptoms, or with any questions or concerns. Compliance is encouraged with any medications and follow up testing that is ordered. It is a privilege to be allowed the opportunity to participate in? your urological care.? Again, if you have any questions or concerns If you have any questions or concerns please do not hesitate to contact me. The office is [phone]. This note is constructed using voice recognition software. While every effort has been made to ensure accuracy portfolio director errors may have been included. Yours sincerely, FLACO Shaw Coding Level of Care Code Est Pt Level 3 (95246) Complex EM visit Add On G2211 Diagnoses Erectile dysfunction N52.9 History of urinary hesitancy Z87.898 CPT Codes Post Residual Void - PVR CPT Code: 32383-Jcoz Void Residual by ultrasound ([id number])
== END 2023-10-23 10:54 | disposition home or self-care (01) ==
PROVIDERS: PCP Internal Medicine; Visit Provider Nurse Practitioner Family
DX: N52.9 Male erectile dysfunction, unspecified (principal); Z87.898 Personal history of other specified conditions; Z13.9 Encounter for screening, unspecified
CPT/HCPCS: 99213; G2211

== ENCOUNTER → 2023-10-23 10:22 | Outpatient (BNVA) | payer OTHER, SELFPAY | PROVIDERS: PCP Internal Medicine; Visit Provider Nurse Practitioner Family | DX: N52.9 Male erectile dysfunction, unspecified (principal); Z87.898 Personal history of other specified conditions | CPT/HCPCS: 51798; 81003; 99212 ==

== ENCOUNTER 2024-01-25 10:48 | Outpatient (AMB) | payer OTHER, SELFPAY ==
[2024-01-25 10:52] VITALS: BP 102/80; PULSE 72; O2SAT 97; BMI 27.4
--- NOTE | 2024-01-25 10:52 | A.OFFVIS_ITS ---
Vital Signs 01/25/24 10:52 Height 5 ft 6 in Weight 170 lb BMI 27.4 BP 102/80 Blood Pressure Location Lt brachial Position Sitting Pulse 72 Pulse Source Pulse Oximeter Pulse Oximetry (%) 97 Oxygen Delivery Method Room Air Intake Visit Reasons: INP: Tremors Rn Lvn Required: No Rn Lvn Services: Rn Lvn Present Weatherization And Housing Inspector: Weatherization And Housing Inspector Present Accompanied by: Friend Allergies No Known Allergies [No Known Allergies*] Allergy (Verified 01/25/24 10:57) Medication List - Last Reconciled 01/25/24 by Janene Anderson MD aripiprazole 5 mg PO DAILY aspirin 81 mg PO DAILY cholecalciferol (vitamin D3) 50 mcg PO DAILY cyclobenzaprine 10 mg PO .prn gabapentin 100 mg PO BEDTIME mirtazapine 45 mg PO BEDTIME pantoprazole 40 mg PO DAILY rosuvastatin 20 mg PO DAILY sennosides (senna) 17.2 mg (2 x 8.6 mg) PO BEDTIME 30 days sildenafil (Viagra) 100 mg PO .PRN 90 days tamsulosin (Flomax) 0.4 mg PO BEDTIME 90 days Do you need a note to return to daycare/school/sports/work: No HPI Comments Details: 58y/o Right handed male comes for evaluation of tremors in his hands and abnormal twitching when sleep. He is accompanied by his girlfriend who helps with the history. His tremors are intermittent , started about 1 year ago and usually with activity needing fine motor coordination. He can write without tremors. He can eat but has some problems at times due to tremors. he is able to drink from a cup without tremors most of the time. when he is working like using a screwdriver, do some house projects or work with his car he has increased tremors. He is not socially embarrassed His girlfriend notices abnormal kicking a leg movements in sleep.He has scoliosis and has chronic back pain. He wakes up frequently with abnormal leg movements. He has h/o moderate sleep apnea and is on CPAP but not very compliant - he reports the hose is 2 years old and dirty. He has not had new supplies in the past 2 years. HST in 2021 showed AHI 17 and oxygen jess 84%. He denies nay leg pain or abnormal sensations in legs at rest. [facility] Medical History (Updated 01/25/24 @ 11:44 by Janene Anderson MD) Periodic limb movements of sleep Coarse tremors Annual physical exam Sleep apnea Tobacco dependence Schizophrenia Primary hypogonadism in male Right knee pain Scoliosis Hyperlipidemia GERD (gastroesophageal reflux disease) Spondylosis Carotid artery aneurysm Dextroscoliosis Depression Anxiety Surgical History History of surgery on arm History of esophagogastroduodenoscopy (EGD) H/O colonoscopy Family History Father No problems noted. Mother Breast cancer Brother Mental health disorder PTSD (post-traumatic stress disorder) Social History Household Members: Family Housing: Apartment Are you a primary healthcare economics consultant to a significant other at home: No Do you presently have visiting nurse or other home services: Yes Alcohol intake: current Alcohol intake frequency: does not drink Patient Tobacco Use Status: Current everyday Tobacco user Tobacco use type: Cigarette Cigarettes Per Day: 3 e-Cigarette/Vaping Use: Never Used Second Hand Smoke Exposure: No Advance Directives Date on File: 11/20/19 service: No Current occupational status: unemployed Current occupational exposures/hazards: No Cognitive needs: No Hearing needs: No Vision needs: Yes Physical Exam Vital Signs: Last Vital Signs Pulse 72 01/25/24 10:52 BP 102/80 01/25/24 10:52 Pulse Ox 97 01/25/24 10:52 Oxygen Delivery Method Room Air 01/25/24 10:52 BMI result Body Mass Index 27.4 Const General: cooperative, healthy appearing and comfortable Nutritional Appearance: average body habitus Orientation/consciousness: patient oriented x3 Neck Neck: Yes no meningeal signs Neuro Other: mild amanuel action tremors No rest tremors General: patient oriented x3, tone normal, moves all extremities, no meningeal signs and no focal motor deficits Cognition (Neuro): normal cognition Gait exam (Neuro): Normal gait present Motor exam (neuro): 5/5 motor strength present throughout and Normal motor muscle tone present throughout Deep tendon reflexes (DTR's): Right triceps reflex intensity grade: 1+, Left tr iceps reflex intensity grade: 1+, Rt Biceps (C5, C6): 1+, Left biceps reflex intensity grade: 1+, Right brachioradialis reflex intensity grade: 1+, Left brachioradialis reflex intensity grade: 1+, Right patellar reflex intensity grade: 1+ and Left patellar reflex intensity grade: 1+ Coordination: [id number] test normal Assessment & Plan Assessment & Plan (1) Coarse tremors: Comment: related to aripirazole, ? essential or exagerated physiologicla tremors Code(s): G25.2 - Other specified forms of tremor Category: Medical (2) Sleep apnea: Comment: Moderately severe degree of sleep apnea. The AHI was 17/hr and oxygen jess was 84% Code(s): G47.30 - Sleep apnea, unspecified Category: Medical Qualifiers: Sleep apnea type: obstructive Qualified Code(s): G47.33 - Obstructive sleep apnea (adult) (pediatric) (3) Periodic limb movements of sleep: Code(s): G47.61 - Periodic limb movement disorder Category: Medical Plan I will trial him on gabapentin 100mg 1-3 caps at bedtime for PLMS and possible help with tremors Discussed about compliance with CPAP. I will send a [facility] D/C Ambien Medications: New gabapentin 100 mg PO BEDTIME 90 caps 6RF gabapentin 100 mg PO BEDTIME 90 caps 6RF Coding Level of Care Code New Pt Level 4 (12355) Complex EM visit Add On G2211 Diagnoses Coarse tremors G25.2 Obstructive sleep apnea syndrome G47.33 Sleep apnea type: obstructive Periodic limb movements of sleep G47.61
== END 2024-01-25 11:54 | disposition home or self-care (01) ==
PROVIDERS: PCP Internal Medicine; Visit Provider Psychiatry & Neurology Neurology
DX: G25.2 Other specified forms of tremor (principal); G47.33 Obstructive sleep apnea (adult) (pediatric); G47.61 Periodic limb movement disorder
CPT/HCPCS: 99204; G2211

== ENCOUNTER → 2024-01-25 10:48 | Outpatient (BNVA) | payer OTHER, SELFPAY | PROVIDERS: PCP Internal Medicine; Visit Provider Psychiatry & Neurology Neurology | DX: G25.2 Other specified forms of tremor (principal); G47.33 Obstructive sleep apnea (adult) (pediatric); G47.61 Periodic limb movement disorder | CPT/HCPCS: 99202 ==

== ENCOUNTER 2024-03-06 10:39 | Outpatient (AMB) | payer OTHER, SELFPAY ==
--- NOTE | 2024-03-06 10:41 | MHC.PC.OV ---
Vital Signs 03/06/24 10:42 Height 5 ft 6 in Weight 170 lb BMI 27.4 BP 110/70 Blood Pressure Location Rt brachial Position Sitting Pulse 75 Pulse Source Pulse Oximeter Pulse Oximetry (%) 97 Oxygen Delivery Method Room Air Intake Visit Reasons: Annual PE Intake Note: Pt is here today for PE. Allergies No Known Allergies [No Known Allergies*] Allergy (Verified 03/06/24 10:45) Medication List - Last Reconciled 03/06/24 by Yaima Collier MD aripiprazole 5 mg PO DAILY aspirin 81 mg PO DAILY cholecalciferol (vitamin D3) 50 mcg PO DAILY cyclobenzaprine 10 mg PO .prn gabapentin 100 mg PO BEDTIME mirtazapine 45 mg PO BEDTIME pantoprazole 40 mg PO DAILY rosuvastatin 20 mg PO DAILY sennosides (senna) 17.2 mg (2 x 8.6 mg) PO BEDTIME 30 days sildenafil (Viagra) 100 mg PO .PRN 90 days tamsulosin (Flomax) 0.4 mg PO BEDTIME 90 days Tobacco use date assessed: 03/06/24 Dental Screening Dental Screen Date: 03/06/24 Did you have a dental visit in the last 12 months?: No Did you have a dental problem in the last 6 months where you did not have access to dental care?: No Was dental information given to patient?: Patient declined HPI Annual PE HPI Details Pt presents for PE. [facility] Medical History Osteopenia Nicotine dependence, cigarettes, uncomplicated Periodic limb movements of sleep Coarse tremors Sleep apnea Schizophrenia Primary hypogonadism in male Right knee pain Scoliosis Hyperlipidemia GERD (gastroesophageal reflux disease) Spondylosis Carotid artery aneurysm Dextroscoliosis Depression Anxiety Surgical History History of surgery on arm History of esophagogastroduodenoscopy (EGD) H/O colonoscopy Family History Father No problems noted. Mother Breast cancer Brother Mental health disorder PTSD (post-traumatic stress disorder) Social History Household Members: Family Housing: Apartment Are you a primary career and transition teacher to a significant other at home: No Do you presently have visiting nurse or other home services: Yes Alcohol intake: current Alcohol intake frequency: does not drink Patient Tobacco Use Status: Current everyday Tobacco user Tobacco use type: Cigarette Cigarettes Per Day: 3 e-Cigarette/Vaping Use: Never Used Second Hand Smoke Exposure: No Advance Directives Date on File: 11/20/19 service: No Current occupational status: unemployed Current occupational exposures/hazards: No Cognitive needs: No Hearing needs: No Vision needs: Yes Questionnaire PHQ-9 Over the last 2 weeks, how often have you been bothered by any of the following problems? 1. Little interest or pleasure in doing things: nearly every day 2. Feeling down, depressed, or hopeless: nearly every day 3. Trouble falling or staying asleep, or sleeping too much: not at all 4. Feeling tired or having little energy: more than half the days 5. Poor appetite or overeating: not at all 6. Feeling bad about yourself - or that you are a failure or have let yourself or your family down: not at all 7. Trouble concentrating on things, such as reading the newspaper or watching television: not at all 8. Moving or speaking so slowly that other people could have noticed. Or the opposite - being so fidgety or restless that you have been moving around a lot more than usual: not at all 9. Thoughts that you would be better off or of hurting yourself in some way: not at all Total score: 8 Depression Screening Interpretation: Negative Depression Screening Done: Yes 17825 - PHQ-9 Billing: Yes Source: Developed by Drs. Jatinder Mei, Jennifer Hidalgo, Peter Brooks and colleagues, with an educational desiree from [employer]. Thrive Questionnaire Date Thrive assessed: 03/06/24 I am a: Patient What is your living situation today?: I have a steady place to live Within the past 12 months, did the food you bought not last and you didn't have the money to get more?: Sometimes True Within the past 12 months, did you worry whether your food would run out before you got money to buy more?: Sometimes True Do you have trouble paying for medicines?: No Do you have trouble getting transportation to medical appointments?: No Do you have trouble paying your heating and electricity bill?: No Do you have trouble taking care of your child, family member or friend?: No Do you have trouble with day-to-day activities such as bathing, preparing meals, shopping, managing finances, etc.?: No Are you currently unemployed and looking for a job?: No Are you interested in more education?: No Please select the resources that you would like help with: None Currently or been in a relationship where the following occur: No concerns reported THRIVE Score: 2 AUDIT C Alcohol Use Questionnaire (AUDIT-C) 1. How often do you have a drink containing alcohol?: 2-4 times a month 2. How many drinks containing alcohol do you have on a typical day when you are drinking?: 5 or 6 3. How often do you have six or more drinks on one occasion?: Monthly Total Score: 6 WENDY-7 AMB Questionnaire WENDY-7 Date WENDY - 7 assessed: 03/06/24 Feeling nervous, anxious, or on edge: 1 = Several days Not being able to stop or control worryin = Not at all Worrying too much about different things: 0 = Not at all Trouble relaxin = Not at all Being so restless that it is hard to sit still: 1 = Several days Becoming easily annoyed or irritable: 0 = Not at all Feeling afraid as if something awful might happen: 0 = Not at all Total WENDY-7 score (0-4 normal; 5-9 mild; 10-14 moderate; 15-21 severe): 2 Source: Developed by Drs. Jatinder Mei, Jennifer Hidalgo, Peter Brooks and colleagues, with an educational desiree from [employer]. WENDY-7 Assessment Billing WENDY-7 Assessment Tool: WENDY-7 Assessment 21064 Review of Systems Const All systems reviewed & are unremarkable except as noted in HPI and below Eyes Reports no additional complaints ENT Reports no additional complaints Card Reports no additional complaints Resp Reports no additional complaints GI Reports no additional complaints Reports no additional complaints Physical exam (Primary Care) Vital Signs: Last Vital Signs Pulse 75 03/06/24 10:42 BP 110/70 03/06/24 10:42 Pulse Ox 97 03/06/24 10:42 Oxygen Delivery Method Room Air 03/06/24 10:42 BMI result Body Mass Index 27.4 Tobacco/Smoking Status: Tobacco use Status Tobacco use date assessed 03/06/24 03/06/24 10:47 Patient Tobacco Use Status Current everyday Tobacco 03/06/24 10:42 Tobacco use type Cigarette 03/06/24 10:42 e-Cigarette/Vaping Use Never Used 03/06/24 10:42 PHQ-9: PHQ-9 Score PHQ-9: Total score 8 03/06/24 10:50 Depression Screening Interpretation: Negative Thrive Assessment: Date of Thrive Assessment Date Thrive assessed 03/06/24 03/06/24 10:50 Currently or been in a relationship where the following occur: No concerns reported Const General: no acute distress HENNH General nose exam: Normal external nose present Face and sinus: Yes normal facial exam Mouth: Normal oral and palatal mucosa present Throat: Yes posterior oropharynx normal Eyes General: appearance normal, both eyes and all related structures Neck Neck: Yes no lymphadenopathy and Yes supple Resp Effort & Inspection: normal respiratory effort Auscultation: diminished lung sounds Cardio Rhythm: regular rhythm Heart sounds: S1 normal heart sound present and S2 normal heart sound present GI Inspection: Yes normal to inspection Palpation (GI): Soft to palpation Percussion: Yes normal to percussion Auscultation: normal bowel sounds Coding Level of Care Code Est Pt Prev Care 40-64y(85497) Diagnoses Foot callus L84 Nicotine dependence, cigarettes, uncomplicated F17.210 Hyperlipidemia E78.5 Depression F32.9 Annual physical exam Z00.00 BPH (benign prostatic hyperplasia) N40.0 Additional Codes WENDY-7 Assessment Billing - WENDY-7 Assessment Tool: WENDY-7 Assessment 29326 ([id number]) PHQ-9 - 58726 - PHQ-9 Billing: Yes ([id number]) Assessment & Plan Assessment & Plan (1) Foot callus: Code(s): L84 - Corns and callosities Category: Medical Plan: refer to podiatry (2) Nicotine dependence, cigarettes, uncomplicated: Comment: (30+PYH) Code(s): F17.210 - Nicotine dependence, cigarettes, uncomplicated Category: Medical Plan: Tobacco quitting discussed with the patient (3) Hyperlipidemia: Code(s): E78.5 - Hyperlipidemia, unspecified Category: Medical Plan: Continue statin (4) Depression: Comment: Stable on medications follows up with Psychiatry Code(s): F32.9 - Major depressive disorder, single episode, unspecified Category: Medical Plan: Follow-up with psychiatry (5) Annual physical exam: Code(s): Z00.00 - Encounter for general adult medical examination without abnormal findings Category: Medical Plan: Well-balanced diet regular physical activity discussed with the patient. He is due for colonoscopy in 2 years (6) BPH (benign prostatic hyperplasia): Comment: Established with Urology Code(s): N40.0 - Benign prostatic hyperplasia without lower urinary tract symptoms Category: Medical Plan: Continue tamsulosin Orders: Orders Vitamin D 25-OH Total 1 Year E55.9 - Vitamin D deficiency, unspecified, E78.5 - Hyperlipidemia, unspecified, N40.0 - Benign prostatic hyperplasia without lower urinary tract symptoms Comprehensive [place]. Panel Fast 1 Year E55.9 - Vitamin D deficiency, unspecified, E78.5 - Hyperlipidemia, unspecified, N40.0 - Benign prostatic hyperplasia without lower urinary tract symptoms Lipid Panel 1 Year E55.9 - Vitamin D deficiency, unspecified, E78.5 - Hyperlipidemia, unspecified, N40.0 - Benign prostatic hyperplasia without lower urinary tract symptoms Complete Blood Count Auto Diff 1 Year E55.9 - Vitamin D deficiency, unspecified, E78.5 - Hyperlipidemia, unspecified, N40.0 - Benign prostatic hyperplasia without lower urinary tract symptoms PSA,Total (Free>4and<10) 1 Year E55.9 - Vitamin D deficiency, unspecified, E78.5 - Hyperlipidemia, unspecified, N40.0 - Benign prostatic hyperplasia without lower urinary tract symptoms UA w Microscopic 1 Year E55.9 - Vitamin D deficiency, unspecified, E78.5 - Hyperlipidemia, unspecified, N40.0 - Benign prostatic hyperplasia without lower urinary tract symptoms Referrals Podiatry Referral L84 - Corns and callosities Cologuard Test Z12.11 - Encounter for screening for malignant neoplasm of colon, Z12.12 - Encounter for screening for malignant neoplasm of rectum
[2024-03-06 10:42] VITALS: BP 110/70; PULSE 75; O2SAT 97; BMI 27.4
--- OUTSIDE RECORDS SUMMARY | 2024-03-06 11:53 | XMS_ITS | Encounter Summary ---
Author Organization [facility] Address [address] [place] [address] Care Team Providers Care Actionscript Developer Name Role Phone Unavailable Primary Care Provider Unavailabl e Encounter Details Date Type Department Care Team (Latest Contact Info) Description 02/20/2018 Abstract [facility] CONVERSIONS Dental, Provider, DDS Social History Tobacco Use Types Packs/Day Years Used Date Smoking Tobacco: Never Assessed Sex and Gender Information Value Date Recorded Sex Assigned at Male 12/13/2021 10:29 AM EDT Legal Sex Male 10:29 AM EDT Gender Identity Male 04/29/2022 12:56 PM EDT Sexual Orientation Choose not to disclose 2022 12:56 PM EDT documented as of this encounter Plan of Treatment Not on file documented as of this encounter Visit Diagnoses Not on filedocumented in this encounter
--- OUTSIDE RECORDS SUMMARY | 2024-03-06 11:53 | XMS_ITS | Clinical Summary ---
Author Organization [facility] Address [address] [place] [address] Care Team Providers Care Tour Sales Representative Name Role Phone Unavailable Primary Care Provider Unavailabl e Allergies No known active allergies Medications pantoprazole (ProtoNix) 40 MG EC tablet Take 40 mg by mouth in the morning. 3 Active ARIPiprazole (Abilify) 2 MG tablet 3 Active mirtazapine (Remeron) 45 MG tablet 3 Active zolpidem CR (Ambien CR) 12.5 MG ER tablet Take 12.5 mg by mouth if needed at bedtime for sleep. Do not crush, chew, or split. Active bismuth subsalicylate (Pepto Bismol) 262 MG/15ML suspension Take 15 mL by mouth every 6 (six) hours if needed for indigestion. Active aspirin 325 MG tablet Take 325 mg by mouth in the morning. Active Cholecalciferol (D3) 10 MCG (400 UNIT) chewable tablet Chew. 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 Dental calculus 01/02/2023 Social History Tobacco Use Types Packs/Day Years Used Date Smoking Tobacco: Every Day Cigarettes 0.3 0.5 Passive Smoke Exposure: Never Smokeless Tobacco: Former Tobacco Cessation:Ready to Q uit: Not Asked; Counseling Given: Not Answered Alcohol Use Standard Drinks/Week Comments Never 0 (1 standard drink = 0.6 oz pur e alcohol) Sex and Gender Information Value Date Recorded Sex Assigned at Male 12/13/2021 10:29 AM EDT Legal Sex Male 10:29 AM EDT Gender Identity Male 04/29/2022 12:56 PM EDT Sexual Orientation Choose not to disclose 2022 12:56 PM EDT Plan of Treatment Health Maintenance Due Date Last Done Comments CT Colonography 1963 Colonoscopy 1963 Colorectal Cancer Screening 1963 Depression Screening 1963 FIT DNA/Cologuard 1963 FIT 1963 FOBT 1963 HIV Screening 1963 Lipid Panel 1963 SDOH Screening 1963 Sigmoidoscopy 1963 Pneumococcal Vaccine: Pediatrics (0 to 5 Years) and At-Risk Patients (6 to 64 Years) (1 of 2 - PCV) 10/31/1969 Alcohol/Substance Use Screening 1975 Hepatitis C Screening 10/31/1981 DTaP/Tdap/Td Vaccines (1 - Tdap) 10/31/1982 Zoster Vaccines (1 of 2) 10/31/2013 Dental Oral Exam 04/25/2023 10/24/2022 Dental Prophylaxis 07/04/2023 01/02/2023 COVID-19 Vaccine (3 - 2023-2 5 season) 2023 12/23/2020, 05/18/2020 Influenza Vaccine (#1) 2023 11/26/2015 Dental X-Ray: Bitewings 10/26/2023 10/24/2022 Tobacco Screening 01/03/2024 01/02/2023 Dental X-Ray: Full Mouth 10/25/2025 023, 04/29/2022 RSV Patients and Patients Aged 60 years or older (1 - 1-dose 75+ series) 10/31/2038 HIB Vaccines Aged Out No longer eligi ble based on patient's age to complete this topic HPV Vaccines Aged Out No longer eligi ble based on patient's age to complete this topic Hepatitis A Vaccines Aged Out No long er eligible based on patient's age to complete this topic Hepatitis B Vaccines Aged Out No long er eligible based on patient's age to complete this topic IPV Vaccines Aged Out No longer eligi ble based on patient's age to complete this topic Meningococcal Vaccine Aged Out No divina abigail eligible based on patient's age to complete this topic RSV under 20 months Aged Out No longe r eligible based on patient's age to complete this topic Rotavirus Vaccines Aged Out No longer eligible based on patient's age to complete this topic Procedures Procedure Name Priority Date/Time Associated Diagnosis Comments PROPHYLAXIS - ADULT Routine 01/02/2023 1 :00 PM EST Generalized aggressive severe periodontitis Dental calculus DIAGNOSTIC - DIAGNOSTIC IMAGING - INTRAORAL - COMPREHENSIVE SERIES OF RADIOGRAPHIC IMAGES Routine 10/24/2022 1:30 PM EDT PERIODIC ORAL EVALUATION - ESTABLISHED PATIENT Routine 10/24/2022 1:30 PM EDT from Last 3 Months or Most Recently Relevant to Health Maintenance Insurance DENTAL - [facility]
== END 2024-03-06 11:27 | disposition home or self-care (01) ==
PROVIDERS: PCP Internal Medicine; Visit Provider Internal Medicine
DX: L84 Corns and callosities (principal); F17.210 Nicotine dependence, cigarettes, uncomplicated; E78.5 Hyperlipidemia, unspecified; F32.9 Major depressive disorder, single episode, unspecified; Z00.00 Encounter for general adult medical examination without abnormal findings; N40.0 Benign prostatic hyperplasia without lower urinary tract symptoms

== ENCOUNTER → 2024-03-06 10:39 | Outpatient (BNVA) | payer OTHER, SELFPAY | PROVIDERS: PCP Internal Medicine; Visit Provider Internal Medicine | DX: Z00.00 Encounter for general adult medical examination without abnormal findings (principal); L84 Corns and callosities; E78.5 Hyperlipidemia, unspecified; F32.9 Major depressive disorder, single episode, unspecified; N40.0 Benign prostatic hyperplasia without lower urinary tract symptoms; F17.210 Nicotine dependence, cigarettes, uncomplicated; Z71.6 Tobacco abuse counseling | CPT/HCPCS: 96127; 99396 ==

== ENCOUNTER 2024-04-09 08:10 | Outpatient (REF) | payer OTHER, SELFPAY ==
--- NOTE | ~2024-04-09 | CT_ITS ---
EXAMINATION: CT LUNG SCREENING HISTORY: Smoking history TECHNIQUE: Low dose axial images were obtained from the sternal notch to upper abdomen without IV contrast per standard departmental protocol. Sagittal and coronal reformatted images were also obtained and reviewed. One or more of the following techniques was used for dose reduction: Automated exposure control, adjustment of the mA and/or kV according to patient size, use of iterative reconstruction technique. DLP: 50 mGy-cm COMPARISON: Comparison is made with the prior examination dated 04/04/2023. FINDINGS: Lung nodules: Multiple new pulmonary nodules including a 2 mm nodule at the right lung apex (series 4, image 25), a 3 mm nodule in the right upper lobe (series 4, image 56), and a 4 mm nodule in the right lower lobe (series 4, image 95). On the left, there are 3 mm nodules in the left upper lobe (series 4, images 33, 34, 61, and 65). A 4 mm nodule along the left major fissure is compatible with an intrapulmonary lymph node. Emphysema: none Coronary Calcification: none Aortic Arch Calcification: none Potentially Significant Incidentals : none Additional Chest Findings: There is no pleural or pericardial effusion. No mediastinal or axillary lymphadenopathy is identified. Visualized upper abdomen: The visualized portions of the liver, spleen, and adrenals have an unremarkable unenhanced appearance. CT/CT lung screening IMPRESSION: Multiple new bilateral pulmonary nodules are identified measuring up to 4 mm in size as described. LUNG-RADS ASSESSMENT: Lung-RADS 3: Probably Benign MANAGEMENT: 6 month LDCT Category S: N/A Electronically signed by: Jatinder Schmid MD 04/09/2024 01:06 PM [facility]
--- OUTSIDE RECORDS SUMMARY | 2024-04-09 08:24 | XMS_ITS | Encounter Summary ---
Author Organization [facility] [facility] Address [address] [place] [address] Care Team Providers Care Central Office Equipment Engineer Name Role Phone Unavailable Primary Care Provider Unavailabl e Encounter Details Date Type Department Care Team (Latest Contact Info) Description 02/20/2018 Abstract [facility] CONVERSIONS Dental, Provider, DDS Social History Tobacco [...]
--- OUTSIDE RECORDS SUMMARY | 2024-04-09 08:24 | XMS_ITS | Clinical Summary ---
Author Organization [facility] Address [address] [place] [address] Care Team Providers Care Straight Line Press Setter Name Role Phone Unavailable Primary Care Provider [...] Panel 1963 SDOH Screening 1963 Sigmoidoscopy 1963 Alcohol/Substance Use Screening 1975 Hepatitis C Screening 10/31/1981 DTaP/Tdap/Td Vaccines (1 - Tdap) 10/31/1982 Pneumococcal Vaccine: 50+ Years (1 of 2 - PCV) 10/31/1982 Zoster Vaccines (1 of 2) 10/31/2013 [...] EST Generalized aggressive severe periodontitis Dental calculus INTRAORAL - COMPLETE SERIES OF RADIOGRAPHIC IMAGES Routine 10/24/2022 1:30 PM EDT PERIODIC ORAL EVALUATION - ESTABLISHED PATIENT Routine 10/24/2022 1:30 PM EDT from Last 3 Months or Most Recently Relevant to Health Maintenance Insurance [address] [place] [address] [facility]
== END 2024-04-09 08:11 | disposition home or self-care (01) ==
LOC: HO.CT 08:10
PROVIDERS: PCP Internal Medicine; Visit Provider Physician Assistant Medical
DX: Z12.2 Encounter for screening for malignant neoplasm of respiratory organs (principal); F17.210 Nicotine dependence, cigarettes, uncomplicated
CPT/HCPCS: 71271

== ENCOUNTER → 2024-04-09 08:11 | Outpatient (BNV) | payer OTHER, SELFPAY | PROVIDERS: PCP Internal Medicine; Visit Provider Radiology Diagnostic Radiology | DX: F17.210 Nicotine dependence, cigarettes, uncomplicated (principal) | CPT/HCPCS: 71271 ==

== ENCOUNTER 2024-04-24 11:31 | Outpatient (AMB) | payer OTHER, SELFPAY ==
--- NOTE | 2024-04-24 11:30 | MHC.OFFVIS ---
Vital Signs 04/24/24 11:41 Height 5 ft 6 in Weight 170 lb BMI 27.4 BP 110/70 Blood Pressure Location Rt brachial Position Sitting Pulse 94 Pulse Source Pulse Oximeter Pulse Oximetry (%) 97 Oxygen Delivery Method Room Air Intake Visit Reasons: Follow Up 3mo Intake Note: Patient presents for follow up tremors. Non compliant with cpap Target Trimmer Required: No Allergies No Known Allergies [No Known Allergies*] Allergy (Verified 04/24/24 11:41) HPI Comments Details: 58y/o Right handed male comes for evaluation of tremors in his hands and abnormal twitching. He is accompanied by his girlfriend who helps with the history. His tremors are intermittent, started about 1 year ago and usually with activity and fine motor coordination. He can write without tremors. He has some problems with using utensils for dinner and when he picks up things. He is able to drink from a cup without tremors most of the time. When he is works with a screwdriver for house projects or works on his car he has increased action tremors. He is not socially embarrassed. His girlfriend notices abnormal kicking and leg movements in his sleep, his leg pain keeps him up at night. He has scoliosis and chronic back pain. He has h/o moderate sleep apnea and is on CPAP but very compliant because the machine is too big for his night table. He is a smoker and interested in smoking cessation after his recent CT scan showing (3) small nodules in the R. Lung and (2) in the left. He sees his psychiatrist every 2 months and therapist every 3 weeks for depression. [facility] Medical History Osteopenia Nicotine dependence, cigarettes, uncomplicated Periodic limb movements of sleep Coarse tremors Sleep apnea Schizophrenia Primary hypogonadism in male Right knee pain Scoliosis Hyperlipidemia GERD (gastroesophageal reflux disease) Spondylosis Carotid artery aneurysm Dextroscoliosis Depression Anxiety Surgical History History of surgery on arm History of esophagogastroduodenoscopy (EGD) H/O colonoscopy Family History Father No problems noted. Mother Breast cancer Brother Mental health disorder PTSD (post-traumatic stress disorder) Social History Household Members: Family Housing: Apartment Are you a primary career coach to a significant other at home: No Do you presently have visiting nurse or other home services: Yes Alcohol intake: current Alcohol intake frequency: does not drink Patient Tobacco Use Status: Current everyday Tobacco user Tobacco use type: Cigarette Cigarettes Per Day: 3 e-Cigarette/Vaping Use: Never Used Second Hand Smoke Exposure: No Advance Directives Date on File: 11/20/19 service: No Current occupational status: unemployed Current occupational exposures/hazards: No Cognitive needs: No Hearing needs: No Vision needs: Yes Physical Exam Vital Signs: Last Vital Signs Pulse 94 04/24/24 11:41 BP 110/70 04/24/24 11:41 Pulse Ox 97 04/24/24 11:41 Oxygen Delivery Method Room Air 04/24/24 11:41 BMI result Body Mass Index 27.4 Const General: cooperative, healthy appearing and comfortable Nutritional Appearance: average body habitus Orientation/consciousness: patient oriented x3 Neck Neck: Yes no meningeal signs Neuro Other: mild amaneul action tremors No rest tremors General: patient oriented x3, tone normal, moves all extremities, no meningeal signs and no focal motor deficits Cognition (Neuro): normal cognition Gait exam (Neuro): Normal gait present Motor exam (neuro): 5/5 motor strength present throughout and Normal motor muscle tone present throughout Deep tendon reflexes (DTR's): Right triceps reflex intensity grade: 1+, Left triceps reflex intensity grade: 1+, Rt Biceps (C5, C6): 1+, Left biceps reflex intensity grade: 1+, Right brachioradialis reflex intensity grade: 1+, Left brachioradialis reflex intensity grade: 1+, Right patellar reflex intensity grade: 1+ and Left patellar reflex intensity grade: 1+ Coordination: [id number] test normal Results Reviewed Results Reviewed: FINDINGS: Lung nodules: Multiple new pulmonary nodules including a 2 mm nodule at the right lung apex (series 4, image 25), a 3 mm nodule in the right upper lobe (series 4, image 56), and a 4 mm nodule in the right lower lobe (series 4, image 95). On the left, there are 3 mm nodules in the left upper lobe (series 4, images 33, 34, 61, and 65). A 4 mm nodule along the left major fissure is compatible with an intrapulmonary lymph node. Emphysema: none Assessment & Plan Assessment & Plan (1) Sleep apnea: Comment: Moderately severe degree of sleep apnea. The AHI was 17/hr and oxygen jess was 84% Code(s): G47.30 - Sleep apnea, unspecified Category: Medical Qualifiers: Sleep apnea type: obstructive Qualified Code(s): G47.33 - Obstructive sleep apnea (adult) (pediatric) (2) Periodic limb movements of sleep: Code(s): G47.61 - Periodic limb movement disorder Category: Medical (3) Nicotine dependence, cigarettes, uncomplicated: Comment: (30+PYH) Code(s): F17.210 - Nicotine dependence, cigarettes, uncomplicated Category: Medical Plan Patient is not compliant with cPap machine. Increased Gabapentin 300mg PO today for PLMS/ RLS and to help with tremors. Low back pain Flexeril 5mg PO PRN Pain Will send him for a titration study as paitient c/o pressures and temperatures on cPAP. Engaged patient in conversation re: compliance of CPAP due to CT results 03/2024, lung nodules. Continue Melatonin 3mg to 5mg PO at bedtime as needed. D/C Sandraien Orders: Orders RT PSG in-lab sleep titration Today G47.33 - Obstructive sleep apnea (adult) (pediatric) Medications: New nicotine 1 patch transdermal Q24H 7 ea 3RF smoking cessation 90 days MDD 7mg F17.210 - Nicotine dependence, cigarettes, uncomplicated Changed From cyclobenzaprine 10 mg PO .prn G89.29 - Other chronic pain, M54.50 - Low back pain, unspecified To cyclobenzaprine for pain take one tablet daily as needed for pain. 5 mg PO ONCE 90 tabs 3RF back pain 90 days MDD 10mg G89.29 - Other chronic pain, M54.50 - Low back pain, unspecified From gabapentin 100 mg PO BEDTIME 90 caps 6RF G47.61 - Periodic limb movement disorder To gabapentin Take 300mg PO at bedtime for RLS. 300 mg PO BEDTIME 90 caps 1RF Restless legs 90 days MDD 300mg G47.61 - Periodic limb movement disorder Refilled sennosides (senna) 17.2 mg (2 x 8.6 mg) PO BEDTIME 60 caps 6RF constipation 30 days K59.04 - Chronic idiopathic constipation rosuvastatin 20 mg PO DAILY 90 tabs 2RF Patient Instructions: Sleep Hygiene and compliance is being stressed again today, as patient has lung nodules on cTscan and difficult time sleeping. Sleep in a dark room, temperatures should be 68 or below, no devices in bed. Reach out to [facility] for supplies, mask, tubing or adjustments of pressures and or temperatures, Portuguese speaking technicians are available to assist. Low Back Pain 5mg Felexiril as needed Refilled his Rosuvastatin - per his g/f request Will f/u after titration for compliance in 3months. Coding Level of Care Code Est Pt Level 4 (15236) Diagnoses Obstructive sleep apnea syndrome G47.33 Sleep apnea type: obstructive Periodic limb movements of sleep G47.61 Nicotine dependence, cigarettes, uncomplicated F17.210
[2024-04-24 11:41] VITALS: BP 110/70; PULSE 94; O2SAT 97; BMI 27.4
--- OUTSIDE RECORDS SUMMARY | 2024-04-24 13:36 | XMS_ITS | Encounter Summary ---
Author Organization [employer] [facility] Address [address] [place] [address] Care Team Providers Care Analytics Developer Name Role Phone Unavailable Primary Care Provider Unavailabl e Encounter Details Date Type Department Care Team (Latest Contact Info) Description 02/20/2018 Abstract [facility] CONVERSIONS Dental, Provider, DDS Social History [...]
--- OUTSIDE RECORDS SUMMARY | 2024-04-24 13:37 | XMS_ITS | Clinical Summary ---
Author Organization [employer] [facility] Address [address] [place] [address] Care Team Providers Care Hospice Home Health Aide Name Role Phone Unavailable Primary Care Provider [...] Relevant to Health Maintenance Insurance [address] [place] [address] DENTAL [facility]
== END 2024-04-24 12:51 | disposition home or self-care (01) ==
LOC: HO.HSMS 11:31
PROVIDERS: PCP Internal Medicine; Visit Provider Physician Assistant Medical
DX: G47.33 Obstructive sleep apnea (adult) (pediatric) (principal); G47.61 Periodic limb movement disorder; F17.210 Nicotine dependence, cigarettes, uncomplicated
CPT/HCPCS: 99214

== ENCOUNTER → 2024-04-24 11:31 | Outpatient (BNVA) | payer OTHER, SELFPAY | PROVIDERS: PCP Internal Medicine; Visit Provider Physician Assistant Medical | DX: G47.33 Obstructive sleep apnea (adult) (pediatric) (principal); G47.61 Periodic limb movement disorder; F17.210 Nicotine dependence, cigarettes, uncomplicated | CPT/HCPCS: 99212 ==

== ENCOUNTER 2024-06-26 16:02 | Outpatient (REF) | payer OTHER, SELFPAY ==
--- OUTSIDE RECORDS SUMMARY | 2024-06-26 16:50 | XMS_ITS | Encounter Summary ---
Author Organization [employer] [facility] Address [address] [place] [address] Care Team Providers Care Motor Polarizer Name Role Phone Unavailable Primary Care Provider [...]
--- OUTSIDE RECORDS SUMMARY | 2024-06-26 16:50 | XMS_ITS | Clinical Summary ---
Author Organization [employer] [facility] Address [address] [place] [address] Care Team Providers Care Booth Operator Name Role Phone Unavailable Primary Care Provider [...] Relevant to Health Maintenance Insurance [address] [place] [address] DENTAL [facility]
[2024-06-26 16:55] LABS: MANUAL DIFF FLAG NO
[2024-06-26 17:09] LABS: Basophils Absolute Auto 0.1 X10*3/uL (0.0-0.2); Basophils Percent Auto 0.6 % (0-2); Eosinophils Absolute Auto 0.3 X10*3/uL (0.0-0.4); Eosinophils Percent Auto 3.3 % (0-4); Hemoglobin 16.9 g/dl (14.0-18.0); Imm Gran Abs Auto 0.03 X10*3/uL (0.00-0.03); Imm Gran Pct Auto 0.3 % (0.0-0.4); Lymphocytes Absolute Auto 3.2 X10*3/uL (1.2-4.9); Lymphocytes Percent Auto 33.8 % (20-40); Mean Corpuscular HGB Conc 34.5 g/dl (31.0-36.0); Mean Corpuscular Hemoglobin 30.8 pg (27.0-33.0); Mean Corpuscular Volume 89.3 fL (80.0-98.0); Mean Platelet Volume 9.5 fL (9.4-12.4); Monocytes Absolute Auto 0.6 X10*3/uL (0.1-1.2); Monocytes Percent Auto 6.1 % (2-11); Neutrophils Absolute Auto 5.2 x10*3/uL (2.0-8.3); Neutrophils Percent Auto 55.9 % (45-73); Platelet Count 270 X10*3/uL (160-400); Red Blood Count 5.49 X10*6/uL (4.60-5.80); Red Cell Distribution Width 13.2 % (11.0-16.0); White Blood Count 9.4 X10*3/uL (4.8-10.8)
[2024-06-26 17:54] LABS: Anion Gap 13 (12-20); Calcium 8.6 mg/dL (8.4-10.2); Carbon Dioxide 24 mmol/L (22-29); Chloride 109 mmol/L (96-108); Glucose Random 122 mg/dL (60-115); Potassium 3.7 mmol/L (3.3-5.1); Sodium 142 mmol/L (135-145); Total Protein 7.3 g/dL (6.5-8.0)
[2024-06-26 17:55] LABS: Alanine Aminotransferase 32 U/L (0-40); Alkaline Phosphatase 73 U/L (39-117); Aspartate Amino Transferase 21 U/L (5-37); Bilirubin Total 0.3 mg/dL (0.0-1.0); Blood Urea Nitrogen 15 mg/dL (9-16); Estimated Glomerular Filt Rate > 60
== END 2024-06-26 16:03 | disposition home or self-care (01) ==
LOC: HO.LAB 16:02
PROVIDERS: PCP Internal Medicine; Visit Provider Nurse Practitioner
DX: Z01.818 Encounter for other preprocedural examination (principal); K21.9 Gastro-esophageal reflux disease without esophagitis; R19.5 Other fecal abnormalities
CPT/HCPCS: 36415; 80053; 85025; 99212

== ENCOUNTER 2024-06-26 16:02 | Outpatient (AMB) | payer OTHER, SELFPAY ==
--- NOTE | 2024-06-26 16:03 | A.OFFVIS_ITS ---
Vital Signs 06/26/24 16:05 Height 5 ft 6 in Weight 170 lb BMI 27.4 BP 120/72 Blood Pressure Location Rt brachial Position Sitting Pulse 92 Pulse Source Pulse Oximeter Pulse Oximetry (%) 96 Oxygen Delivery Method Room Air Intake Visit Reasons: pre colonoscopy/+ cologuard Intake Note: ESTABLISHED PATIENT for pre op appt. Alvin per + Cologuard (on file) CC; Pt denies any GI sx or concerns at this time. Pt needs refill of PPI as well as laxative/stool softener if possible. Candle Cutter Required: Yes Candle Cutter Services: Candle Cutter Present Candle Cutter Name: Benja [id number] Information Interpreted: clinical only Accompanied by: Self / Same As Patient Allergies No Known Allergies [No Known Allergies*] Allergy (Verified 06/26/24 16:21) HPI HPI pre colonoscopy/+ cologuard: Details: Assessment & Plan (1) Chronic idiopathic constipation: Code(s): K59.04 - Chronic idiopathic constipation Category: Medical (2) GERD (gastroesophageal reflux disease): Code(s): K21.9 - Gastro-esophageal reflux disease without esophagitis Category: Medical Plan CAMBODIAN #Nancy, Live He is now taking the pantorpazole bid and only occasionally has breakthrough GERD and HB. he also has senna for occasional CIC. ROV 6 mos. TODAY'S VISIT CAMBODIAN #[id number] He has not needed to use the senna but he still would like to have it on hand, he is asking this pantoprazole be increased to fact to twice a day as he found that his heartburn seems to be returning and he needs that dosing schedule. Apparently, he had a positive COloguard test with his PCP and now needs a colonoscopy. He really does not want the PEG as he really dislikes it, will try for suprep. There are no prior problems with anesthesia or sedation. NO ID problems. He has JOSE and he smokes, but no diagnosed resp problems and he denies any cardiac problems. ROV 6 mos. [facility] Medical History (Updated 06/26/24 @ 16:15 by Shalini Soria, ANP-C) Hip pain, bilateral Foot callus Scoliosis Right knee pain H. pylori infection Sleep difficulties H pylori ulcer Tremor History of urinary hesitancy Osteopenia Nicotine dependence, cigarettes, uncomplicated Periodic limb movements of sleep Coarse tremors Sleep apnea Schizophrenia Primary hypogonadism in male Hyperlipidemia GERD (gastroesophageal reflux disease) Spondylosis Carotid artery aneurysm Dextroscoliosis Depression Anxiety Surgical History History of surgery on arm History of esophagogastroduodenoscopy (EGD) H/O colonoscopy Family History Father No problems noted. Mother Breast cancer Brother Mental health disorder PTSD (post-traumatic stress disorder) Social History Household Members: Family Housing: Apartment Are you a primary career guidance technician to a significant other at home: No Do you presently have visiting nurse or other home services: Yes Alcohol intake: current Alcohol intake frequency: does not drink Patient Tobacco Use Status: Current everyday Tobacco user Tobacco use type: Cigarette Cigarettes Per Day: 3 e-Cigarette/Vaping Use: Never Used Second Hand Smoke Exposure: No Advance Directives Date on File: 11/20/19 service: No Current occupational status: unemployed Current occupational exposures/hazards: No Cognitive needs: No Hearing needs: No Vision needs: Yes Review of Systems Const Denies fatigue, Denies fever(s), Denies night sweats, Denies poor appetite and Denies weight loss ENT Reports Normal hearing present, Denies dental pain, Denies dysphagia, Denies hearing loss, Denies mouth pain, Denies odynophagia, Denies throat swelling, Denies tongue swelling and Reports other (Dentition adequate) Card Reports no additional complaints Resp Reports no additional complaints GI Details: Denies abdominal pain, Denies melena, Denies bloating, Denies hematochezia, Reports constipation, Denies GI cramping, Denies dysphagia, Denies excessive flatus, Denies early satiety, Reports heartburn, Denies diarrhea, Denies nausea, Denies odynophagia, Denies vomiting and Denies hematemesis Skin/Breast Denies pruritus, Denies lesions, Denies rash and Denies jaundice Neuro Reports Normal hearing present and Denies Abnormal speech present Endo Denies fatigue Aller/Immun Denies throat swelling and Denies tongue swelling Physical Exam Vital Signs: Last Vital Signs Pulse 92 06/26/24 16:05 BP 120/72 06/26/24 16:05 Pulse Ox 96 06/26/24 16:05 Oxygen Delivery Method Room Air 06/26/24 16:05 BMI result Body Mass Index 27.4 Const General: cooperative, no acute distress, well developed and well groomed Nutritional Appearance: average body habitus and well nourished Orientation/consciousness: oriented to person, oriented to place and oriented to time Limitations: language barrier HEENT Head: Yes normocephalic and Yes atraumatic Eyes General: appearance normal, both eyes and all related structures Pupils: Equal, round and reactive pupils present Neck Neck: Yes normal visual inspection and Yes no lymphadenopathy Thyroid: Thyroid normal Resp Effort & Inspection: normal respiratory effort and able to speak in complete sentences Auscultation: clear to auscultation bilaterally Cardio Rate: regular rate Rhythm: regular rhythm Heart sounds: Normal, physiologic split S2 sound present Peripheral pulses: radial pulses present and posterior tibial pulses present GI Inspection: No distended and No Abdominal panniculus present Palpation (GI): Soft to palpation, nontender, no guarding, not rigid and No hepatosplenomegaly present Percussion: Yes normal to percussion Auscultation: normal bowel sounds Rectal Exam - Male: Yes deferred Skin General skin exam: no rashes or lesions noted, turgor normal, skin not dry, no jaundice, No spider nevi and no striae Rashes: no rashes Nails: normal Neuro General: oriented to person, oriented to place and oriented to time Cranial nerves: Yes Equal, round and reactive pupils present and Yes Normal hearing present Speech: No Abnormal speech present Extrem General: Yes normal to inspection, No clubbing, No cyanosis and No edema Psych Appearance: grossly normal and well kempt Mental Status: mental status grossly normal Speech and movement: Normal speech and movement present Affect: normal affect Attitude: cooperative Thought process: Normal thought process present and not confabulating Thought content: Normal thought content present Insight: Limited insight present (Psych) Judgement: Limited judgement present (Psych) Assessment & Plan Assessment & Plan (1) GERD (gastroesophageal reflux disease): Code(s): K21.9 - Gastro-esophageal reflux disease without esophagitis Category: Medical (2) Positive colorectal cancer screening using Cologuard test: Comment: 03/2024. refer to GI Code(s): R19.5 - Other fecal abnormalities Category: Medical (3) Pre-op examination: Code(s): Z01.818 - Encounter for other preprocedural examination Category: Medical Plan CAMBODIAN #[id number] He has not needed to use the senna but he still would like to have it on hand, he is asking this pantoprazole be increased to fact to twice a day as he found that his heartburn seems to be returning and he needs that dosing schedule. Apparently, he had a positive COloguard test with his PCP and now needs a colonoscopy. He really does not want the PEG as he really dislikes it, will try for suprep. There are no prior problems with anesthesia or sedation. NO ID problems. He has JOSE and he smokes, but no diagnosed resp problems and he denies any cardi ac problems. ROV 6 mos. Orders: Orders Comprehensive Met. Panel Today K21.9 - Gastro-esophageal reflux disease without esophagitis, R19.5 - Other fecal abnormalities, Z01.818 - Encounter for other preprocedural examination Colonoscopy - GI Use Only Today K21.9 - Gastro-esophageal reflux disease without esophagitis, R19.5 - Other fecal abnormalities, Z01.818 - Encounter for other preprocedural examination Complete Blood Count Auto Diff Today K21.9 - Gastro-esophageal reflux disease without esophagitis, R19.5 - Other fecal abnormalities, Z01.818 - Encounter for other preprocedural examination Medications: New sodium,potassium,mag sulfates 17.5-3.13-1.6 gram (Suprep Bowel Prep Kit) 480 mL orally; FOR COLONOSCOPY PREP 354 mL 0RF bisacodyl (Dulcolax (bisacodyl)) 10 mg (2 x 5 mg) PO BEDTIME 4 tabs 0RF 2 days Changed From pantoprazole 40 mg PO DAILY 30 tabs 6RF To pantoprazole 40 mg PO BID 60 tabs 6RF Refilled sennosides (senna) 17.2 mg (2 x 8.6 mg) PO BEDTIME 60 caps 6RF constipation 30 days K59.04 - Chronic idiopathic constipation pantoprazole 40 mg PO DAILY 30 tabs 6RF Coding Level of Care Code Est Pt Level 4 (67016) Diagnoses GERD (gastroesophageal reflux disease) K21.9 Positive colorectal cancer screening using Cologuard test R19.5 Pre-op examination Z01.818 Time Spent (min) 33
--- OUTSIDE RECORDS SUMMARY | 2024-06-26 16:04 | XMS_ITS | Encounter Summary ---
Author Organization [employer] [facility] Address [address] [place] [address] Care Team Providers Care Hide Mill Worker Name Role Phone Unavailable Primary Care Provider Unavailabl e Encounter Details Date Type Department Care Team (Latest Contact Info) Description 02/20/2018 Abstract C CONVERSIONS Dental, Provider, DDS Social History Tobacco [...]
--- OUTSIDE RECORDS SUMMARY | 2024-06-26 16:04 | XMS_ITS | Clinical Summary ---
Author Organization [employer] [facility] Address [address] [place] [address] Care Team Providers Care Transportation Refrigeration Technician Name Role Phone Unavailable Primary Care Provider [...] Relevant to Health Maintenance Insurance [address] [place] [address] DENTAL [facility]
[2024-06-26 16:05] VITALS: BP 120/72; PULSE 92; O2SAT 96; BMI 27.4
== END 2024-06-26 16:40 | disposition home or self-care (01) ==
LOC: HO.HGI 16:03
PROVIDERS: PCP Internal Medicine; Visit Provider Nurse Practitioner
DX: K21.9 Gastro-esophageal reflux disease without esophagitis (principal); R19.5 Other fecal abnormalities; Z12.11 Encounter for screening for malignant neoplasm of colon; Z01.818 Encounter for other preprocedural examination
CPT/HCPCS: 99214

== ENCOUNTER → 2024-07-02 08:40 | Outpatient (RCR) | payer MEDICARE, SELFPAY ==
--- NOTE | 2020-03-18 13:08 | MHC.PT.EP ---
[facility] [place] Office [place] Office [place] Office [address] [phone] F: [phone] F: [phone] F: [phone] F: [phone] Physical Therapy Plan of Care Date of Evaluation: 03/18/20 Date of Surgery: Diagnosis: R knee pain. Assessment: Pt is a 54 y/o male referred to PT for R knee pain who presents with signs and Sx consistent with R knee dysfunction resulting in decreased tolerance for kneeling, squatting and negotiating stairs secondary to decreased R knee and hip strength, lateral R knee joint line tenderness, dysfunction with functional activities of squatting and kneeling, mild decreased LE and patellar alignment, and pain. Pt is deemed an appropriate candidate to receive skilled PT services in order to address his physical impairments to improve his functional ability and return to prior level which was unrestricted of kneeling and squatting activities. Frequency and Duration: The patient will be seen 2 x / wk x 5 wks. Short Term Goals: in 1 week: initiate HEP with evidence of compliance. In 3 weeks: improve lateral joint line tenderness to no more than 1+ (mild), initial 3+ (considerable). [facility] Goals: In 5 weeks: I with HEP. In 5 weeks: improve R knee extension MMT to 5/5. initial 4+/5. In 5 weeks: Pt will be able to perform light kneeling and squatting activities with managed Sx. Treatment Plan: Modalities to reduce pain, spasms and effusion. Manual therapy to restore motion and function. Therapeutic exercise to improve strength and flexibility. Neuromuscular re-education for posture and balance. Therapeutic activities to return to functional activities of daily living. Electronically signed by: Umair Vivar PT Please sign and return to therapist. Thank you for your referral.
== END | disposition home or self-care (01) ==
LOC: HO.PTCHIC 03-18 07:48
PROVIDERS: PCP Internal Medicine; Visit Provider Internal Medicine
DX: M25.561 Pain in right knee (principal)
CPT/HCPCS: 97035; 97110; 97161

== ENCOUNTER 2024-09-16 13:44 | Outpatient (AMB) | payer OTHER, SELFPAY ==
--- OUTSIDE RECORDS SUMMARY | 2024-09-16 13:57 | XMS_ITS | Encounter Summary ---
Author Organization [employer] [facility] Address [address] [place] [address] Care Team Providers Care Box Shook Patcher Name Role Phone Unavailable Primary Care Provider [...]
--- OUTSIDE RECORDS SUMMARY | 2024-09-16 13:57 | XMS_ITS | Clinical Summary ---
Author Organization [address] [place] [address] Address [address] [place] [address] Phone Care Team Providers Care Conduit Mechanic Name Role Phone Yaima Collier MD Primary Care Provider [phone] Social History Tobacco Use Types Packs/Day Years Used Date Smoking Tobacco: Never Assessed Sex and Gender Information Value Date Recorded Sex Assigned at Not on file Legal Sex Male 7:28 AM EDT Gender Identity Not on file Sexual Orientation Not on file Plan of Treatment Upcoming Encounters Date Type Department Care Team (Late st Contact Info) Description 09/24/2024 1:00 PM EDT Consult Orthopedic Surgery - [place] [id number] [id number] [place], [place] [address] [address] Health Maintenance Due Date Last Done Comments DTaP,Tdap,and Td Vaccines (1 - Tdap) 10/31/1982 Pneumococcal Vaccine: 50+ Ye ars (1 of 1 - PCV) 10/31/2013 Zoster Vaccines (1 of 2) 10/31/2013 COVID-19 Vaccine ( - 2023-2 5 season) 2023 Depression Screening 02/14/2024 Cholesterol Screening (Lipid Panel) 07/18/2024 Colorectal Cancer Screening: Colonoscopy 07/18/2024 HIV Screening 07/18/2024 Hepatitis C Screening 07/18/2024 Medicare Annual Wellness Visit 07/18/2024 Social Influencers of Health Screening 07/18/2024 Influenza Vaccine (#1) 2024 RSV Immunization Adult Patie nts (1 - 1-dose 75+ series) 10/31/2038 HIB [...] on patient's age to complete this topic MMR Vaccines Aged Out No longer eligi ble based on patient's age to complete this topic Meningococcal ACWY Vaccine Aged Out N o longer eligible based on patient's age to complete this topic Meningococcal B Vaccine Aged Out No l onger eligible based on patient's age to complete this topic RSV Immunization Patients Un felipe 20 months Aged Out No longer eligible b ased on patient's age to complete this topic Varicella Vaccines Aged Out No longer eligible based on patient's age to complete this topic Insurance [employer] MEDICARE Member Subscriber Plan / Payer (Ef fective 2018-Present) Name:CHAPO BUCHANAN Relation to Subscriber:Self Name:Chapo Baron Payer ID:[id number] Group ID:[id number] Type:Not on file Address: [place] [address] [address] [id number] Care Teams Conduit Mechanic Relationship Specialty Start Date End Date Yaima Collier MD [address] [place] [address] PCP - General Internal Medicine 07/18/24
[2024-09-16 14:54] VITALS: BP 108/78; PULSE 72; O2SAT 96; BMI 27.0
--- NOTE | 2024-09-16 14:54 | A.OFFVIS_ITS ---
Vital Signs 09/16/24 14:54 Height 5 ft 6 in Weight 167 lb BMI 27.0 BP 108/78 Blood Pressure Location Lt brachial Position Sitting Pulse 72 Pulse Source Pulse Oximeter Pulse Oximetry (%) 96 Oxygen Delivery Method Room Air Intake Visit Reasons: Follow up Intake Note: Patient presents follow up JOSE medication. Compliance in chart( days, >=4hrs-4%, Average usage- 16 min, Med pressure- 9.0, Med leaks- 17.1, AHI-2.0). Local Company Tanker Driver Required: Yes Local Company Tanker Driver Language: Reconciling Clerk Services: Local Company Tanker Driver Offered & Declined Local Company Tanker Driver Name: Spouse Information Interpreted: non-clinical & clinical Accompanied by: Spouse Allergies No Known Allergies (No Known Allergies*) Allergy (Verified 09/16/24 14:58) HPI Comments Details: 58y/o Right handed Setswana speaking male comes for evaluation of action tremors in his hands and jose. He is accompanied by his girlfriend Shamika who helps with translation today. JOSE Compliance Report 05/2024-08/2024 Total avg use is days, >=4hrs-4%, Avg daily use 16 min Med pressure- 9.0, Med leaks- 17.1, AHI-2.0. His tremors are intermittent, started about 1 year ago and usually with intentional activity and fine motor coordination. He can write without tremors. He has some problems with using utensils for dinner and when he picks up cups. He is able to drink from a cup. Has increased tremors when using a screwdriver for house projects or works on cars. He is not socially embarrassed. His girlfriend notices he is flailing, thrashing limb movements in his sleep, his leg pain keeps him up at night. He has scoliosis and chronic back pain and his mood can be irritable due to pain. He has h/o moderate jose, but very compliant as the machine is too big for his table. He is a smoker and interested smoking cessation since his recent CT scan showing (3) small nodules in the R. Lung and (2) in the left, he started smoking cessation. He sees his psychiatrist every 2 months and therapist every 3 weeks for depression. [facility] Medical History Foot callus Hip pain, bilateral Scoliosis Right knee pain H. pylori infection Sleep difficulties H pylori ulcer Tremor History of urinary hesitancy Osteopenia Nicotine dependence, cigarettes, uncomplicated Periodic limb movements of sleep Coarse tremors Sleep apnea Schizophrenia Primary hypogonadism in male Hyperlipidemia GERD (gastroesophageal reflux disease) Spondylosis Carotid artery aneurysm Dextroscoliosis Depression Anxiety Surgical History History of surgery on arm History of esophagogastroduodenoscopy (EGD) H/O colonoscopy Family History Father No problems noted. Mother Breast cancer Brother Mental health disorder PTSD (post-traumatic stress disorder) Social History Household Members: Family Housing: Apartment Are you a primary point of care technician to a significant other at home: No Do you presently have visiting nurse or other home services: Yes Alcohol intake: current Alcohol intake frequency: does not drink Patient Tobacco Use Status: Current everyday Tobacco user Tobacco use type: Cigarette Cigarettes Per Day: 3 e-Cigarette/Vaping Use: Never Used Second Hand Smoke Exposure: No Advance Directives Date on File: 11/20/19 service: No Current occupational status: unemployed Current occupational exposures/hazards: No Cognitive needs: No Hearing needs: No Vision needs: Yes Physical Exam Vital Signs: Last Vital Signs Pulse 72 09/16/24 14:54 BP 108/78 09/16/24 14:54 Pulse Ox 96 09/16/24 14:54 Oxygen Delivery Method Room Air 09/16/24 14:54 BMI result Body Mass Index 27.0 Const General: cooperative, healthy appearing and comfortable Nutritional Appearance: average body habitus Orientation/consciousness: patient oriented x3 Eyes Pupils: Equal, round and reactive pupils present Neck Neck: Yes no meningeal signs Neuro Other: mild amanuel action tremors L> R. No rest tremors General: patient oriented x3, tone normal, moves all extremities, no meningeal signs and no focal motor deficits Cranial nerves: Yes Facial sensation intact/muscles of mastication intact, Yes Equal, round and reactive pupils present, Yes Normal accommodation reflex present, Yes Nystagmus not present, Yes Normal facial strength present, Yes Midline tongue present, Yes Ability to bilaterally rotate head present and Yes Ability to bilaterally elevate shoulders present Cognition (Neuro): normal cognition Gait exam (Neuro): Normal gait present Motor exam (neuro): 5/5 motor strength present throughout and Normal motor muscl e tone present throughout Deep tendon reflexes (DTR's): Right triceps reflex intensity grade: 1+, Left triceps reflex intensity grade: 1+, Rt Biceps (C5, C6): 1+, Left biceps reflex intensity grade: 1+, Right brachioradialis reflex intensity grade: 1+, Left brachioradialis reflex intensity grade: 1+, Right patellar reflex intensity grade: 1+ and Left patellar reflex intensity grade: 1+ Coordination: [id number] test normal Psych Appearance: grossly normal Affect: normal affect Attitude: cooperative Thought process: Normal thought process present Results Reviewed Results Reviewed: 03/2024 FINDINGS: Lung nodules: Multiple new pulmonary nodules including a 2 mm nodule at the right lung apex (series 4, image 25), a 3 mm nodule in the right upper lobe (series 4, image 56), and a 4 mm nodule in the right lower lobe (series 4, image 95). On the left, there are 3 mm nodules in the left upper lobe (series 4, images 33, 34, 61, and 65). A 4 mm nodule along the left major fissure is compatible with an intrapulmonary lymph node. Assessment & Plan Assessment & Plan (1) Sleep apnea: Comment: Moderately severe degree of sleep apnea. The AHI was 17/hr and oxygen jess was 84% Code(s): G47.30 - Sleep apnea, unspecified Category: Medical Qualifiers: Sleep apnea type: obstructive Qualified Code(s): G47.33 - Obstructive sleep apnea (adult) (pediatric) (2) Periodic limb movements of sleep: Code(s): G47.61 - Periodic limb movement disorder Category: Medical (3) Nicotine dependence, cigarettes, uncomplicated: Comment: (30+PYH) Code(s): F17.210 - Nicotine dependence, cigarettes, uncomplicated Category: Medical Plan JOSE continues to be non- compliant we reviewed the risk factors and comorbidities related to JOSE today and he understands the necessity of using his machine despite being frustrated with the cpap machine, he is willing to slowly acclimate to the mask. Tremors / RLS Increased Gabapentin 300mg PO daily at bedtime. Low back pain may continue to use flexiril 5mg po daily at bedtime. Will send for titration, once more acclimated with use of cpap, as he is a current smoker. (smoking cessation) offered today. Continue Melatonin 5mg po 3 hours prior to bedtime. D/C Ambien Medications: New melatonin 5 mg PO DAILY 90 caps 2RF sleep 3 months MDD 5mg G47.33 - Obstructive sleep apnea (adult) (pediatric), G47.61 - Periodic limb movement disorder Patient Instructions: Sleep Hygiene provided: set a scheduled bedtime and wake time to help regulate the circadian rhythm and balance the release of pituitary hormones. Sleep in a dark room, temperatures below 68 degrees, and no devices n bed. Limit caffeinated products 6 hours prior to bed, and limit fluids 2-4 hours prior to bed. Gentle night yoga, diffusing essential oils, and playing soft music can be relaxing. Coding Level of Care Code Est Pt Level 4 (00894) Diagnoses Obstructive sleep apnea syndrome G47.33 Sleep apnea type: obstructive Periodic limb movements of sleep G47.61 Nicotine dependence, cigarettes, uncomplicated F17.210 Time Spent (min) 30 Comment patient education smokign cessation, JOSE and hypoxemia.
== END 2024-09-16 15:50 | disposition home or self-care (01) ==
LOC: HO.HSMS 13:45
PROVIDERS: PCP Internal Medicine; Visit Provider Physician Assistant Medical
DX: G47.33 Obstructive sleep apnea (adult) (pediatric) (principal); G47.61 Periodic limb movement disorder; F17.210 Nicotine dependence, cigarettes, uncomplicated
CPT/HCPCS: 99214

== ENCOUNTER → 2024-09-16 13:44 | Outpatient (BNVA) | payer OTHER, SELFPAY | PROVIDERS: PCP Internal Medicine; Visit Provider Physician Assistant Medical | DX: G47.33 Obstructive sleep apnea (adult) (pediatric) (principal); G47.61 Periodic limb movement disorder; F17.210 Nicotine dependence, cigarettes, uncomplicated | CPT/HCPCS: 99212 ==

== ENCOUNTER 2024-10-15 16:02 | Outpatient (REF) | payer OTHER, SELFPAY ==
--- NOTE | ~2024-10-15 | CT_ITS ---
CLINICAL HISTORY: R91.8 - Other nonspecific abnormal finding of lung field --- Additional Notes or Special Instructions: 2 23 25 LDCT Lung RADS 3 - 4mm RLL nodule, 4mm left major fissure nodule - CT lung cancer screening (LDCT) Comparison: None provided ##L1# Technique: Axial CT images of the chest using low-dose technique. Referring provider counseled the patient on shared decision-making for LDCT screening. Additional counseling was provided on smoking cessation. Effective radiation dose total: DLP 74.1 mGycm, CTDIvol 1.9 mGy. Findings: Lung: No suspicious pulmonary nodules or masses. Mild pulmonary emphysema. 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 Scoliosis. IMPRESSION: No suspicious pulmonary nodules or masses. LungRADS 1: Negative exam. Continue annual screening with low dose Chest CT in 12 months. This document has been electronically signed by: Nomi So DO on 10/16/2024 12:12:06
--- OUTSIDE RECORDS SUMMARY | 2024-10-15 16:45 | XMS_ITS | Clinical Summary ---
Author Organization [facility] Address [address] [place] [address] Care Team Providers Care Analyst Market Intelligence Name Role Phone Unavailable Primary Care Provider [...] Panel 1963 SDOH Screening 1963 Sigmoidoscopy 1963 Disability Screening 1963 Alcohol/Substance Use Screening 1975 Hepatitis C Screening 10/31/1981 DTaP/Tdap/Td Vaccines (1 - Tdap) 10/31/1982 Pneumococcal Vaccine: 50+ Years (1 of 2 - PCV) 10/31/1982 Zoster Vaccines (1 of 2) 10/31/2013 Dental Oral Exam 04/25/2023 10/24/2022 Dental Prophylaxis 07/04/2023 01/02/2023 COVID-19 Vaccine (3 - 2023-2 5 season) 2023 12/23/2020, 05/18/2020 Dental X-Ray: Bitewings 10/26/2023 10/24/2022 Tobacco Screening 01/03/2024 01/02/2023 Influenza Vaccine (#1) 2024 11/26/2015 Dental X-Ray: Full Mouth 10/25/2025 023, 04/29/2022 [...] Relevant to Health Maintenance Insurance DENTAL - [facility]
--- OUTSIDE RECORDS SUMMARY | 2024-10-15 16:45 | XMS_ITS | Encounter Summary ---
Author Organization [employer] [facility] Address [address] [place] [address] Care Team Providers Care Anesthesia Associate Name Role Phone Unavailable Primary Care Provider [...]
--- OUTSIDE RECORDS SUMMARY | 2024-10-15 16:45 | XMS_ITS | Clinical Summary ---
Author Organization [address] [facility] Address [address] [place] [address] Phone Care Team Providers Care Salary And Wage Administrator Name Role Phone Yaima Collier MD Primary Care Provider [phone] Allergies No known active allergies Encounters Date Type Department Care Team Description 09/24/2024 1:00 PM EDT Consult Orthopedic [place] [id number] [phone] Long Marsh DPM Pain in both feet (Primary Dx); Arthritis of both feet; Hammertoes of both feet; Metatarsalgia of right foot; Callus from Last 3 Months Social History Tobacco Use Types Packs/Day Years Used Date Smoking Tobacco: Never Assessed Sex and Gender Information Value Date Recorded Sex Assigned at Not on file Legal Sex Male 7:28 AM EDT Gender Identity Not on file Sexual Orientation Not on file Plan of Treatment Upcoming Encounters Date Type Department Care Team ([facility] st Contact Info) Description 12/25/2024 1:00 PM EST Office Visit Orthopedic [facility] [address] [phone] Long [place] DPM [address] [address] Health Maintenance Due Date Last Done Comments [...] Subscriber Plan / Payer (Ef fective 2018-Present) Name:KEE BUCHANAN Relation to Subscriber:Self Name:Kee Baron Payer ID:[id number] Group ID:[id number] Type:Not on file Address: [facility] [place] [address] Care Teams Salary And Wage Administrator Relationship Specialty Start Date End Date Yaima Collier MD [address] [facility] [place] [id number] PCP - General Internal Medicine 07/18/24
== END 2024-10-15 16:03 | disposition home or self-care (01) ==
LOC: HO.CT 16:02
PROVIDERS: PCP Internal Medicine; Visit Provider Physician Assistant Medical
DX: R91.8 Other nonspecific abnormal finding of lung field (principal); F17.210 Nicotine dependence, cigarettes, uncomplicated
CPT/HCPCS: 71250

== ENCOUNTER → 2024-10-15 16:05 | Outpatient (BNV) | payer OTHER, SELFPAY | PROVIDERS: PCP Internal Medicine; Visit Provider Family Medicine | DX: R91.8 Other nonspecific abnormal finding of lung field (principal) | CPT/HCPCS: 71250 ==

== ENCOUNTER 2024-12-27 08:41 | Outpatient (AMB) | payer OTHER, SELFPAY ==
--- OUTSIDE RECORDS SUMMARY | 2024-12-27 08:57 | XMS_ITS | Encounter Summary ---
Author Organization [employer] [facility] Address [address] [place] [address] Care Team Providers Care Carpenter Refrigerator Name Role Phone Unavailable Primary Care Provider [...]
--- OUTSIDE RECORDS SUMMARY | 2024-12-27 08:57 | XMS_ITS | Clinical Summary ---
Author Organization [address] [place] [address] Address [address] [place] [address] Phone Care Team Providers Care Earth Burner Name Role Phone Yaima Collier MD Primary Care Provider [phone] Allergies No known active allergies Social History Tobacco Use Types Packs/Day Years Used Date Smoking Tobacco: Never Assessed Sex and Gender Information Value Date Recorded Sex Assigned at Not on file Legal Sex Male 7:28 AM EDT Gender Identity Not on file Sexual Orientation Not on file Plan of Treatment Health Maintenance Due Date Last Done Comments Colorectal Cancer Screening: Colonoscopy 1965 DTaP,Tdap,and Td Vaccines (1 - Tdap) 10/31/1982 Pneumococcal Vaccine: 50+ Ye ars (1 of 1 - PCV) 10/31/2013 Zoster Vaccines (1 of 2) 10/31/2013 Depression Screening 02/14/2024 Cholesterol Screening (Lipid Panel) 07/18/2024 HIV Screening 07/18/2024 Hepatitis C Screening 07/18/2024 Medicare Annual Wellness Visit 07/18/2024 Social Influencers of Health Screening 07/18/2024 COVID-19 Vaccine (1 - 2024-2 6 season) 2024 Influenza Vaccine (#1) 2024 RSV Immunization Adult [...] patient's age to complete this topic Insurance [facility] MEDICARE Member Subscriber Plan / Payer (Ef fective 2018-Present) Name:KEE BUCHANAN Relation to Subscriber:Self Name:Kee Baron Payer ID:[id number] Group ID:[id number] Type:Not on file Address: [place] [address] [place] [address] Care Teams Earth Burner Relationship Specialty Start Date End Date Yaima Collier MD [address] [place] [address] PCP - General Internal Medicine 07/18/24
--- OUTSIDE RECORDS SUMMARY | 2024-12-27 08:57 | XMS_ITS | Clinical Summary ---
Author Organization [employer] [facility] Address [address] [facility] [address] [place] [address] Care Team Providers Care Last Inserter Name Role Phone Unavailable Primary Care Provider [...] Exam 04/25/2023 10/24/2022 Dental Prophylaxis 07/04/2023 01/02/2023 Dental X-Ray: Bitewings 10/26/2023 10/24/2022 Tobacco Screening 01/03/2024 01/02/2023 COVID-19 Vaccine (3 - 2024-2 6 season) 2024 12/23/2020, 05/18/2020 Influenza Vaccine (#1) 2024 11/26/2015 Dental X-Ray: [...] Relevant to Health Maintenance Insurance DENTAL - [facility]
[2024-12-27 09:03] VITALS: BP 112/75; PULSE 80; BMI 27.8
--- NOTE | 2024-12-27 09:03 | A.OFFVIS_ITS ---
Vital Signs 12/27/24 09:03 Height 5 ft 6 in Weight 171 lb 15.369 oz BMI 27.8 BP 112/75 Blood Pressure Location Lt brachial Position Sitting Pulse 80 Intake Visit Reasons: 6 mo f/u GERD, CIC , SCOPE Intake Note: Chapo presents to in office 6 months follow up of GERD and CIC. CC: Patient report doing well, he reports occasional acid reflux but states that he takes a Tums and symptoms resolve. Denies other GI symptoms or concerns today. Watch Train Assembler Required: Yes Watch Train Assembler Language: Belarusian Accompanied by: Self / Same As Patient Allergies No Known Allergies (No Known Allergies*) Allergy (Verified 12/27/24 09:08) HPI HPI 6 mo f/u GERD, CIC , SCOPE: Details: Assessment & Plan (1) GERD (gastroesophageal reflux disease): Code(s): K21.9 - Gastro-esophageal reflux disease without esophagitis Category: Medical (2) Positive colorectal cancer screening using Cologuard test: Comment: 03/2024. refer to GI Code(s): R19.5 - Other fecal abnormalities Category: Medical (3) Pre-op examination: Code(s): Z01.818 - Encounter for other preprocedural examination Category: Medical Plan CYPRIOT #[id number] He has not needed to use the senna but he still would like to have it on hand, he is asking this pantoprazole be increased to fact to twice a day as he found that his heartburn seems to be returning and he needs that dosing schedule. Apparently, he had a positive COloguard test with his PCP and now needs a colonoscopy. He really does not want the PEG as he really dislikes it, will try for suprep. There are no prior problems with anesthesia or sedation. NO ID problems. He has JOSE and he smokes, but no diagnosed resp problems and he denies any cardiac problems. ROV 6 mos. Orders: Orders Comprehensive Met. Panel Today K21.9 - Gastro-esophageal reflux disease without esophagitis, R19.5 - Other fecal abnormalities, Z01.818 - Encounter for other preprocedural examination Colonoscopy - GI Use Only Today K21.9 - Gastro-esophageal reflux disease without esophagitis, R19.5 - Other fecal abnormalities, Z01.818 - Encounter for other preprocedural examination Complete Blood Count Auto Diff Today K21.9 - Gastro-esophageal reflux disease without esophagitis, R19.5 - Other fecal abnormalities, Z01.818 - Encounter for other preprocedural examination Medications: New sodium,potassium,mag sulfates 17.5-3.13-1.6 gram (Suprep Bowel Prep Kit) 480 mL orally; FOR COLONOSCOPY PREP 354 mL 0RF bisacodyl (Dulcolax (bisacodyl)) 10 mg (2 x 5 mg) PO BEDTIME 4 tabs 0RF 2 days Changed From pantoprazole 40 mg PO DAILY 30 tabs 6RF To pantoprazole 40 mg PO BID 60 tabs 6RF Refilled sennosides (senna) 17.2 mg (2 x 8.6 mg) PO BEDTIME 60 caps 6RF constipation 30 days K59.04 - Chronic idiopathic constipation pantoprazole 40 mg PO DAILY 30 tabs 6RF LABS: Laboratory Tests 10/19/23 04/24/24 06/26/24 12:16 08:35 16:54 WBC 6.7 9.4 Hgb 16.5 16.9 Hct 47.8 49.0 MCV 89.3 MCH 30.8 Plt Count 224 270 Estimated GFR > 60 > 60 Total Bilirubin 0.3 AST 21 ALT 32 Alkaline Phosphatase 73 COLONOSCOPY BIOPSY TODAY'S VISIT Belarusian #[id number] He has not needed to use the senna but he still would like to have it on hand, he is asking this pantoprazole be increased to fact to twice a day [facility] Medical History Foot callus Hip pain, bilateral Scoliosis Right knee pain H. pylori infection Sleep difficulties H pylori ulcer Tremor History of urinary hesitancy Osteopenia Nicotine dependence, cigarettes, uncomplicated Periodic limb movements of sleep Coarse tremors Sleep apnea Schizophrenia Primary hypogonadism in male Hyperlipidemia GERD (gastroesophageal reflux disease) Spondylosis Carotid artery aneurysm Dextroscoliosis Depression Anxiety Surgical History History of surgery on arm History of esophagogastroduodenoscopy (EGD) H/O colonoscopy Family History Father No problems noted. Mother Breast cancer Brother Mental health disorder PTSD (post-traumatic stress disorder) Social History Household Members: Family Housing: Apartment Are you a primary career based intervention coordinator to a significant other at home: No Do you presently have visiting nurse or other home services: Yes Alcohol intake: current Alcohol intake frequency: does not drink Patient Tobacco Use Status: Current everyday Tobacco user Tobacco use type: Cigarette Cigarettes Per Day: 3 e-Cigarette/Vaping Use: Never Used Second Hand Smoke Exposure: No Advance Directives Date on File: 11/20/19 service: No Current occupational status: unemployed Current occupational exposures/hazards: No Cognitive needs: No Hearing needs: No Vision needs: Yes Review of Systems Const Denies fatigue, Denies fever(s), Denies night sweats, Denies poor appetite and Denies weight loss ENT Reports Normal hearing present, Denies dental pain, Denies dysphagia, Denies hearing loss, Denies mouth pain, Denies odynophagia, Denies throat swelling, Denies tongue swelling and Reports other (Dentition adequate) Card Reports no additional complaints Resp Reports no additional complaints GI Details: Denies abdominal pain, Denies melena, Denies bloating, Denies hematochezia, Denies constipation, Denies GI cramping, Denies dysphagia, Denies excessive flatus, Denies early satiety, Reports heartburn, Denies diarrhea, Denies nausea, Denies odynophagia, Denies vomiting and Denies hematemesis Skin/Breast Denies pruritus, Denies lesions, Denies rash and Denies jaundice Neuro Reports Normal hearing present and Denies Abnormal speech present Endo Denies fatigue Aller/Immun Denies throat swelling and Denies tongue swelling Physical Exam Vital Signs: Last Vital Signs Pulse 80 12/27/24 09:03 BP 112/75 12/27/24 09:03 BMI result Body Mass Index 27.8 Const General: cooperative, no acute distress, well developed and well groomed Nutritional Appearance: well nourished and overweight Orientation/consciousness: oriented to person, oriented to place and oriented to time Limitations: language barrier HEENT Head: Yes normocephalic and Yes atraumatic Eyes General: appearance normal, both eyes and all related structures Pupils: Equal, round and reactive pupils present Neck Neck: Yes normal visual inspection and Yes no lymphadenopathy Thyroid: Thyroid normal Resp Effort & Inspection: normal respiratory effort and able to speak in complete sentences Auscultation: clear to auscultation bilaterally Cardio Rate: regular rate Rhythm: regular rhythm Heart sounds: Normal, physiologic split S2 sound present Peripheral pulses: radial pulses present and posterior tibial pulses present GI Inspection: No distended and No Abdominal panniculus present Palpation (GI): Soft to palpation, nontender, no guarding, not rigid and Hepatosplenomegaly present Percussion: Yes normal to percussion Auscultation: normal bowel sounds Rectal Exam - Male: Yes deferred Skin General skin exam: no rashes or lesions noted, turgor normal, skin not dry, no jaundice, No spider nevi and no striae Rashes: no rashes Nails: normal Neuro General: oriented to person, oriented to place and oriented to time Cranial nerves: Yes Equal, round and reactive pupils present and Yes Normal hearing present Speech: No Abnormal speech present Extrem General: Yes normal to inspection, No clubbing, No cyanosis and No edema Psych Appearance: grossly normal and well kempt Mental Status: mental status grossly normal Speech and movement: Normal speech and movement present Affect: normal affect Attitude: cooperative Thought process: Normal thought process present and not confabulating Thought content: Normal thought content present Insight: Limited insight present (Psych) Judgement: Limited judgement present (Psych) Assessment & Plan Assessment & Plan (1) GERD (gastroesophageal reflux disease): Code(s): K21.9 - Gastro-esophageal reflux disease without esophagitis Category: Medical (2) Chronic idiopathic constipation: Code(s): K59.04 - Chronic idiopathic constipation Category: Medical (3) Positive colorectal cancer screening using Cologuard test: Comment: 03/2024. refer to GI Code(s): R19.5 - Other fecal abnormalities Category: Medical Plan Belarusian #[id number] Chapo has not yet been contacted for his colonoscopy. He did not understand the importance of follow-up/getting it done in relation to his positive Cologuard test. He did not think he was ?due for 1 yet. ? I explained to him the importance and I will check into why this was not scheduled even though it was ordered last June. He has not needed to use the senna for his constipation and he has been doing well on his pantoprazole twice a day. There are no prior problems with anesthesia or sedation. NO ID problems. He has JOSE and he smokes, but no diagnosed resp problems and he denies any cardiac problems. COLONOSCOPY BIOPSY Medications: Refilled pantoprazole 40 mg PO BID 60 tabs 6RF Coding Level of Care Code Est Pt Level 3 (26999) Diagnoses GERD (gastroesophageal reflux disease) K21.9 Chronic idiopathic constipation K59.04 Positive colorectal cancer screening using Cologuard test R19.5
== END 2024-12-27 09:36 | disposition home or self-care (01) ==
LOC: HO.HGI 08:42
PROVIDERS: PCP Internal Medicine; Visit Provider Nurse Practitioner
DX: K21.9 Gastro-esophageal reflux disease without esophagitis (principal); K59.04 Chronic idiopathic constipation; R19.5 Other fecal abnormalities
CPT/HCPCS: 99213

== ENCOUNTER → 2024-12-27 08:41 | Outpatient (BNVA) | payer OTHER, SELFPAY | PROVIDERS: PCP Internal Medicine; Visit Provider Nurse Practitioner | DX: K21.9 Gastro-esophageal reflux disease without esophagitis (principal); K59.04 Chronic idiopathic constipation; R19.5 Other fecal abnormalities | CPT/HCPCS: 99212 ==